=== PATIENT | male | born 1960 | race Caucasian/White ===

== ENCOUNTER 2019-07-19 23:42 | Inpatient (IN) | payer SELFPAY ==
[~2019-07-19] VITALS: Ht 177.8 cm; Wt 89.4 kg
[~2019-07-19 23:42] MED LIST: LISINOPRIL10 MG PO; MOBIC15 MG; SEROQUEL25 MG PO; ZOLOFT50 MG PO
[2019-07-20] MEDS ORDERED: METHYLPREDNISOLONE SOD SUCC 125 MG/2ML VIAL IV ONE
[2019-07-20] MEDS ORDERED: ASPIRIN 81 MG CHEW TAB PO ONE
[2019-07-20] MEDS ORDERED: ALBUTEROL/IPRATROPIUM 3 ML NEB NEB ONE
[2019-07-20] MEDS ORDERED: SODIUM CHLORIDE 0.9% 1000ML 1,000 ML IV SCH
[2019-07-20 00:03] LABS: BASOPHILS # (AUTO) 0.1 (0.0-0.1); BASOPHILS % 0.7 % (0.0-1.0); EOSINOPHILS # (AUTO) 0.2 (0.0-0.4); HEMATOCRIT 41.3 % (38.2-49.6); LYMPHOCYTES # (AUTO) 2.9 (1.0-3.2); LYMPHOCYTES % 38.9 % (18.0-39.1); MEAN CORPUSCULAR HEMOGLOBIN 31.7 pg (28-32); MEAN CORPUSCULAR HGB CONC 33.9 g/dL (31-35); MEAN CORPUSCULAR VOLUME 93.4 fL (81-99); MONOCYTES # (AUTO) 0.5 (0.2-0.8); MONOCYTES % 6.7 % (4.4-11.3); NEUTROPHILS # (AUTO) 3.8 (2.1-6.9); NEUTROPHILS % 51.2 % (38.7-80.0); PLATELET COUNT 214 x10e3/uL (140-360); RED BLOOD COUNT 4.42 x10e6/uL (4.3-5.7); RED CELL DISTRIBUTION WIDTH 12.4 % (11.7-14.4)
[2019-07-20 00:29] LABS: AMYLASE 23 U/L (25-125); LIPASE 10 U/L (8-78)
[2019-07-20 00:32] LABS: ALANINE AMINOTRANSFERASE 61 IU/L (0-55); ALBUMIN 3.8 g/dL (3.5-5.0); ALBUMIN/GLOBULIN RATIO 1.1 (0.8-2.0); ALKALINE PHOSPHATASE 57 IU/L (40-150); ANION GAP 14.9 mmol/L (8-16); BLOOD UREA NITROGEN 19 mg/dL (7-26); BUN/CREATININE RATIO 19 (6-25); CALCIUM 9.2 mg/dL (8.4-10.2); CARBON DIOXIDE 24 mmol/L (22-29); CHLORIDE 104 mmol/L (98-107); CREATINE KINASE 142 IU/L (30-200); CREATININE, SERUM 0.98 mg/dL (0.72-1.25); EST GLOMERULAR FILTRATION RATE > 60 ML/MIN (60-); GLUCOSE 120 mg/dL (74-118); POTASSIUM 3.9 mmol/L (3.5-5.1); SODIUM 139 mmol/L (136-145)
--- NOTE | 2019-07-20 01:01 | NUR ---
PT RESTING WITH EYES CLOSED, EASILY AROUSED, RESP NONLAB, NAD NOTED. STATES PAIN AND SOB GONE AND FEELS MUCH BETTER
--- NOTE | 2019-07-20 01:04 | Diagnostic Imaging Report ---
EXAMINATION: CHEST SINGLE (PORTABLE) INDICATION: Short of breath COMPARISON: Chest radiograph 05/15/2015 FINDINGS: AP view TUBES and LINES: None. LUNGS: Lungs are well inflated. Increased pulmonary interstitial markings. Prominent central pulmonary vasculature. PLEURA: No pleural effusion or pneumothorax. HEART AND MEDIASTINUM: Cardiac size is mildly enlarged. BONES AND SOFT TISSUES: No acute osseous lesion. Soft tissues are unremarkable. UPPER ABDOMEN: No free air under the diaphragm. IMPRESSION: Mild cardiomegaly and mild pulmonary interstitial edema. Signed by: Leo Gomez DO on 07/20/2019 1:01 AM
[2019-07-20] MEDS ORDERED: ALBUTEROL SULF 0.083% NEB SOLN 3 ML NEB NEB STA (01:54)
--- NOTE | 2019-07-20 01:54 | NUR ---
PT SITTING UP IN BED STATING HE IS FEELING SOB AGAIN, HOLDING HIS CHEST. DR ESCOBAR AWARE, WENT TO ROOM TO RE-EVAL. SCATTERED WHEEZES NOTED, NEBS ORDERED. AWAKE ALERT SKIN W/D RESP MILDLY LABORED. RT NOTIFIED
[2019-07-20] MEDS ORDERED: FUROSEMIDE INJ 10 MG/ML 4 ML VIAL IV ONE (02:15)
[2019-07-20] MEDS ORDERED: FUROSEMIDE INJ 10 MG/ML 4 ML VIAL ONE (02:17)
--- NOTE | 2019-07-20 02:26 | NUR ---
PT INCREASINGLY SOB, DIAPHORETIC, CRACKLES NOTED NOW AFTER NEB. PLACED ON BIPAP 15/5 40% RATE 12. TOLERATING WELL.
--- NOTE | 2019-07-20 02:47 | NUR ---
PT STATES MUCH BETTER NOW. AWAKE ALERT SKIN W/D RESP NONLAB. WARM BLANKET FOR COMFORT. VOIDED 600CC IN URINAL
--- OUTSIDE RECORDS SUMMARY | 2019-07-20 02:49 | XMS REPORT ---
Author Author [facility] Address Unknown Phone Unavailable Care Team Providers Care Locomotive Firer/Fireman Name Role Phone Amanda ESCOBAR Unavailable Unavailable Problems This patient has no known problems. Allergies, Adverse Reactions, Alerts This patient has no known allergies or adverse reactions. Medications This patient has no known medications. Results Test Description Test Time Test Comments Text Results Atomic Results Result Comments CHEST SINGLE (PORTABLE) 2019-07-20 01:00:00 [place] [id number] Patient Name: BRIAN RODRIGUEZ MR #: [id number] : 1960 Age/Sex: 59/M Req #: [id number] Adm Physician: Ordered by: KINDRA ESCOBAR MD Report #: [id number] Location: ER Room/Bed: Procedure: [id number] DX/CHEST SINGLE (PORTABLE) Exam Date: 07/20/19 Exam Time: 0030 REPORT STATUS: Signed EXAMINATION: CHEST SINGLE (PORTABLE) IN DICATION: Short of breath COMPARISON: Chest radiograph 05/15/2015 FINDINGS: AP view TUBES and LINES: None. LUNGS: Lungs are well inflated. Increased pulmonary interstitial markings. Prominent central pulmonary vasculature. PLEURA: No pleural effusion or pneumothorax. HEART AND MEDIASTINUM: Cardiac size is mildly enlarged. BONES AND SOFT TISSUES: No acute osseous lesion. Soft tissues are unremarkable. UPPER ABDOMEN: No free air under the diaphragm. IMPRESSION: Mild cardiomegaly and mild pulmonary interstitial edema. Signed by: Leo Gomez DO on 07/20/2019 1:01 AM Dictated By: LEO GOMEZ DO 0 Transcribed By: ALISSON on 07/20/19100 COPY TO: KINDRA ESCOBAR MD
--- NOTE | 2019-07-20 03:12 | NUR ---
PT STATES FEELS MUCH BETTER NOW. AWAKE ALERT SKIN W/D RESP NONLAB, NAD NOTED.
--- NOTE | 2019-07-20 06:47 | NUR ---
PT STATES WANTS BIPAP OFF, MAKING HIM FEEL ANXIOUS. MD AWARE, PLACED ON 2L NC, TOLERATING WELL. AWAKE ALERT SKIN W/D RESP NONLAB. NAD NOTED.
--- NOTE | 2019-07-20 06:48 | NUR ---
REPORT TO ANN KOEHLER
--- NOTE | 2019-07-20 06:49 | NUR ---
received report from off going nurse. patient in room in bed, awake and alert. no s/s of acute distress. resp even and nonlabored. pending room assignment for admission. bed down call light in reach, will continue to monitor.
--- NOTE | 2019-07-20 08:36 | NUR ---
DR. REEVES ROUNDING ON PT AT THIS TIME.
[2019-07-20 08:46] LABS: CREATINE KINASE MB 3.9 ng/mL (0-5.0)
--- NOTE | 2019-07-20 09:14 | NUR ---
DR. DAHL AT BEDSIDE ROUNDING ON PT AT THIS TIME.
[2019-07-20] MEDS: FUROSEMIDE INJ 10 MG/ML 4 ML VIAL IV SCH ×2 (09:35→17:39)
[2019-07-20] MEDS: CARVEDILOL 12.5 MG TAB PO SCH ×2 (09:35→17:39)
[2019-07-20] MEDS: LOSARTAN POTASSIUM 25 MG TAB PO SCH ×2 (09:36→17:39)
[2019-07-20] MEDS: ASPIRIN 81 MG ENTERIC COATED PO SCH (09:36)
--- NOTE | 2019-07-20 14:52 | History and Physical ---
HISTORY OF PRESENT ILLNESS: Mr. Bowers is a 59-year-old man who denies any prior medical history and denies taking any medications at home. He came to the emergency room with shortness of breath. The patient states that for the last 3 days, he has been short of breath and when he goes to bed, he gets very short of breath. He had to stand up, get under the ceiling fan because he cannot breathe. He also has some chest pain, but he denies any lower extremity edema. No nausea, no vomiting. Last night, shortness of breath got worse and he decided to come to the emergency room. PAST MEDICAL HISTORY: He denies. ALLERGIES: NO KNOWN DRUG ALLERGIES. SOCIAL HISTORY: He lives at home. He does not smoke, but he drinks. PAST SURGICAL HISTORY: He denies. PHYSICAL EXAMINATION: GENERAL: Today, he is awake and alert. He states he is feeling much better today. VITAL SIGNS: Temperature is 98, blood pressure is 148/74, heart rate is 94, respiratory rate is 17. HEART: Regular rate. LUNGS: Clear to auscultation. ABDOMEN: Soft. EXTREMITIES: Lower extremity, no edema and no erythema. LABORATORY DATA: On the blood work, white count 7.46, hemoglobin 14, and hematocrit 41.3. Potassium 3.9, creatinine is 0.98. Cardiac enzymes so far negative. BNP 136.8, amylase 23, lipase 10. Chest x-ray shows mild cardiomegaly with mild pulmonary interstitial edema. ASSESSMENT: 1. Shortness of breath and orthopnea, concerning for congestive heart failure. 2. Chest pain, rule out coronary artery disease. 3. Hypertension. PLAN: At present time, is to do cardiac rehab nurse. Cardiac enzymes x3. EKG, echocardiogram, and Cardiology consult. The patient probably will require a stress test, if he is stable. Continue aspirin 81 mg daily, losartan 25 mg twice a day, carvedilol 6.25 mg twice a day, and Lasix 40 mg IV twice a day. Continue to monitor electrolytes. All this was discussed with the patient. All questions were answered to satisfaction. MD FER Salvador/SEBASTIAN /[id number]
[2019-07-20 16:44] LABS: CREATINE KINASE MB 3.4 ng/mL (0-5.0)
--- NOTE | 2019-07-20 19:45 | NUR ---
PT ARRIVED FROM ER IN A STRETCHER WITH C/O CHF .AAOX3,AMBULATES.NO RESP.DISTRESS NO PAIN VOICED.TELE #[address]IV TO RIGHT AC IS PATENT.ORIENTED TO THE UNIT.BED LOCKED AND IN LOWEST POSITION.PHONE AND CALL LIGHT WITHIN REACH.INSTRUCTED TO CALL FOR ASSISTANCE NEEDED.
[2019-07-20 20:15] VITALS: BP 118/69
[2019-07-20 20:30] VITALS: BP 118/69
[2019-07-20 20:47] VITALS: BP 118/69
[2019-07-20 23:57] VITALS: BP 106/63
[2019-07-21 04:00] VITALS: BP 123/76
--- NOTE | 2019-07-21 04:22 | NUR ---
Stool occult blood sent to the lab.
[2019-07-21 06:36] LABS: BASOPHILS % 0.3 % (0.0-1.0); EOSINOPHILS % 0.3 % (0.0-6.0); HEMATOCRIT 42.1 % (38.2-49.6); LYMPHOCYTES # (AUTO) 3.1 (1.0-3.2); LYMPHOCYTES % 25.5 % (18.0-39.1); MEAN CORPUSCULAR HEMOGLOBIN 31.3 pg (28-32); MEAN CORPUSCULAR HGB CONC 33.3 g/dL (31-35); MONOCYTES # (AUTO) 0.7 (0.2-0.8); MONOCYTES % 5.8 % (4.4-11.3); NEUTROPHILS # (AUTO) 8.2 (2.1-6.9); NEUTROPHILS % 67.4 % (38.7-80.0); PLATELET COUNT 230 x10e3/uL (140-360); RED BLOOD COUNT 4.48 x10e6/uL (4.3-5.7); RED CELL DISTRIBUTION WIDTH 12.5 % (11.7-14.4)
[2019-07-21 07:08] LABS: ALANINE AMINOTRANSFERASE 49 IU/L (0-55); ALBUMIN 3.5 g/dL (3.5-5.0); ALKALINE PHOSPHATASE 50 IU/L (40-150); ANION GAP 12.6 mmol/L (8-16); BLOOD UREA NITROGEN 27 mg/dL (7-26); BUN/CREATININE RATIO 27 (6-25); CALCIUM 9.3 mg/dL (8.4-10.2); CARBON DIOXIDE 26 mmol/L (22-29); CHLORIDE 102 mmol/L (98-107); EST GLOMERULAR FILTRATION RATE > 60 ML/MIN (60-); GLUCOSE 148 mg/dL (74-118); POTASSIUM 3.6 mmol/L (3.5-5.1); SODIUM 137 mmol/L (136-145)
--- NOTE | 2019-07-21 07:14 | NUR ---
Bed side shift report given to the oncoming Rn.stable condition.
[2019-07-21 07:30] LABS: CHOL/HDL RATIO 3.6 (3.9-4.7)
[2019-07-21 07:50] LABS: THYROID STIMULATING HORMONE 1.314 uIU/mL (0.350-4.940)
[2019-07-21 08:32] VITALS: BP 108/61
--- NOTE | 2019-07-21 08:32 | NUR ---
MD DAHL INTO SEE PT, DISCUSSED POC
--- NOTE | 2019-07-21 09:34 | NUR ---
MD REEVES INTO SEE PT, DISCUSSED POC Addendum: 07/21/19 at 1001 by Viviana Nelson RN MD REEVES AWARE OF CURRENT BP 108/61, OKAYED TO GIVE AM MEDICATIONS
[2019-07-21] MEDS: CARVEDILOL 12.5 MG TAB PO SCH (09:40)
[2019-07-21] MEDS: ASPIRIN 81 MG ENTERIC COATED PO SCH (09:40)
[2019-07-21] MEDS: FUROSEMIDE INJ 10 MG/ML 4 ML VIAL IV SCH (09:40)
[2019-07-21] MEDS: LOSARTAN POTASSIUM 25 MG TAB PO SCH (09:40)
[2019-07-21 09:59] VITALS: BP 108/61
[2019-07-21] MEDS ORDERED: LASIX40 MG PO (11:33)
[2019-07-21] MEDS ORDERED: LOSARTAN POTASS25 MG PO (11:34)
[2019-07-21] MEDS ORDERED: COREG12.5 MG PO (11:35)
--- NOTE | 2019-07-21 11:41 | NUR ---
SPOKE WITH MD DAHL TO MAKE AWARE THAT MD REEVES HAS DISCHARGED PT FROM [facility], MD DAHL INSTRUCTED NURSE TO MAKE SURE MD REEVES AWARE OF ECHO RESULTS PRIOR TO DISCHARGING PT, TELEPHONED MD REEVES, AWAITING CALL BACK
--- NOTE | 2019-07-21 11:53 | NUR ---
SPOKE WITH MD REEVES, "AWARE OF ECHO RESULTS, OKAY TO SEND HOME"
[2019-07-21 12:55] VITALS: BP 116/81
--- NOTE | 2019-07-21 13:03 | NUR ---
DISCHARGE INSTRUCTIONS REVIEWED WITH PT, VERBALIZED UNDERSTANDING, AWAITING RIDE FOR DISCHARGE
--- NOTE | 2019-07-21 14:04 | NUR ---
PT AMBULATED OFF UNIT WITH NURSE AT SIDE FOR DISCHARGE, NO CHANGE IN CONDITION
--- NOTE | 2019-07-21 15:04 | Discharge Summary ---
HOSPITAL COURSE: Mr. Bowers is a 59-year-old man, who denies any prior medical history, came to the emergency room complaining of 3 days history of shortness of breath with orthopnea, also have some chest pain. No nausea. No vomiting. No lower extremity edema. He has been seen by finance accounting internship, started on diuretics, NOEMI inhibitor, ARBs, and beta-blockers as well as aspirin. He is doing much better. The plan is to discharge him home if it is okay with the finance accounting internship. PHYSICAL EXAMINATION: GENERAL: He is awake and alert. He wants to go home because he has a job interview. VITAL SIGNS: Temperature is 96.6, blood pressure 123/76. HEART: Regular rate. LUNGS: Clear to auscultation. ABDOMEN: Soft. LABORATORY DATA: On the blood work, potassium 3.6, creatinine is 1.0, glucose is 148. White count is 12.2, hemoglobin is 14, hematocrit is 42.1. Chest x-ray showed mild cardiomegaly with mild pulmonary interstitial edema. ASSESSMENT: 1. Shortness of breath with orthopnea, rule out congestive heart failure. 2. Chest pain. 3. Hypertension. PLAN: At present time is the patient is going to be on Lasix 40 mg once a day, aspirin 81 mg once a day, losartan 25 mg twice a day, Coreg 6.25 mg p.o. twice a day. We are going to discuss with finance accounting internship and if he agrees, the patient is going to be discharged home today or tomorrow. Please see home medication reconciliation list. He is to call me or come back to the emergency room if any recurrent problem. If not, he needs to follow up with his PCP in one week. MD FER Salvador/SEBASTIAN /[id number]
== END 2019-07-21 13:45 | disposition home or self-care (01) | DRG 293 ==
LOC: ER 23:42 → ERHOLD 07-20 02:41 → MED/SURG 07-20 19:33
PROVIDERS: ADMIT Internal Medicine; ATTEND Internal Medicine
DX: I11.0 Hypertensive heart disease with heart failure (principal); I25.5 Ischemic cardiomyopathy; F10.20 Alcohol dependence, uncomplicated; I44.7 Left bundle-branch block, unspecified; F10.10 Alcohol abuse, uncomplicated; I50.9 Heart failure, unspecified; I25.10 Atherosclerotic heart disease of native coronary artery without angina pectoris
CPT/HCPCS: 36415; 71045; 80053; 80061; 82150; 82270; 82550; 82553; 83690; 83880; 84443; 84484; 85025; 85379; 93005; 93306; 94640; 94660; 96374; 99284; J1940; J2930; J7030

== ENCOUNTER 2020-03-18 13:02 | Inpatient (IN) | payer OTHER, SELFPAY ==
[~2020-03-18] VITALS: Ht 177.8 cm; Wt 89.4 kg
[~2020-03-18 13:02] MED LIST changes: +COREG12.5 MG PO; +LASIX40 MG PO; +LOSARTAN POTASS25 MG PO
[2020-03-18 14:09] LABS: BASOPHILS % 0.4 % (0.0-1.0); EOSINOPHILS # (AUTO) 0.1 (0.0-0.4); EOSINOPHILS % 1.1 % (0.0-6.0); HEMATOCRIT 37.1 % (38.2-49.6); HEMOGLOBIN 12.2 g/dL (14.0-18.0); LYMPHOCYTES # (AUTO) 1.5 (1.0-3.2); LYMPHOCYTES % 21.1 % (18.0-39.1); MEAN CORPUSCULAR HEMOGLOBIN 31.4 pg (28-32); MEAN CORPUSCULAR HGB CONC 32.9 g/dL (31-35); MEAN CORPUSCULAR VOLUME 95.4 fL (81-99); MONOCYTES # (AUTO) 0.5 (0.2-0.8); NEUTROPHILS # (AUTO) 5.1 (2.1-6.9); NEUTROPHILS % 69.9 % (38.7-80.0); PLATELET COUNT 207 x10e3/uL (140-360); RED BLOOD COUNT 3.89 x10e6/uL (4.3-5.7); RED CELL DISTRIBUTION WIDTH 13.8 % (11.7-14.4)
[2020-03-18] MEDS ORDERED: METHYLPREDNISOLONE SOD SUCC 125 MG/2ML VIAL IV ONE (14:15)
[2020-03-18] MEDS ORDERED: LEVALBUTEROL HCL SOLN NEBU 1.25 MG/3 ML NEB INH ONE (14:15)
--- NOTE | 2020-03-18 14:32 | Diagnostic Imaging Report ---
EXAM: CHEST SINGLE (PORTABLE) DATE: 03/18/2020 1:35 PM INDICATION: Stress of breath COMPARISON: 07/20/2019 FINDINGS: The trachea is midline. There are increased interstitial markings present bilaterally. There is no evidence for large focal consolidation, pneumothorax, or significant pleural effusion. The cardiac silhouette remains enlarged. No acute osseous abnormalities identified. IMPRESSION: Cardiomegaly and increased pulmonary interstitial markings which are nonspecific but can be seen in the setting of edema. Signed by: Dr. Nilton Caldwell MD on 03/18/2020 2:28 PM
[2020-03-18 14:33] LABS: ALANINE AMINOTRANSFERASE 54 IU/L (0-55); ALBUMIN 3.6 g/dL (3.5-5.0); ALBUMIN/GLOBULIN RATIO 1.1 (0.8-2.0); ALKALINE PHOSPHATASE 56 IU/L (40-150); BLOOD UREA NITROGEN 10 mg/dL (7-26); BUN/CREATININE RATIO 14 (6-25); CALCIUM 8.9 mg/dL (8.4-10.2); CARBON DIOXIDE 22 mmol/L (22-29); CHLORIDE 106 mmol/L (98-107); CREATINE KINASE 94 IU/L (30-200); CREATININE, SERUM 0.73 mg/dL (0.72-1.25); EST GLOMERULAR FILTRATION RATE > 60 ML/MIN (60-); GLUCOSE 114 mg/dL (74-118); SODIUM 139 mmol/L (136-145)
[2020-03-18 16:10] LABS: ABG PH 7.38 (7.35-7.45)
[2020-03-18 16:11] LABS: ABG HCO3 24 mmol/L (22-26); ABG PCO2 41 mmHg (35-45)
--- NOTE | 2020-03-18 16:18 | Emergency Department Note ---
History of Present Illnes History of Present Illness Chief Complaint: Respiratory Stated Complaint: DIFFICULTY BREATHING 3 DAYS History of Present Illness This is a 59 year old male . 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 Any updates have been documented here. (SOL DUCKWORTH NP) Past Medical History Recent Fever: No Clinical Suspicion of Infectio: No New/Unexplained Change in Ment: No Past Medical History: Hypertension, CHF Other Medical History: CHRONIC L SHOULDER PAIN DEPRESSION/ANXIETY Past Surgical History: None (SOL DUCKWORTH NP) Social History Smoking Cessation: Never Smoker Alcohol Use: None Any Illegal Drug Use: No TB Exposure/Symptoms: No (SOL DUCKWORTH NP) Family History Family history of heart diseas: Yes (SOL DUCKWORTH NP) Other Last Tetanus: 2014 Any Pre-Existing Lines (PICC,: No Is patient up to date on immun: No (SOL DUCKWORTH NP) Review of Systems ROS Narrative Patient is a 59 year old male that presents with SOB x 3 days. (SOL DUCKWORTH NP) Review of Systems EENTM: no symptoms Cardiovascular: no symptoms Gastointestinal/Abdominal: no symptoms Genitourinary: no symptoms Musculoskeletal: no symptoms Integumentary: no symptoms Neurological: no symptoms Psychological: no symptoms Endocrine: no symptoms Hematological/Lymphatic: no symptoms Review of other systems All other systems reviewed and negative. (SOL DUCKWORTH NP) Physical Exam Related Data Allergies: Coded Allergies: No Known Allergies (Unverified , 05/13/15) Triage Vital Signs Vital Signs Date Time Temp Pulse Resp B/P (MAP) Pulse Ox O2 Delivery O2 Flow Rate FiO2 03/18/20 13:03 98.4 108 20 164/82 98 (SOL DUCKWORTH NP) Exam Narrative Exam Narrative 1400-*Patient is a 59 year old that presents with SOB x 3 days that is progressively worsening. Patient states that walking any distance SOB worsens. 1600-Discussed all results and admission. patient states he is feeling better after the breathing treatment. OK to admission and all questions answered 1618- Patient admitted to [facility] (SOL DUCKWORTH NP) Physical Exam CONSTITUTIONAL Constitutional: well-developed, well-nourished HENT HENT: normocephalic EYES Eyes: PERRL NECK Neck: ROM normal PULMONARY Pulmonary: rhonchi CARDIOVASCULAR Cardiovascular: tachycardia GASTROINTESTINAL Abdominal: soft GENITOURINARY SKIN Skin: warm, dry MUSCULOSKELETAL Musculoskeletal: ROM normal NEUROLOGICAL Neurological: alert, oriented x 3, DTRs normal PSYCHOLOGICAL Psychiatric/behavioral: mood/affect normal (SOL DUCKWORTH NP) Results Laboratory Lab results reviewed: Yes (SOL DUCKWORTH NP) Imaging Y: Yes (SOL DUCKWORTH NP) Diagnostics Tests Diagnostic test(s) reviewed: Yes Diagnostic comments EKG 1453 Sinus Rhythm LBBB NM- 148 QRS-168 Interpreted by myself and Dr Welsh (SOL DUCKWORTH NP) Critical Care Time Subsequent provider I assumed direction of critical care for this patient from another provider of my specialty. (SOL DUCKWORTH NP) Assessment & Plan Assessment & Plan Problems: (1) Respiratory distress (VASILIY WELSH DO) Last Vital Signs Date Time Temp Pulse Resp B/P (MAP) Pulse Ox O2 Delivery O2 Flow Rate FiO2 03/18/20 13:03 98.4 108 20 164/82 98 (SOL DUCKWORTH NP) Home Meds Reported Medications Carvedilol (COREG) 12.5 Mg Tab, 6.25 MG PO BID, #60 07/21/19 Losartan Potassium (LOSARTAN POTASSIUM) 25 Mg Tablet, 25 MG PO BID, #60 07/21/19 Furosemide (LASIX) 40 Mg Tablet, 40 MG PO DAILY, #30 TAB 07/21/19 Attestation Medications in the ED The patient's history, exam findings, diagnostics, and a summary of any interventions or procedures was reviewed in detail with our RACHEL. I personally interviewed and examined the patient, and I have reviewed and agree with the HPI andexam. My personal exam shows age approrpiate mildly tachypenic male, maintaining airway. I confirm the diagnosis as documented by the RACHEL. I have reviewed and agree with the care plan articulated in the disposition section. (SANDHIR, KATHE AMANDA JOHNNA NP March 18, 2020 14:06 VASILIY WELSH DO March 18, 2020 22:58
[2020-03-18] MEDS ORDERED: ONDANSETRON HCL INJ 2MG/ML 2ML 2 MG/ML VIAL IV PRN (16:30)
[2020-03-18] MEDS ORDERED: ASPIRIN 81 MG CHEW TAB PO ONE (16:30)
--- NOTE | 2020-03-18 17:30 | NUR ---
PT RECEIVED FROM ER. PT IS AOOX4. CALL LIGHT WITH IN EASY REACH. BED IS LOW AND LOCKED. SIDE RAILS X2. INSTRUCTED PT TO USE CALL LIGHT FOR ALL THE NEEDS. EDUCATED PT ABOUT FALL PRECAUTIONS. PT VERBALIZED UNDERSTANDING. PT DENIES NEEDS AT THIS TIME.
[2020-03-18 17:45] VITALS: BP_SYST 138; BP_SYST 144; BP_DIAS 87; BP_DIAS 98
[2020-03-18 18:00] VITALS: BP 138/87
[2020-03-18] MEDS: CARVEDILOL 12.5 MG TAB PO SCH (18:10)
[2020-03-18 18:28] VITALS: BP 138/98
--- NOTE | 2020-03-18 19:15 | NUR ---
BEDSIDE SHIFT REPORT GIVEN TO THE AVIONICS MANAGER RN. PT DENIED FURTHER NEEDS.
--- NOTE | 2020-03-18 19:21 | NUR ---
pt walking rounds complete, pt lying on his left side resp even and unflavored at this time. tele monitor in place, will cont to monitor call light in reach.
--- NOTE | 2020-03-18 19:40 | Consultation ---
DATE OF CONSULTATION: Pulmonary Critical Care Consultation CHIEF COMPLAINT: Dyspnea. HISTORY OF PRESENT ILLNESS: The patient is a 59-year-old man. He has a history of prior respiratory problems. He required hospitalization [facility] in the fall of 2018 with shortness of breath. He had a cardiac evaluation at that time that was negative. He now returns with dyspnea for several days. He denies any chest pain. He is not having fevers or cough. After arriving in the emergency department, he received some bronchodilators as well as some Solu-Medrol, and states that he feels better, although he is hungry. PAST MEDICAL HISTORY: 1. The patient denies any prior history of asthma or bronchitis. 2. Hypertension. PAST SURGICAL HISTORY: Noncontributory. ALLERGIES: THERE ARE NO KNOWN DRUG ALLERGIES. SOCIAL HISTORY: The patient is not a smoker. He is not an active drinker. PHYSICAL EXAMINATION: VITAL SIGNS: The patient is afebrile. HEENT: Shows no facial swelling or erythema. CARDIAC: Reveals regular rate and rhythm with normal S1 and S2. LUNGS: Auscultation of lungs reveals rhonchorous breath sounds bilaterally. There is no wheezing. ABDOMEN: Soft and nontender. There is no rebound or guarding. EXTREMITIES: Shows no leg edema or calf tenderness. There is no cyanosis or clubbing. SKIN: Shows no rashes. NEUROLOGICAL: Shows no focal abnormalities. LABORATORY DATA: White blood cell count is 7.3 and the hemoglobin is 12.2. The platelet count is 207. BUN and creatinine ratio is 10 to 0.73. Other electrolytes are within normal limits. BNP is 326. RADIOGRAPHIC DATA: Cardiomegaly, some mild increased interstitial markings. IMPRESSION: 1. Dyspnea of unclear etiology. 2. Hypertension. PLAN: 1. Echocardiogram and serial cardiac enzymes. 2. Continue bronchodilators. 3. Monitor blood pressure. MD KONRAD Aqiuno/SEBASTIAN /[id number]
[2020-03-18 20:27] VITALS: BP 161/90
[2020-03-18 21:00] VITALS: BP 161/90
[2020-03-18] MEDS ORDERED: ZOLPIDEM TARTRATE 5 MG TAB PO PRN (21:00)
[2020-03-19] VITALS (8 sets, daily range): BP systolic 120–155; BP diastolic 83–97
--- NOTE | 2020-03-19 01:27 | NUR ---
pt resting, resp even and unlabored at this time, bed alarm on no distress noted,alexander light in reach.
[2020-03-19] MEDS: LOSARTAN POTASSIUM 25 MG TAB PO SCH (06:00)
--- NOTE | 2020-03-19 07:00 | NUR ---
BEDSIDE SHIFT REPORT RECEIVED FROM THE VICE PRESIDENT AND PORTFOLIO MANAGER RN. EDUCATED PT ABOUT FALL PRECAUTIONS. PT VERBALIZED UNDERSTANDING. CALL LIGHT WITH IN EASY REACH. INSTRUCTED PT TO USE CALL LIGHT FOR ALL THE NEEDS. BED IS LOW AND LOCKED. SIDE RAILS X2. PT DENIES NEEDS AT THIS TIME.
--- NOTE | 2020-03-19 07:02 | NUR ---
walking rounds complete, report given to on coming nurse. pt stable at shift change.
[2020-03-19] MEDS: LEVALBUTEROL HCL SOLN NEBU 1.25 MG/3 ML NEB INH SCH ×2 (07:10→19:57)
[2020-03-19 07:58] LABS: BASOPHILS % 0.1 % (0.0-1.0); HEMATOCRIT 41.2 % (38.2-49.6); HEMOGLOBIN 13.2 g/dL (14.0-18.0); LYMPHOCYTES # (AUTO) 1.1 (1.0-3.2); MEAN CORPUSCULAR VOLUME 96.7 fL (81-99); MONOCYTES # (AUTO) 0.7 (0.2-0.8); MONOCYTES % 5.6 % (4.4-11.3); NEUTROPHILS # (AUTO) 10.2 (2.1-6.9); NEUTROPHILS % 84.9 % (38.7-80.0); PLATELET COUNT 188 x10e3/uL (140-360); RED BLOOD COUNT 4.26 x10e6/uL (4.3-5.7)
[2020-03-19 08:46] LABS: ALANINE AMINOTRANSFERASE 49 IU/L (0-55); ALBUMIN 3.6 g/dL (3.5-5.0); ALKALINE PHOSPHATASE 55 IU/L (40-150); ANION GAP 13.5 mmol/L (8-16); BLOOD UREA NITROGEN 11 mg/dL (7-26); BUN/CREATININE RATIO 15 (6-25); CALCIUM 9.2 mg/dL (8.4-10.2); CARBON DIOXIDE 19 mmol/L (22-29); CHLORIDE 110 mmol/L (98-107); CREATININE, SERUM 0.71 mg/dL (0.72-1.25); EST GLOMERULAR FILTRATION RATE > 60 ML/MIN (60-); GLUCOSE 129 mg/dL (74-118); POTASSIUM 4.5 mmol/L (3.5-5.1); SODIUM 138 mmol/L (136-145)
[2020-03-19] MEDS: CARVEDILOL 12.5 MG TAB PO SCH ×2 (08:50→16:49)
[2020-03-19 09:56] LABS: CREATINE KINASE MB 2.8 ng/mL (0-5.0)
[2020-03-19] MEDS ORDERED: ONDANSETRON HCL 4 MG ORAL DISINTEGRATING TAB PO PRN (13:00)
--- NOTE | 2020-03-19 14:26 | NUR ---
ASSESSMENT: Spiritual distress Referred by Nursing. Pt overwhelmed by illness and responsibilities. Pt recounted deaths in his immediate family over the past 6 years. Pt expressed emotions thru words and tears. 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 Pt worried about his health. Intervention: Provided unhurried empathic listening. Facilitated illness review and storytelling. Provided information on how to reach patient relations representative, if needed. Outcome: Pt expressed appreciation for support, Will follow as able. [employer] Consultant Spiritual Care Department O: [phone]
[2020-03-19 17:20] LABS: CREATINE KINASE MB 2.5 ng/mL (0-5.0)
--- NOTE | 2020-03-19 19:00 | NUR ---
BEDSIDE SHIFT REPORT GIVEN TO THE MODERN GREEK STUDIES PROFESSOR RN. PT DENIED FURTHER NEEDS.
--- NOTE | 2020-03-20 00:37 | History and Physical ---
PCP: Not listed. CONSULTING PHYSICIAN: Dr. Reinier Mederos. CHIEF COMPLAINT: Dyspnea and shortness of breath. HISTORY OF PRESENT ILLNESS: Mr. Bowers is a 59-year-old male with complaints of 3-day duration of shortness of breath. He has also complained to the staff that he awakens with shortness of breath. Denies any sick contacts or recent traveling. PAST MEDICAL HISTORY: Hypertension, systolic congestive heart failure, chronic left shoulder pain, depression/anxiety, insomnia. PAST SURGICAL HISTORY: Noncontributory. FAMILY HISTORY: Noncontributory. SOCIAL HISTORY: Per previous H and P, lives at home. Does not smoke, but he does drink alcohol. ALLERGIES: NO KNOWN ALLERGIES. MEDICATIONS: He is on 40 mg of Lasix daily at home along with Coreg 6.25 mg p.o. b.i.d. and losartan potassium 25 mg p.o. b.i.d. REVIEW OF SYSTEMS: The patient is asleep, very difficult to arouse. Per staff, the patient has complained of insomnia. He has had difficulty sleeping for the last 3 nights and states he does not want to be bothered until 0430 in the morning for morning vital signs per the staff. He has complained of difficulty swallowing, dyspnea on exertion, shortness of breath, awakening from sleep with shortness of breath, as well as anxiety. PHYSICAL EXAMINATION: VITAL SIGNS: Temperature 96.3, T-max 98.4, heart rate 97, blood pressure 123/84, respirations 20, oxygen saturation 97%. He is currently on oxygen at 2 L via nasal cannula. GENERAL: Supine, lying on his right side, asleep. LUNGS: Generally clear to auscultation on oxygen at 2 L/minute via cannula. HEENT: EOMI. NECK: Supple. CARDIOVASCULAR: Regular rate and rhythm. No murmur. ABDOMEN: Bowel sounds positive. Soft and nontender. EXTREMITIES: Without pitting edema. No clubbing or cyanosis. NEUROLOGIC: GCS 14; eye 3, verbal 5, motor 6. LABORATORY DATA: WBCs yesterday 7.30, hemoglobin 12.2, hematocrit 37.1, and platelets 207. PH of 7.38, pCO2 of 41, HCO3 of 24, base excess -4, and FiO2 of 32% on blood gas. Sodium 139, potassium 4.0, chloride 106, CO2 of 22, BUN 10, creatinine 0.73, estimated GFR greater than 60, glucose 114, calcium 8.9, total bilirubin 0.6, AST 33, ALT 54, alkaline phosphatase 56, creatine kinase 94. CK-MB 3.7, troponin I 0.023. B-type natriuretic peptide 326.5. Total protein 6.9, albumin 3.6. Today, sodium 138, potassium 4.5, chloride 110, CO2 of 19, BUN 11, creatinine 0.71, estimated GFR greater than 60, glucose 129, calcium 9.2, total bilirubin 0.5, AST 28, ALT 49, alkaline phosphatase 55, total protein 7.2, albumin 3.6. Creatine kinase 72, CK-MB 2.8, troponin I 0.019 at around 08:00 a.m. Later at 1634, creatine kinase 63, CK-MB is 2.5, troponin I 0.032. WBC 12.05, hemoglobin 13.2, hematocrit 41.2, platelets 188, neutrophils 84.9%. IMAGING: Chest x-ray yesterday showed cardiomegaly and increased pulmonary interstitial markings, which are nonspecific, but can be seen in the setting of edema. Echocardiogram yesterday showed an ejection fraction of 30% with mild mitral regurgitation and tricuspid regurgitation. Today, 12-lead EKG showed normal sinus rhythm with a heart rate of 91. ASSESSMENT AND PLAN: 1. Dyspnea of unclear etiology. Pulmonology has been consulted. Continue to monitor chest x-ray results. He is on Xopenex neb treatments. 2. Chronic systolic congestive heart failure. Ejection fraction 30%. Elevated BNP at 326. Lasix resumed per home medications. Consider fluid restriction. 3. Controlled hypertension. Blood pressure 123/84. Continue losartan and Coreg. 4. Depression/anxiety. Monitor. 5. Dysphagia. We will ask Speech Language Pathology to obtain a bedside swallow evaluation. 6. Insomnia. The patient had an Ambien earlier and is sound to sleep. We will not disturb him until in the morning. 7. Prophylaxis. Protonix. Time spent 60 minutes. Billing code [id number]. Dictated by Gregg Noyola NP MD CORBY NavarroP/MODL /[id number]
[2020-03-20 01:09] VITALS: BP 168/91
[2020-03-20] MEDS: LOSARTAN POTASSIUM 25 MG TAB PO SCH (06:00)
--- NOTE | 2020-03-20 07:00 | NUR ---
BEDSIDE SHIFT REPORT RECEIVED FROM THE DONOR PROCESSOR RN. EDUCATED PT ABOUT FALL PRECAUTIONS. PT VERBALIZED UNDERSTANDING. CALL LIGHT WITH IN EASY REACH. INSTRUCTED PT TO USE CALL LIGHT FOR ALL THE NEEDS. BED IS LOW AND LOCKED. SIDE RAILS X2. PT DENIES NEEDS AT THIS TIME.
[2020-03-20] MEDS: LEVALBUTEROL HCL SOLN NEBU 1.25 MG/3 ML NEB INH SCH ×2 (07:25→14:55)
[2020-03-20] MEDS ORDERED: PANTOPRAZOLE SOD 40 MG TABEC PO SCH (07:30)
[2020-03-20 07:37] LABS: BASOPHILS # (AUTO) 0.1 (0.0-0.1); BASOPHILS % 0.5 % (0.0-1.0); EOSINOPHILS # (AUTO) 0.1 (0.0-0.4); EOSINOPHILS % 0.6 % (0.0-6.0); HEMATOCRIT 39.7 % (38.2-49.6); HEMOGLOBIN 12.9 g/dL (14.0-18.0); LYMPHOCYTES # (AUTO) 2.6 (1.0-3.2); LYMPHOCYTES % 25.2 % (18.0-39.1); MEAN CORPUSCULAR HEMOGLOBIN 31.5 pg (28-32); MEAN CORPUSCULAR HGB CONC 32.5 g/dL (31-35); MEAN CORPUSCULAR VOLUME 97.1 fL (81-99); MONOCYTES # (AUTO) 0.6 (0.2-0.8); MONOCYTES % 5.9 % (4.4-11.3); NEUTROPHILS % 67.2 % (38.7-80.0); PLATELET COUNT 219 x10e3/uL (140-360); RED BLOOD COUNT 4.09 x10e6/uL (4.3-5.7); RED CELL DISTRIBUTION WIDTH 14.1 % (11.7-14.4)
[2020-03-20 07:57] LABS: BLOOD UREA NITROGEN 22 mg/dL (7-26); BUN/CREATININE RATIO 29 (6-25); CALCIUM 8.4 mg/dL (8.4-10.2); CARBON DIOXIDE 23 mmol/L (22-29); CHLORIDE 108 mmol/L (98-107); CREATININE, SERUM 0.75 mg/dL (0.72-1.25); EST GLOMERULAR FILTRATION RATE > 60 ML/MIN (60-); GLUCOSE 96 mg/dL (74-118); PHOSPHORUS 3.3 MG/DL (2.3-4.7); SODIUM 139 mmol/L (136-145)
[2020-03-20 08:00] VITALS: BP 121/91
--- NOTE | 2020-03-20 08:00 | NUR ---
PAGED RESPIRATORY REGARDING NEB TREATMENT
[2020-03-20 08:40] VITALS: BP 121/91
[2020-03-20] MEDS ORDERED: FUROSEMIDE 40 MG TAB PO SCH (09:00)
[2020-03-20] MEDS: CARVEDILOL 12.5 MG TAB PO SCH ×2 (09:34→17:10)
--- NOTE | 2020-03-20 10:15 | NUR ---
CALL RECEIVED FROM LAB. COVID SWAB FROM ER PENDING FOR ORDER. PRAKASH PER DUONG KINNEY.
--- NOTE | 2020-03-20 10:45 | NUR ---
SWALLOW EVEAL AT BEDSIDE. NEW ORDER FOR MBS. OKAY PER DUONG KINNEY.
[2020-03-20 12:00] VITALS: BP 112/101
--- NOTE | 2020-03-20 12:32 | NUR ---
Discontinuing PT services since patient is Mod I in functional mobility. Thank you. Addendum: 03/20/20 at 1233 by David garcia PT Amended: Links added.
--- NOTE | 2020-03-20 12:40 | NUR ---
GAVE PACKET OF INFORMATION WITH COMMUNITY [employer] FOR ASSISTANCE WITH LOW TO NO INCOME TO PATIENT. RESOURCES THAT PATIENT MAY BE ABLE TO FOLLOW UP UPON DISCHARGE. PT EDUCATED ON EACH RESOURCE AND UNDERSTANDING HOW TO FOLLOW UP TO SEE IF QUALIFIED FOR EACH RESOURCE.
[2020-03-20 16:00] VITALS: BP 110/78
--- NOTE | 2020-03-20 16:29 | NUR ---
PAGED DR. Amanda GAN AND DUONG KINNEY PER THE PT REQUEST. OKAY TO D/C PT PER Amanda GAN. DUONG KINNEY WILL SE ETHE PT THIS EVENING. PT VERBALIZED UNDERSTANDING AND DENIED FURTHER NEEDS.
[2020-03-20] MEDS ORDERED: COREG12.5 MG PO (17:32)
[2020-03-20] MEDS ORDERED: SIMVASTATIN40 MG PO (17:32)
[2020-03-20] MEDS ORDERED: LASIX40 MG PO (17:32)
[2020-03-20] MEDS ORDERED: ASPIRIN EC81 MG PO (17:32)
[2020-03-20] MEDS ORDERED: LOSARTAN POTASS25 MG PO (17:32)
--- NOTE | 2020-03-20 17:39 | NUR ---
PRAKASH TO D/C PT PER DR. Ancelmo GAN.
--- NOTE | 2020-03-20 18:20 | NUR ---
PT DISCHARGED HOME SAFELY WITH FAMILY MEMBER. TELEMETRY AND IV REMOVED, TIP INTACT. DRESSING APPLIED. RX GIVEN. DISCHARGE INSTRUCTIONS GIVEN AND PATIENT VERBALIZED UNDERSTANDING. PT DENIED FURTHER NEEDS.
--- NOTE | 2020-03-21 04:47 | Discharge Summary ---
PRIMARY CARE PHYSICIAN: He has no primary care physician. CONSULTING PHYSICIANS: Reinier Mederos MD, with Pulmonology. Mr. Bowers is a 59-year-old male with complaints of 3-day duration of shortness of breath. He also complained to staff that he awakens with shortness of breath. Denied any sick contacts or recent traveling. He had been admitted here last July for similar signs and symptoms. ADMITTING DIAGNOSES: 1. Dyspnea of unclear etiology. 2. Chronic systolic congestive heart failure. 3. Uncontrolled hypertension. 4. Depression/anxiety. 5. Dysphagia. 6. Insomnia. DISCHARGE DIAGNOSES: 1. Dyspnea of unclear etiology. 2. Chronic systolic congestive heart failure. 3. Uncontrolled hypertension. 4. Depression/anxiety. 5. Dysphagia. 6. Insomnia. Chest x-ray had shown cardiomegaly with increased pulmonary-interstitial markings, which were nonspecific, but can be seen in the setting of edema. Echocardiogram done on 03/18 showed an ejection fraction of 30% with mild mitral regurgitation and tricuspid regurgitation. A 12-lead EKG showed normal sinus rhythm with a heart rate of 91. He was on Xopenex nebulizer treatments. His home medications for CHF were resumed including Lasix. B-type natriuretic peptide was elevated at 326. The patient does not recall when he last saw a physician. He does not have a PCP and he states he has had assistance from [employer] to apply for Medicaid. Today, he feels much better, much less short of breath. He slept very well last night, has had difficulty sleeping for 3 nights prior to that. He states obstructive sleep apnea runs in the family, however, as he does not see a physician regularly, he has not been tested with a sleep study. He had Ambien last night, which also helped him sleep. Speech language pathology saw the patient and completed a bedside swallow evaluation. He can follow up with Dr. Guallpa in his office in 1-2 weeks, hopefully obtain the Medicaid assistance that he needs, apparently constipated upon admission. Unable to have a bowel movement for the past 3 days, but had multiple BMs today and feels much better today. PHYSICAL EXAMINATION: VITAL SIGNS: Today, temperature 97.0, T-max 97.9, heart rate 74, blood pressure 121/91, respirations 19, oxygen saturation 99%. Height 5 feet 10 inches, weight 197 pounds. BMI 28.26. GENERAL: Sitting on the edge of the bed, wearing street clothes. LUNGS: With scattered minimal wheezing. HEENT: Extraocular eye movements intact. NECK: Supple. CARDIOVASCULAR: Regular rate and rhythm. No murmur. ABDOMEN: Bowel sounds positive. Soft, nontender. EXTREMITIES: No clubbing, edema, cyanosis, or signs of DVT. NEUROLOGIC: GCS 15. Nonfocal. LABORATORY DATA: Today, WBC is 10.33, hemoglobin 12.9, hematocrit 39.7, platelets 219. Yesterday, the WBCs of 12.05. Sodium 139, potassium 4.0, chloride 108, CO2 23, BUN 22, creatinine 0.75, GFR greater than 60. Glucose 96, calcium 8.4, phosphorus 3.3, magnesium 2.0. Coronavirus collected 03/18 is still pending. Echocardiogram completed on 03/18 showed an ejection fraction of 30%. Continue cardiac diet. Activity level as tolerated. Discharge prescriptions include: 1. Lasix 40 mg p.o. daily. 2. Losartan potassium 25 mg p.o. b.i.d. 3. Coreg 6.25 mg p.o. b.i.d. 4. Simvastatin 20 mg at bedtime. 5. Aspirin 81 mg daily. The case discussed with Dr. Mederos, who agrees the patient should be discharged home today. The patient either needs to establish a PCP and/or follow up with Dr. Guallpa in 1-2 weeks. A 60-day supply on all prescriptions have been provided. Dictated by Gregg Noyola NP MD DUY Navarro/SEBASTIAN /[id number]
== END 2020-03-20 18:50 | disposition home or self-care (01) | DRG 204 ==
LOC: ER 13:06 → ERHOLD 16:21 → MED/SURG2 17:47 → OBSVTOIN 03-20 15:47
PROVIDERS: ADMIT Internal Medicine; ATTEND Internal Medicine
DX: R06.00 Dyspnea, unspecified (principal); I50.22 Chronic systolic (congestive) heart failure; I11.0 Hypertensive heart disease with heart failure; F32.9 Major depressive disorder, single episode, unspecified; F41.9 Anxiety disorder, unspecified; G47.00 Insomnia, unspecified; R13.10 Dysphagia, unspecified
CPT/HCPCS: 36415; 36600; 71045; 80048; 80053; 82550; 82553; 82805; 82948; 83735; 83880; 84100; 84484; 85025; 87635; 93005; 93041; 93306; 94640; 99284; G0378; J2930

== ENCOUNTER 2020-04-11 02:08 | Emergency (ER) | payer SELFPAY ==
[~2020-04-11] VITALS: Ht 177.8 cm; Wt 89.4 kg
[~2020-04-11 02:08] MED LIST changes: +ASPIRIN EC81 MG PO; +SIMVASTATIN40 MG PO
--- OUTSIDE RECORDS SUMMARY | 2020-04-11 02:12 | XMS REPORT | Continuity of Care Document ---
Author Author [facility] t Organization [facility] Address [address] [place] [address] Phone Unavailable Care Team Providers Care Director Dance Name Role Phone NO, PCP PCP Unavailable Erika WELSH Attphys Unavailable Amanda ESCOBAR Attphys Unavailable Payers Payer Name Policy Type Policy Number Effective Date Expiration Date S eunice Joann NA [facility] [id number] [facility] Problems Condition Name Condition Details Condition Category Status Onset Date Resolution Date Last Treatment Date Treating Clinician Comments Source Cellulitis Cellulitis Problem Active 2015-05-13 00:00:00 [facility] Osteomyelitis Osteomyelitis Problem Active 2015-05-13 00:00:00 [facility] New onset of congestive heart failure New onset of congestiv e heart failure Problem Active [facility] Respiratory distress Respiratory distress Problem Active [facility] Allergies, Adverse Reactions, Alerts This patient has no known allergies or adverse reactions. Social History Social Habit Start Date Stop Date Quantity Comments Source Sex Assigned At 1960 00:00:00 1960 00:00:00 Male [facility] Medications Ordered Medication Name Filled Medication Name Start Date Stop Da te Current Medication? Ordering Clinician Indication Dosage Frequency Signature (SIG) Comments Components Source Aspirin (Aspirin Ec) 81 Mg TABLET. Aspirin (Aspirin Ec) 81 Mg TABLET. 2020-03-20 17:32:00 Yes 81 Daily [facility] Carvedilol (Coreg) 12.5 Mg TAB Carvedilol (Coreg) 12.5 Mg TA B 2020-03-20 17:32:00 Yes 6.25 Twice A Day [facility] Furosemide (Lasix) 40 Mg TABLET Furosemide (Lasix) 40 Mg TAB LET 2020-03-20 17:32:00 Yes 40 Daily [facility] Losartan Potassium Losartan Potassium 2020-03-20 17:32:00 Yes 25 Twice A Day [facility] Simvastatin Simvastatin 2020-03-20 17:32:00 Yes 20 T mariaelena At 9:00PM [facility] Carvedilol (Coreg) 12.5 Mg TAB Carvedilol (Coreg) 12.5 Mg TAB 2020-03-20 00:00:00 No 6.25 Twice A Day [facility] Furosemide (Lasix) 40 Mg TABLET Furosemide (Lasix) 40 Mg TABLET 2020-03-20 00:00:00 No 40 Daily [facility] Losartan Potassium Losartan Potassium 2020-03-20 00:00:00 No 25 Twice A Day [facility] Vital Signs Vital Name Observation Time Observation Value Comments Source Body Temperature 2020-03-20 16:00:00 97.4 [degF] [facility] BMI (Body Mass Index) 2020-03-18 18:00:00 28.3 kg/m2 [facility] Weight 2020-03-18 13:03:00 197 [lb_av] [facility] Procedures This patient has no known procedures. Plan of Care Planned Activity Planned Date Details Comments Source Instructions Dyspnea [facility] Instructions Congestive Heart Failure [facility] Instructions Hypertension [facility] Encounters Start Date/Time End Date/Time Encounter Type Admission Type Attendi [facility] Emergency Department Facility Care Department Encounter ID Source 2020-03-20 15:47:00 2020-03-20 18:50:00 Discharged Inpatient 1 VIVIENNE WELSHJOSEF [facility] [id number] [facility] 2019-07-20 02:41:00 2019-07-21 13:45:00 Discharged Inpatient 1 KINDRA ESCOBAR [facility] [id number] [facility] Results Test Description Test Time Test Comments Results Result Comments Source Blood leukocytes automated count (number/volume) 2020-03-20 07:29:00 Test Item White Blood Count (test code = 6690-2) 10.33 4.8-10.8 [facility] erythrocytes automated count (number/volume)2020-03-20 07:29:00* Test Item Value Reference Range Interpretation Comments Red Blood Count (test code = 789-8) 4.09 4.3-5.7 [facility] CenterBlood hemoglobin measurement (moles/volume)2020-03-20 07:29:00* Test Item Value Reference Range Interpretation Comments Hemoglobin (test code = 93450-0) 12.9 14.0-18.0 [facility] CenterAutomated blood hematocrit (volume fraction)2020-03-20 07:29:00* Test Item Value Reference Range Interpretation Comments Hematocrit (test code = 4544-3) 39.7 38.2-49.6 [facility] CenterAutomated erythrocyte mean corpuscular qjzvvf3828-86-05 07:29:00* Test Item Value Reference Range Interpretation Comments Mean Corpuscular Volume (test code = 787-2) 97.1 81-99 [facility] CenterAutomated erythrocyte mean corpuscular hemoglobin (mass per erythrocyte)2020-03-20 07:29:00* Test Item Value Reference Range Interpretation Comments Mean Corpuscular Hemoglobin (test code = 785-6) 31.5 28-32 [facility] CenterAutomated erythrocyte mean corpuscular hemoglobin concentration measurement (mass/volume)2020-03-20 07:29:00* Test Item Value Reference Range Interpretation Comments Mean Corpuscular Hemoglobin Concent (test code = 786-4) 32.5 31-35 [facility] CenterRDW ImpLj-Mvg5919-71-13 07:29:00* Test Item Value Reference Range Interpretation Comments Red Cell Distribution Width (test code = 49454-1) 14.1 11.7 -14.4 [facility] CenterAutomated blood platelet count (count/volume)2020-03-20 07:29:00* Test Item Value Reference Range Interpretation Comments Platelet Count (test code = 777-3) 219 140-360 [facility] CenterAutomated blood segmented neutrophil count as percentage of total cyyerybcew7574-20-24 07:29:00* Test Item Value Reference Range Interpretation Comments Neutrophils (%) (Auto) (test code = 60182-9) 67.2 38.7-80.0 [facility] CenterAutomated blood lymphocyte count as percentage ot total udnsazbzlh0286-60-89 07:29:00* Test Item Value Reference Range Interpretation Comments Lymphocytes (%) (Auto) (test code = 736-9) 25.2 18.0-39.1 [facility] CenterAutomated blood monocyte count as percentage of total zqknpcgodx0964-72-10 07:29:00* Test Item Value Reference Range Interpretation Comments Monocytes (%) (Auto) (test code = 5905-5) 5.9 4.4-11.3 [facility] CenterAutomated blood eosinophil count as percentage of total emolypjkvk7480-43-93 07:29:00* Test Item Value Reference Range Interpretation Comments Eosinophils (%) (Auto) (test code = 713-8) 0.6 0.0-6.0 [facility] CenterAutomated blood basophil count as percentage of total snqybvfzci4534-48-40 07:29:00* Test Item Value Reference Range Interpretation Comments Basophils (%) (Auto) (test code = 706-2) 0.5 0.0-1.0 [facility] CenterFluoroscopic procedure less than one hour xnkdgcur1854-70-77 07:29:00* Test Item Value Reference Range Interpretation Comments IM GRANULOCYTES % (test code = IM GRANULOCYTES %) 0.6 0.0- 1.0 [facility] CenterAutomated blood neutrophil count 2020-03-20 07:29:00* Test Item Value Reference Range Interpretation Comments Neutrophils # (Auto) (test code = 751-8) 7.0 2.1-6.9 [facility] CenterBlood lymphocytes count (number/volume) 2020-03-20 07:29:00* Test Item Value Reference Range Interpretation Comments Lymphocytes # (Auto) (test code = 22926-6) 2.6 1.0-3.2 [facility] CenterBlood monocytes automated count (number/volume)2020-03-20 07:29:00* Test Item Value Reference Range Interpretation Comments Monocytes # (Auto) (test code = 742-7) 0.6 0.2-0.8 [facility] CenterAutomated blood eosinophil count 2020-03-20 07:29:00* Test Item Value Reference Range Interpretation Comments Eosinophils # (Auto) (test code = 711-2) 0.1 0.0-0.4 [facility] CenterAutomated blood basophil count (count/volume)2020-03-20 07:29:00* Test Item Value Reference Range Interpretation Comments Basophils # (Auto) (test code = 704-7) 0.1 0.0-0.1 [facility] CenterFluoroscopic procedure less than one hour geqfxlai9725-63-90 07:29:00* Test Item Value Reference Range Interpretation Comments Absolute Immature Granulocyte (auto (kym t code = Absolute Immature Granulocyte (auto) 0.06 0-0.1 [facility] plasma sodium measurement (moles/volume)2020-03-20 07:29:00* Test Item Value Reference Range Interpretation Comments Sodium Level (test code = 2951-2) 139 136-145 [facility] Rockerum or plasma potassium measurement (moles/volume)2020-03-20 07:29:00* Test Item Value Reference Range Interpretation Comments Potassium Level (test code = 2823-3) 4.0 3.5-5.1 [facility] Rockerum or plasma chloride measurement (moles/volume)2020-03-20 07:29:00* Test Item Value Reference Range Interpretation Comments Chloride Level (test code = 2075-0) 108 98-107 [facility] Rockerum or plasma carbon dioxide, total measurement (moles/volume)2020-03-20 07:29:00* Test Item Value Reference Range Interpretation Comments Carbon Dioxide Level (test code = 2028-9) 23 22-29 [facility] Rockerum or plasma anion nwn9783-94-52 07:29:00* Test Item Value Reference Range Interpretation Comments Anion Gap (test code = 87692-3) 12.0 8-16 [facility] Rockerum or plasma urea nitrogen measurement (mass/volume)2020-03-20 07:29:00* Test Item Value Reference Range Interpretation Comments Blood Urea Nitrogen (test code = 3094-0) 22 7-26 [facility] Rockerum or plasma creatinine measurement (mass/volume)2020-03-20 07:29:00* Test Item Value Reference Range Interpretation Comments Creatinine (test code = 2160-0) 0.75 0.72-1.25 [facility] Rockerum or plasma urea nitrogen/creatinine mass hemwi3541-10-91 07:29:00* Test Item Value Reference Range Interpretation Comments BUN/Creatinine Ratio (test code = 3097-3) 29 6-25 [facility] CenterEstimated glomerular filtration rate (GFR) lyqgxireojxul8572-12-42 07:29:00* Test Item Value Reference Range Interpretation Comments Estimat Glomerular Filtration Rate (test code = 055477402) > 60 >60 Ranges were taken from the National Kidney Disease Education Program and the [facility] literature.Reference ranges:60 or greater: Dipobq10-34 ( for 3 consecutive months): Chronic kidney disease 15 or less: Kidney failureTexas Vista Medical CenterGlucose jlyfbmdamgp1438-22-69 07:29:00* Test Item Value Reference Range Interpretation Comments Glucose Level (test code = AQC0141) 96 74-118 [facility] Rockerum or plasma calcium measurement (mass/volume)2020-03-20 07:29:00* Test Item Value Reference Range Interpretation Comments Calcium Level (test code = 98977-5) 8.4 8.4-10.2 [facility] CenterPhosphorus tdbavgqaqbc3814-31-54 07:29:00 * Test Item Value Reference Range Interpretation Comments Phosphorus Level (test code = ZXE9099) 3.3 2.3-4.7 [facility] Rockerum or plasma magnesium measurement (mass/volume)2020-03-20 07:29:00* Test Item Value Reference Range Interpretation Comments Magnesium Level (test code = 37663-0) 2.0 1.3-2.1 [facility] Rockerum or plasma creatine kinase measurement (enzymatic activity/volume)2020-03-19 16:34:00* Test Item Value Reference Range Interpretation Comments Creatine Kinase (test code = 2157-6) 63 30-200 [facility] Rockerum or plasma creatine kinase MB measurement (mass/volume)2020-03-19 16:34:00* Test Item Value Reference Range Interpretation Comments Creatine Kinase MB (test code = 57301-7) 2.50 0-5.0 [facility] CenterTroponin I measurement by highly sensitive enzyme mvposewpnwy6895-16-13 16:34:00* Test Item Value Reference Range Interpretation Comments Troponin I (test code = 77121-8) 0.032 0-0.300 [facility] Rockerum or plasma total bilirubin measurement (mass/volume)2020-03-19 07:53:00* Test Item Value Reference Range Interpretation Comments Total Bilirubin (test code = 1975-2) 0.5 0.2-1.2 [facility] CenterFluoroscopic procedure less than one hour bdirwjtb4293-11-08 07:53:00* Test Item Value Reference Range Interpretation Comments Aspartate Amino Transf (AST/SGOT) (test code = Aspartate Amino Transf (AST/SGOT)) 28 5-34 [facility] Rockerum or plasma alanine aminotransferase measurement (enzymatic activity/volume)2020-03-19 07:53:00* Test Item Value Reference Range Interpretation Comments Alanine Aminotransferase (ALT/SGPT) (test code = 1742-6) 49 0-55 [facility] Rockerum or plasma protein measurement (mass/volume)2020-03-19 07:53:00* Test Item Value Reference Range Interpretation Comments Total Protein (test code = 2885-2) 7.2 6.5-8.1 [facility] Rockerum or plasma albumin measurement (mass/volume)2020-03-19 07:53:00* Test Item Value Reference Range Interpretation Comments Albumin (test code = 1751-7) 3.6 3.5-5.0 [facility] CenterPlasma globulin measurement (mass/volume) 2020-03-19 07:53:00* Test Item Value Reference Range Interpretation Comments Globulin (test code = 81869-2) 3.6 2.3-3.5 [facility] Rockerum or plasma albumin/globulin mass wlftb1547-80-12 07:53:00* Test Item Value Reference Range Interpretation Comments Albumin/Globulin Ratio (test code = 1759-0) 1.0 0.8-2.0 [facility] Rockerum or plasma alkaline phosphatase measurement (enzymatic activity/volume)2020-03-19 07:53:00* Test Item Value Reference Range Interpretation Comments Alkaline Phosphatase (test code = 6768-6) 55 40-150 [facility] CenterArterial blood pH vaunpykhgvq7839-45-40 15:48:00* Test Item Value Reference Range Interpretation Comments Arterial Blood pH (test code = 2744-1) 7.38 7.35-7.45 [facility] CenterpCO2 ZxfF5994-00-26 15:48:00* Test Item Value Reference Range Interpretation Comments Arterial Blood Partial Pressure CO2 (test code = 2019-8) 41 35-45 [facility] CenterArterial blood bicarbonate measurement (moles/volume)2020-03-18 15:48:00* Test Item Value Reference Range Interpretation Comments Arterial Blood HCO3 (test code = 1960-4) 24 22-26 [facility] CenterArterial blood base excess by calculation 2020-03-18 15:48:00* Test Item Value Reference Range Interpretation Comments Arterial Blood Base Excess (test code = 1925-7) -1.0 -2-3 [facility] CenterFluoroscopic procedure less than one hour apxfxtcg5335-47-86 15:48:00* Test Item Value Reference Range Interpretation Comments FiO2 (test code = FiO2) 32 ABG DRAWN ON RIGHT RADIAL. ON 3L NC @ 32%. DR. WELSH SEEN RESULTS.[facility] CenterCHEST SINGLE (PORTABLE)2020-03-18 14:27:00 [place] [address] Patient Name: BRIAN RODRIGUEZ MR #: [id number] : 1960 Age/Sex: 59/M Req #: [id number] Adm Physician: Ordered by: VASILIY WELSH DO Report #: [id number] Location: ER Room/Bed: Procedure: [id number] DX/CHEST SINGLE (PORTABLE) Exam Date: 03/18/20 Exam Time: 1335 REPORT STATUS: Signed EXAM: CHEST S STACEY (PORTABLE) DATE: 03/18/2020 1:35 PM INDICATION: Stress of breat h COMPARISON: 07/20/2019 FINDINGS: The trachea is midline. There ar e increased interstitial markings present bilaterally. There is no evidence fo r large focal consolidation, pneumothorax, or significant pleural effusion. The cardiac silhouette remains enlarged. No acute osseous abnormalities daniel ntified. IMPRESSION: Cardiomegaly and increased pulmonary interstit ial markings which are nonspecific but can be seen in the setting of edema. Signed by: Dr. Nilton Caldwell MD on 03/18/2020 2:28 PM Dictated By: NILTON CALDWELL MD 27 Transcr ibed By: ALISSON on 03/18/201427 COPY TO: VASILIY WELSH DO BNP Ouv-gXho7957-07-11 13:35:00* Test Item Value Reference Range Interpretation Comments B-Type Natriuretic Peptide (test code = 07883-7) 326.5 0-100 [facility] CenterThyroid Stimulating Hormone (TSH) 2019-07-21 07:53:00* Test Item Value Reference Range Interpretation Comments Thyroid Stimulating Hormone (TSH) (test code = 63859-3) 1.314 0.350-4.940 [facility] CenterTriglycerides Umzkb6485-95-80 07:31:00* Test Item Value Reference Range Interpretation Comments Triglycerides Level (test code = 2571-8) 79 0-149 [facility] CenterCholesterol Gmnxr8163-95-82 07:31:00* Test Item Value Reference Range Interpretation Comments Cholesterol Level (test code = 2093-3) 233 0-199 H Less than 200 mg/dL Low Lzym495 - 239 mg/dL Borderline Whaj085 m g/dl and greater High Risk [facility] CenterLDL Nbhdqpkfyzj2004-83-07 07:31:00* Test Item Value Reference Range Interpretation Comments LDL Cholesterol (test code = 2089-1) 152 60-130 H [facility] CenterHDL Ntrjlcrjfdw9891-53-81 07:31:00* Test Item Value Reference Range Interpretation Comments HDL Cholesterol (test code = 2085-9) 65 40-60 H [facility] CenterCholesterol/HDL Bjefr3731-91-39 07:31:00 * Test Item Value Reference Range Interpretation Comments Cholesterol/HDL Ratio (test code = 9830-1) 3.6 3.9-4.7 L [facility] Rockodium Ofwgj0026-12-57 07:09:00* Test Item Value Reference Range Interpretation Comments Sodium Level (test code = 2951-2) 137 136-145 [facility] CenterPotassium Yajbt6554-26-43 07:09:00* Test Item Value Reference Range Interpretation Comments Potassium Level (test code = 2823-3) 3.6 3.5-5.1 [facility] CenterChloride Bbhcj7111-06-76 07:09:00* Test Item Value Reference Range Interpretation Comments Chloride Level (test code = 2075-0) 102 98-107 [facility] CenterCarbon Dioxide Kmbui1166-61-98 07:09:00* Test Item Value Reference Range Interpretation Comments Carbon Dioxide Level (test code = 2028-9) 26 22-29 [facility] CenterAnion Muf3329-56-15 07:09:00* Test Item Value Reference Range Interpretation Comments Anion Gap (test code = 94386-2) 12.6 8-16 [facility] CenterBlood Urea Zqvlyzvf3672-90-05 07:09:00* Test Item Value Reference Range Interpretation Comments Blood Urea Nitrogen (test code = 3094-0) 27 7-26 H [facility] CenterCreatinine2019-09-13 07:09:00* Test Item Value Reference Range Interpretation Comments Creatinine (test code = 2160-0) 1.00 0.72-1.25 [facility] CenterBUN/Creatinine Udpwq7518-61-95 07:09:00* Test Item Value Reference Range Interpretation Comments BUN/Creatinine Ratio (test code = 3097-3) 27 6-25 H [facility] CenterEstimat Glomerular Filtration Rate 2019-07-21 07:09:00* Test Item Value Reference Range Interpretation Comments Estimat Glomerular Filtration Rate (test code = 792928633) > 60 >60 Ranges were taken from the National Kidney Disease Education Program and the [facility] literature.Reference ranges:60 or greater: Akfjwl18-11 ( for 3 consecutive months): Chronic kidney disease 15 or less: Kidney failureTexas Vista Medical CenterGlucose Prsru0590-04-21 07:09:00* Test Item Value Reference Range Interpretation Comments Glucose Level (test code = QEP5635) 148 74-118 H [facility] CenterCalcium Jselt2785-03-72 07:09:00* Test Item Value Reference Range Interpretation Comments Calcium Level (test code = 43979-4) 9.3 8.4-10.2 [facility] CenterTotal Aburtkkog1991-03-62 07:09:00* Test Item Value Reference Range Interpretation Comments Total Bilirubin (test code = 1975-2) 0.8 0.2-1.2 [facility] CenterAspartate Amino Transf (AST/SGOT) 2019-07-21 07:09:00* Test Item Value Reference Range Interpretation Comments Aspartate Amino Transf (AST/SGOT) (test code = Aspartate Amino Transf (AST/SGOT)) 25 5-34 [facility] CenterAlanine Aminotransferase (ALT/SGPT) 2019-07-21 07:09:00* Test Item Value Reference Range Interpretation Comments Alanine Aminotransferase (ALT/SGPT) (test code = 1742-6) 49 0-55 [facility] CenterTotal Wedoqbc4278-31-47 07:09:00* Test Item Value Reference Range Interpretation Comments Total Protein (test code = 2885-2) 6.9 6.5-8.1 [facility] CenterAlbumin2019-09-13 07:09:00* Test Item Value Reference Range Interpretation Comments Albumin (test code = 1751-7) 3.5 3.5-5.0 [facility] CenterGlobulin2019-09-13 07:09:00* Test Item Value Reference Range Interpretation Comments Globulin (test code = 38377-5) 3.4 2.3-3.5 [facility] CenterAlbumin/Globulin Jmema5445-58-54 07:09:00 * Test Item Value Reference Range Interpretation Comments Albumin/Globulin Ratio (test code = 1759-0) 1.0 0.8-2.0 [facility] CenterAlkaline Vlyqonviomd7983-19-22 07:09:00* Test Item Value Reference Range Interpretation Comments Alkaline Phosphatase (test code = 6768-6) 50 40-150 [facility] CenterWhite Blood Fiydc1274-70-34 06:40:00* Test Item Value Reference Range Interpretation Comments White Blood Count (test code = 6690-2) 12.23 4.8-10.8 H [facility] CenterRed Blood Ihcaf7617-96-60 06:40:00* Test Item Value Reference Range Interpretation Comments Red Blood Count (test code = 789-8) 4.48 4.3-5.7 [facility] CenterHemoglobin2019-09-13 06:40:00* Test Item Value Reference Range Interpretation Comments Hemoglobin (test code = 98174-2) 14.0 14.0-18.0 [facility] CenterHematocrit2019-09-13 06:40:00* Test Item Value Reference Range Interpretation Comments Hematocrit (test code = 4544-3) 42.1 38.2-49.6 [facility] CenterMean Corpuscular Npwyno8444-48-66 06:40:00* Test Item Value Reference Range Interpretation Comments Mean Corpuscular Volume (test code = 787-2) 94.0 81-99 [facility] CenterMean Corpuscular Mrlddpeaim6879-37-35 06:40:00* Test Item Value Reference Range Interpretation Comments Mean Corpuscular Hemoglobin (test code = 785-6) 31.3 28-32 [facility] CenterMean Corpuscular Hemoglobin Concent 2019-07-21 06:40:00* Test Item Value Reference Range Interpretation Comments Mean Corpuscular Hemoglobin Concent (test code = 786-4) 33.3 31-35 [facility] CenterRed Cell Distribution Cyijk5902-70-89 06:40:00* Test Item Value Reference Range Interpretation Comments Red Cell Distribution Width (test code = 75213-3) 12.5 11.7 -14.4 [facility] CenterPlatelet Nuzmb6126-93-71 06:40:00* Test Item Value Reference Range Interpretation Comments Platelet Count (test code = 777-3) 230 140-360 [facility] CenterNeutrophils (%) (Auto)2019-07-21 06:40:00 * Test Item Value Reference Range Interpretation Comments Neutrophils (%) (Auto) (test code = 82884-6) 67.4 38.7-80.0 [facility] CenterLymphocytes (%) (Auto)2019-07-21 06:40:00 * Test Item Value Reference Range Interpretation Comments Lymphocytes (%) (Auto) (test code = 736-9) 25.5 18.0-39.1 [facility] CenterMonocytes (%) (Auto)2019-07-21 06:40:00* Test Item Value Reference Range Interpretation Comments Monocytes (%) (Auto) (test code = 5905-5) 5.8 4.4-11.3 [facility] CenterEosinophils (%) (Auto)2019-07-21 06:40:00 * Test Item Value Reference Range Interpretation Comments Eosinophils (%) (Auto) (test code = 713-8) 0.3 0.0-6.0 [facility] CenterBasophils (%) (Auto)2019-07-21 06:40:00* Test Item Value Reference Range Interpretation Comments Basophils (%) (Auto) (test code = 706-2) 0.3 0.0-1.0 [facility] CenterIM GRANULOCYTES %2019-07-21 06:40:00* Test Item Value Reference Range Interpretation Comments IM GRANULOCYTES % (test code = IM GRANULOCYTES %) 0.7 0.0- 1.0 [facility] CenterNeutrophils # (Auto)2019-07-21 06:40:00* Test Item Value Reference Range Interpretation Comments Neutrophils # (Auto) (test code = 751-8) 8.2 2.1-6.9 H [facility] CenterLymphocytes # (Auto)2019-07-21 06:40:00* Test Item Value Reference Range Interpretation Comments Lymphocytes # (Auto) (test code = 30394-7) 3.1 1.0-3.2 [facility] CenterMonocytes # (Auto)2019-07-21 06:40:00* Test Item Value Reference Range Interpretation Comments Monocytes # (Auto) (test code = 742-7) 0.7 0.2-0.8 [facility] CenterEosinophils # (Auto)2019-07-21 06:40:00* Test Item Value Reference Range Interpretation Comments Eosinophils # (Auto) (test code = 711-2) 0.0 0.0-0.4 [facility] CenterBasophils # (Auto)2019-07-21 06:40:00* Test Item Value Reference Range Interpretation Comments Basophils # (Auto) (test code = 704-7) 0.0 0.0-0.1 [facility] (auto 2019-07-21 06:40:00* Test Item Value Reference Range Interpretation Comments Absolute Immature Granulocyte (auto (kym t code = Absolute Immature Granulocyte (auto) 0.08 0-0.1 [facility] plasma triglyceride measurement (mass/volume)2019-07-21 06:10:00* Test Item Value Reference Range Interpretation Comments Triglycerides Level (test code = 2571-8) 79 0-149 [facility] or plasma cholesterol measurement (mass/volume)2019-07-21 06:10:00* Test Item Value Reference Range Interpretation Comments Cholesterol Level (test code = 2093-3) 233 0-199 Less than 200 mg/dL Low Vbay611 - 239 mg/dL Borderline Wtca585 m g/dl and greater High Risk [facility] Rock[facility]um or plasma cholesterol in LDL measurement (mass/volume) 2019-07-21 06:10:00* Test Item Value Reference Range Interpretation Comments LDL Cholesterol (test code = 2089-1) 152 60-130 [facility] or plasma cholesterol in HDL measurement (mass/volume)2019-07-21 06:10:00* Test Item Value Reference Range Interpretation Comments HDL Cholesterol (test code = 2085-9) 65 40-60 [facility] or plasma total cholesterol/cholesterol in HDL mass [id number] 06:10:00* Test Item Value Reference Range Interpretation Comments Cholesterol/HDL Ratio (test code = 9830-1) 3.6 3.9-4.7 [facility] or plasma thyrotropin measurement by detection limit <= 0.005 miu/l (units/volume)2019-07-21 06:10:00* Test Item Value Reference Range Interpretation Comments Thyroid Stimulating Hormone (TSH) (test code = 95856-6) 1.314 0.350-4.940 [facility] Rock[facility] Occult [id number] 04:05:00* Test Item Value Reference Range Interpretation Comments Stool Occult Blood (test code = 2335-8) NEGATIVE NEGATIVE [facility] gastrointestinal hemoglobin [id number] 03:58:00* Test Item Value Reference Range Interpretation Comments Stool Occult Blood (test code = 2335-8) NEGATIVE NEGATIVE [facility]Creat[facility] Kinase [id number] 16:46:00* Test Item Value Reference Range Interpretation Comments Creatine Kinase MB (test code = 22928-0) 3.40 0-5.0 [facility] CenterTroponin [id number] 16:46:00* Test Item Value Reference Range Interpretation Comments Troponin I (test code = WHF2458) 0.071 0-0.300 [facility] CenterCreatine [id number] 16:38:00* Test Item Value Reference Range Interpretation Comments Creatine Kinase (test code = 2157-6) 119 30-200 [facility] Center[facility] Natriuretic [id number] 08:59:00* Test Item Value Reference Range Interpretation Comments B-Type Natriuretic Peptide (test code = 78903-0) 136.8 0-100 H [facility] CenterCHE[facility]INGLE ([facility])2019-07-20 01:00:00 [facility] [address] [place] [address] Patient Name: BRIAN RODRIGUEZ MR #: [id number] : 1960 Age/Sex: 59/M Req #: [id number] Adm Physician: Ordered by: KINDRA ESCOBAR MD Report #: [id number] Location: ER Room/Bed: Procedure: [id number] DX/CHEST SINGLE (PORTABLE) Exam Date: 07/20/19 Exam Time: 29 REPORT STATUS: Signed EXAMINATION: CHEST SINGLE (PORTABLE) INDICATION: Short of breath COMPARISON: Chest radiograph 05/15/2015 FINDINGS: AP view TUBES and LINES: None. LUNGS: Lungs are well inflated. Increased pulmon penny interstitial markings. Prominent central pulmonary vasculature. PLEUR A: No pleural effusion or pneumothorax. HEART AND MEDIASTINUM: Cardiac si ze is mildly enlarged. BONES AND SOFT TISSUES: No acute osseous lesion. Soft tissues are unremarkable. UPPER ABDOMEN: No free air under the diaph ragm. IMPRESSION: Mild cardiomegaly and mild pulmonary interstitial edema. Signed by: Leo Gomez DO on 07/20/2019 1:01 AM Dictate d By: LEO GOMEZ DO 0 COPY TO: KINDRA ESCOBAR MD Amylase [id number] 00:46:00* Test Item Value Reference Range Interpretation Comments Amylase Level (test code = 1798-8) 23 25-125 L [facility]ase2019-09-12 00:46:00* Test Item Value Reference Range Interpretation Comments Lipase (test code = 3040-3) [facility] CenterD-Dimer Quantitative (PE/DVT)2019-07-20 00:21:00* Test Item Value Reference Range Interpretation Comments D-Dimer Quantitative (PE/DVT) (test code = 80252-0) 0.45 0. 00-0.45 [facility] CenterFibrin D-dimer DDU measurement in platelet poor plasma (mass/volume)2019-07-19 23:50:00* Test Item Value Reference Range Interpretation Comments D-Dimer Quantitative (PE/DVT) (test code = 80730-5) 0.45 0. 00-0.45 [facility] or plasma amylase measurement (enzymatic activity/volume)2019-07-19 23:50:00* Test Item Value Reference Range Interpretation Comments Amylase Level (test code = 1798-8) 23 25-125 [facility] or plasma lipase measurement (enzymatic activity/volume)2019-07-19 23:50:00* Test Item Value Reference Range Interpretation Comments Lipase (test code = 3040-3) [facility]
[2020-04-11 02:41] LABS: BASOPHILS # (AUTO) 0.1 (0.0-0.1); BASOPHILS % 0.8 % (0.0-1.0); EOSINOPHILS # (AUTO) 0.3 (0.0-0.4); EOSINOPHILS % 3.2 % (0.0-6.0); HEMATOCRIT 42.8 % (38.2-49.6); HEMOGLOBIN 14.2 g/dL (14.0-18.0); LYMPHOCYTES # (AUTO) 3.5 (1.0-3.2); LYMPHOCYTES % 42.4 % (18.0-39.1); MEAN CORPUSCULAR HEMOGLOBIN 31.1 pg (28-32); MEAN CORPUSCULAR HGB CONC 33.2 g/dL (31-35); MEAN CORPUSCULAR VOLUME 93.9 fL (81-99); MONOCYTES # (AUTO) 0.7 (0.2-0.8); MONOCYTES % 8.7 % (4.4-11.3); NEUTROPHILS # (AUTO) 3.7 (2.1-6.9); NEUTROPHILS % 44.4 % (38.7-80.0); PLATELET COUNT 240 x10e3/uL (140-360); RED BLOOD COUNT 4.56 x10e6/uL (4.3-5.7); RED CELL DISTRIBUTION WIDTH 12.6 % (11.7-14.4)
--- NOTE | 2020-04-11 02:43 | Emergency Department Note ---
History of Present Illnes History of Present Illness Chief Complaint: Respiratory History of Present Illness This is a 59 year old male presents by way of EMS complaining of shor tness of breath. Patient states that shortness of breath has been intermittent since his last admission on 03/20/2020. On 03/18/2020 patient was admitted for same symptoms and workup including cardiac and airframe technical officer Dr. Mederos saw patient as well. At conclusion of the workup the final diagnosis was dyspnea of uncertain etiology. Patient describes shortness of breath occurs sometimes when he lays flat but mostly when he is falling asleep he suddenly wakes up feeling short of breath and he should take a deep breath. Patient denies fever cough chills. . 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 Any updates have been documented here. Past Medical History Recent Fever: No Clinical Suspicion of Infectio: No New/Unexplained Change in Ment: No Past Medical History: Hypertension, CHF, Asthma, CAD Other Medical History: CHRONIC L SHOULDER PAIN DEPRESSION/ANXIETY Past Surgical History: PCI Social History Smoking Cessation: Never Smoker Counseling Performed: Yes Alcohol Use: Occasional Family History Family history of heart diseas: No Other Last Tetanus: 2014 Review of Systems Review of Systems Constitutional: no symptoms EENTM: no symptoms Cardiovascular: no symptoms Respiratory: as per HPI Gastrointestinal: no symptoms Genitourinary: no symptoms Musculoskeletal: no symptoms Neurological: no symptoms Psychological: no symptoms Endocrine: no symptoms Hematological/Lymphatic: no symptoms Review of other systems All other systems reviewed and negative. Physical Exam Related Data Allergies: Coded Allergies: No Known Allergies (Unverified , 05/13/15) Triage Vital Signs Vital Signs Date Time Temp Pulse Resp B/P (MAP) Pulse Ox O2 Delivery O2 Flow Rate FiO2 04/11/20 02:29 98.7 88 22 122/99 98 Vital signs reviewed: Yes Physical Exam CONSTITUTIONAL Constitutional: well-developed, well-nourished HENT HENT: normocephalic, atraumatic, oropharynx clear/moist, nose normal HENT L/R: left ext ear normal, right ext ear normal EYES Eyes: PERRL, conjunctivae normal NECK Neck: ROM normal PULMONARY Pulmonary: effort normal, breath sounds normal CARDIOVASCULAR Cardiovascular: regular rhythm, heart sounds normal, capillary refill normal, normal rate GASTROINTESTINAL Abdominal: soft, nontender, bowel sounds normal GENITOURINARY Genitourinary: exam deferred SKIN Skin: warm, dry MUSCULOSKELETAL Musculoskeletal: ROM normal NEUROLOGICAL Neurological: alert, oriented x 3, no gross motor or sensory deficits PSYCHOLOGICAL Psychological: mood/affect normal, judgement normal Results Laboratory Laboratory Laboratory Tests Test 04/11/20 02:24 White Blood Count 8.32 x10e3/uL (4.8-10.8) Red Blood Count 4.56 x10e6/uL (4.3-5.7) Hemoglobin 14.2 g/dL (14.0-18.0) Hematocrit 42.8 % (38.2-49.6) Mean Corpuscular Volume 93.9 fL (81-99) Mean Corpuscular Hemoglobin 31.1 pg (28-32) Mean Corpuscular Hemoglobin Concent 33.2 g/dL (31-35) Red Cell Distribution Width 12.6 % (11.7-14.4) Platelet Count 240 x10e3/uL (140-360) Neutrophils (%) (Auto) 44.4 % (38.7-80.0) Lymphocytes (%) (Auto) 42.4 % (18.0-39.1) Monocytes (%) (Auto) 8.7 % (4.4-11.3) Eosinophils (%) (Auto) 3.2 % (0.0-6.0) Basophils (%) (Auto) 0.8 % (0.0-1.0) Neutrophils # (Auto) 3.7 (2.1-6.9) Lymphocytes # (Auto) 3.5 (1.0-3.2) Monocytes # (Auto) 0.7 (0.2-0.8) Eosinophils # (Auto) 0.3 (0.0-0.4) Basophils # (Auto) 0.1 (0.0-0.1) Absolute Immature Granulocyte (auto 0.04 x10e3/uL (0-0.1) Sodium Level 141 mmol/L (136-145) Potassium Level 4.5 mmol/L (3.5-5.1) Chloride Level 102 mmol/L (98-107) Carbon Dioxide Level 27 mmol/L (22-29) Anion Gap 16.5 mmol/L (8-16) Blood Urea Nitrogen 20 mg/dL (7-26) Creatinine 0.94 mg/dL (0.72-1.25) Estimat Glomerular Filtration Rate > 60 ML/MIN (60-) BUN/Creatinine Ratio 21 (6-25) Glucose Level 109 mg/dL (74-118) Calcium Level 9.5 mg/dL (8.4-10.2) Total Bilirubin 0.3 mg/dL (0.2-1.2) Aspartate Amino Transf (AST/SGOT) 42 IU/L (5-34) Alanine Aminotransferase (ALT/SGPT) 39 IU/L (0-55) Alkaline Phosphatase 57 IU/L (40-150) Creatine Kinase 191 IU/L (30-200) Creatine Kinase MB 3.60 ng/mL (0-5.0) Troponin I 0.025 ng/mL (0-0.300) B-Type Natriuretic Peptide 160.9 pg/mL (0-100) Total Protein 7.7 g/dL (6.5-8.1) Albumin 4.2 g/dL (3.5-5.0) Globulin 3.5 g/dL (2.3-3.5) Albumin/Globulin Ratio 1.2 (0.8-2.0) Lab results reviewed: Yes Imaging Imaging results reviewed: Yes Impressions Patient Name: BRIAN RODRIGUEZ MR #: [id number] : 1960 Age/Sex: 59/M Req #: [id number] Adm Physician: Ordered by: KINDRA ESCOBAR MD Report #: [id number] Location: ER Room/Bed: Procedure: [id number] DX/CHEST SINGLE (PORTABLE) Exam Date: Exam Time: REPORT STATUS: Signed EXAMINATION: CHEST SINGLE (PORTABLE) COMPARISON: Chest x-ray 03/18/2020 INDICATION: Shortness of breath ^SOB ^Y DISCUSSION: Frontal view of the chest obtained at 0218 hours. HEART AND MEDIASTINUM: Stable cardiomegaly. Stable aortic tortuosity. LINES: None. LUNGS/PLEURA: The lungs are well inflated and clear. Pulmonary veins are prominent and stable suggestive of pulmonary venous hypertension. No pneumonia or pulmonary edema. No pleural effusion or pneumothorax. BONES AND SOFT TISSUES: No focal osseous lesion. Multiple rounded calcifications in the right axilla are stable. IMPRESSION: Stable cardiomegaly without CHF. No acute pulmonary process. Signed by: Dr. Srinivasan Hendricks MD on 04/11/2020 3:13 AM Dictated By: SRINIVASAN HENDRICKS MD 2 Transcribed By: ALISSON on 04/11/20312 COPY TO: KINDRA ESCOBAR MD~ Procedures 12 Lead ECG Interpretation Bank President: Interpreted by ED physician Date: Apr 11, 2020 Time: 02:21 Prior STEEL FLOOR PAN PLACING SUPERVISOR tracings: reviewed (LBBB PRESENT ON PREVIOUS EKG) Rhythm: sinus rhythm Rate: normal BPM: 85 QRS axis: normal Conduction: left bundle branch block ST segments normal: No (SECONDARY TO LBBB) T waves normal: Yes (NO SECONDARY TO LBBB) Other findings: no other findings Clinical Impression: abnormal ECG Critical Care Time Subsequent provider I assumed direction of critical care for this patient from another provider of my specialty. Assessment & Plan Assessment & Plan Final Impression: (1) DYSPNEA, UNSPECIFIED Assessment & Plan Patient with history of CHF presents for intermittent shortness of breath but mostly occurs when he lies flat or when he is falling asleep. CBC, CMP, EKG, chest x-ray, cardiac enzymes, BNP ordered to eval for myocardial infarction, pulmonary edema, pneumonia, electrolyte abnormality. Patient's workup is negative for pulmonary edema and pneumonia no myocardial infarction. Based on history patient appears to be describing sleep apnea. Patient will be discharged home to follow up with PCP and to arrange a sleep study. Depart Disposition: HOME, SELF-CARE Last Vital Signs Date Time Temp Pulse Resp B/P (MAP) Pulse Ox O2 Delivery O2 Flow Rate FiO2 04/11/20 02:29 98.7 88 22 122/99 98 Home Meds Active Scripts Aspirin (ASPIRIN EC) 81 Mg Tablet.dr, 81 MG PO DAILY for 60 Days, #60 TAB 0 Re fills Prov:DUONG OVERTON NP 03/20/20 Simvastatin (SIMVASTATIN) 40 Mg Tablet, 20 MG PO 2100 for 60 Days, #60 TAB 0 Refills Prov:DUONG OVERTON NP 03/20/20 Carvedilol (COREG) 12.5 Mg Tab, 6.25 MG PO BID for 60 Days, #120 TAB 0 Refills Prov:DUONG OVERTON NP 03/20/20 Losartan Potassium (LOSARTAN POTASSIUM) 25 Mg Tablet, 25 MG PO BID for 60 Days, #120 TAB 0 Refills Prov:DUONG OVERTON NP 03/20/20 Furosemide (LASIX) 40 Mg Tablet, 40 MG PO DAILY for 60 Days, #60 TAB 0 Refills Prov:DUONG OVERTON NP 03/20/20 KINDRA ESCOBAR MD Apr 11, 2020 02:43
[2020-04-11 02:58] LABS: ALANINE AMINOTRANSFERASE 39 IU/L (0-55); ALBUMIN 4.2 g/dL (3.5-5.0); ALBUMIN/GLOBULIN RATIO 1.2 (0.8-2.0); ALKALINE PHOSPHATASE 57 IU/L (40-150); ANION GAP 16.5 mmol/L (8-16); BLOOD UREA NITROGEN 20 mg/dL (7-26); BUN/CREATININE RATIO 21 (6-25); CALCIUM 9.5 mg/dL (8.4-10.2); CARBON DIOXIDE 27 mmol/L (22-29); CHLORIDE 102 mmol/L (98-107); CREATINE KINASE 191 IU/L (30-200); CREATININE, SERUM 0.94 mg/dL (0.72-1.25); EST GLOMERULAR FILTRATION RATE > 60 ML/MIN (60-); GLUCOSE 109 mg/dL (74-118); POTASSIUM 4.5 mmol/L (3.5-5.1); SODIUM 141 mmol/L (136-145)
--- NOTE | 2020-04-11 03:17 | Diagnostic Imaging Report ---
EXAMINATION: CHEST SINGLE (PORTABLE) COMPARISON: Chest x-ray 03/18/2020 INDICATION: Shortness of breath ^SOB ^Y DISCUSSION: Frontal view of the chest obtained at 0218 hours. HEART AND MEDIASTINUM: Stable cardiomegaly. Stable aortic tortuosity. LINES: None. LUNGS/PLEURA: The lungs are well inflated and clear. Pulmonary veins are prominent and stable suggestive of pulmonary venous hypertension. No pneumonia or pulmonary edema. No pleural effusion or pneumothorax. BONES AND SOFT TISSUES: No focal osseous lesion. Multiple rounded calcifications in the right axilla are stable. IMPRESSION: Stable cardiomegaly without CHF. No acute pulmonary process. Signed by: Dr. Marcos Hendricks MD on 04/11/2020 3:13 AM
[2020-04-11 04:53] VITALS: BP 125/82
== END 2020-04-11 05:34 | disposition home or self-care (01) ==
LOC: ER 02:08
DX: R06.00 Dyspnea, unspecified (principal); I10 Essential (primary) hypertension; I51.7 Cardiomegaly; I25.10 Atherosclerotic heart disease of native coronary artery without angina pectoris; I50.9 Heart failure, unspecified; J45.909 Unspecified asthma, uncomplicated
CPT/HCPCS: 36415; 71045; 80053; 82550; 82553; 83880; 84484; 85025; 93005; 99284

== ENCOUNTER 2020-05-26 23:33 | Observation (INO) | payer OTHER, SELFPAY ==
[~2020-05-26] VITALS: Ht 177.8 cm; Wt 89.4 kg
[2020-05-26 23:59] LABS: BASOPHILS # (AUTO) 0.1 (0.0-0.1); BASOPHILS % 0.8 % (0.0-1.0); EOSINOPHILS # (AUTO) 0.3 (0.0-0.4); EOSINOPHILS % 3.4 % (0.0-6.0); HEMATOCRIT 36.8 % (38.2-49.6); HEMOGLOBIN 12.4 g/dL (14.0-18.0); LYMPHOCYTES # (AUTO) 3.4 (1.0-3.2); LYMPHOCYTES % 45.1 % (18.0-39.1); MEAN CORPUSCULAR HEMOGLOBIN 30.3 pg (28-32); MEAN CORPUSCULAR HGB CONC 33.7 g/dL (31-35); MONOCYTES # (AUTO) 0.5 (0.2-0.8); NEUTROPHILS # (AUTO) 3.3 (2.1-6.9); NEUTROPHILS % 43.3 % (38.7-80.0); PLATELET COUNT 206 x10e3/uL (140-360); RED BLOOD COUNT 4.09 x10e6/uL (4.3-5.7)
[2020-05-27] VITALS (7 sets, daily range): BP systolic 107–140; BP diastolic 58–94
--- NOTE | 2020-05-27 00:02 | Emergency Department Note ---
History of Present Illnes History of Present Illness Chief Complaint: Chest Pain History of Present Illness This is a 59 year old male PRESENTS TO THE ER VIA EMS FROM HOME C/P MIDSTERNAL CP AND SOB ONSET THIS AM WITH WORSENING SYMPTOMS THIS EVENING; PT STATES IT IS DIFFICULT TO TAKE A DEEP BREATH; PT RECEIVED X3 NITRO SPRAY AND 325MG ASA BY EMS CHUTE FEEDER; PT REPORTS SLIGHT CHEST PRESSURE AT THIS TIME; PT REPORTS SMOKING CAN NABIS DAILY; RESP EVEN/UNLABORED; NAD NOTED; . 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, Finishing Area Operator/EMS Arrival Mode: [place] [facility] Onset (how long ago): hour(s) (12) Location: CHEST Quality: PRESSURE, TIGHTNESS, SOB Radiation: Reports non-radiation Severity: severe Onset quality: gradual Duration (how long): hour(s) (12) Timing of current episode: constant Progression: worsening Context: Denies recent illness, Denies recent surgery, Denies recent travel Relieving factors: none Exacerbating factors: none Associated symptoms: Reports denies other symptoms Treatments prior to arrival: other (NTG x3 AND ASPIRIN 325 MG PO BY EMS) Past Medical/Family History Physician Review I have reviewed the patient's past medical and family history. Any updates have been documented here. Past Medical History Recent Fever: No Clinical Suspicion of Infectio: No New/Unexplained Change in Ment: No Past Medical History: Hypertension, CHF, Asthma, CAD, Anxiety, Depression Other Medical History: CHRONIC L SHOULDER PAIN Past Surgical History: PCI Social History Smoking Cessation: Former smoker Alcohol Use: Social Any Illegal Drug Use: Yes (MARIJUANA DAILY) Physically hurt or threatened: No Family History Family history of heart diseas: No Other family history HTN, CAD Other Last Tetanus: 2014 Review of Systems Review of Systems Constitutional: Reports no symptoms EENTM: Reports no symptoms Cardiovascular: Reports as per HPI Respiratory: Reports as per HPI Gastrointestinal: Reports no symptoms Genitourinary: Reports no symptoms Musculoskeletal: Reports no symptoms Integumentary: Reports no symptoms Neurological: Reports no symptoms Psychological: Reports no symptoms Endocrine: Reports no symptoms Hematological/Lymphatic: Reports no symptoms Physical Exam Related Data Allergies: Coded Allergies: No Known Allergies (Unverified , 05/13/15) Triage Vital Signs Vital Signs Date Time Temp Pulse Resp B/P (MAP) Pulse Ox O2 Delivery O2 Flow Rate FiO2 05/26/20 23:33 98.4 78 20 117/74 95 Room Air Vital signs reviewed: Yes Physical Exam CONSTITUTIONAL Constitutional: Present well-developed, Present well-nourished HENT HENT: Present normocephalic, Present atraumatic, Present oropharynx clear/moist, Present nose normal HENT L/R: Present left ext ear normal, Present right ext ear normal EYES Eyes: Reports PERRL, Reports conjunctivae normal NECK Neck: Present ROM normal PULMONARY Pulmonary: Present effort normal, Present breath sounds normal CARDIOVASCULAR Cardiovascular: Present regular rhythm, Present heart sounds normal, Present capillary refill normal, Present normal rate GASTROINTESTINAL Abdominal: Present soft, Present nontender, Present bowel sounds normal GENITOURINARY Genitourinary: Present exam deferred SKIN Skin: Present warm, Present dry MUSCULOSKELETAL Musculoskeletal: Present ROM normal NEUROLOGICAL Neurological: Present alert, Present oriented x 3, Present no gross motor or sensory deficits PSYCHOLOGICAL Psychological: Present mood/affect normal, Present judgement normal Results Laboratory Laboratory Laboratory Tests Test 05/26/20 23:46 White Blood Count 7.61 x10e3/uL (4.8-10.8) Red Blood Count 4.09 x10e6/uL (4.3-5.7) Hemoglobin 12.4 g/dL (14.0-18.0) Hematocrit 36.8 % (38.2-49.6) Mean Corpuscular Volume 90.0 fL (81-99) Mean Corpuscular Hemoglobin 30.3 pg (28-32) Mean Corpuscular Hemoglobin Concent 33.7 g/dL (31-35) Red Cell Distribution Width 12.0 % (11.7-14.4) Platelet Count 206 x10e3/uL (140-360) Neutrophils (%) (Auto) 43.3 % (38.7-80.0) Lymphocytes (%) (Auto) 45.1 % (18.0-39.1) Monocytes (%) (Auto) 7.0 % (4.4-11.3) Eosinophils (%) (Auto) 3.4 % (0.0-6.0) Basophils (%) (Auto) 0.8 % (0.0-1.0) Neutrophils # (Auto) 3.3 (2.1-6.9) Lymphocytes # (Auto) 3.4 (1.0-3.2) Monocytes # (Auto) 0.5 (0.2-0.8) Eosinophils # (Auto) 0.3 (0.0-0.4) Basophils # (Auto) 0.1 (0.0-0.1) Absolute Immature Granulocyte (auto 0.03 x10e3/uL (0-0.1) Prothrombin Time 12.6 seconds (11.9-14.5) Prothromb Time International Ratio 0.89 Activated Partial Thromboplast Time 28.1 seconds (23.8-35.5) Sodium Level 138 mmol/L (136-145) Potassium Level 3.6 mmol/L (3.5-5.1) Chloride Level 106 mmol/L (98-107) Carbon Dioxide Level 21 mmol/L (22-29) Anion Gap 14.6 mmol/L (8-16) Blood Urea Nitrogen 19 mg/dL (7-26) Creatinine 0.83 mg/dL (0.72-1.25) Estimat Glomerular Filtration Rate > 60 ML/MIN (60-) BUN/Creatinine Ratio 23 (6-25) Glucose Level 119 mg/dL (74-118) Calcium Level 8.8 mg/dL (8.4-10.2) Total Bilirubin 0.3 mg/dL (0.2-1.2) Aspartate Amino Transf (AST/SGOT) 18 IU/L (5-34) Alanine Aminotransferase (ALT/SGPT) 19 IU/L (0-55) Alkaline Phosphatase 46 IU/L (40-150) B-Type Natriuretic Peptide 92.8 pg/mL (0-100) Total Protein 7.3 g/dL (6.5-8.1) Albumin 3.9 g/dL (3.5-5.0) Globulin 3.4 g/dL (2.3-3.5) Albumin/Globulin Ratio 1.1 (0.8-2.0) Laboratory Tests Test 05/26/20 23:46 Lab results reviewed: Yes Imaging Imaging results reviewed: Yes Impressions Procedure: [id number] DX/CHEST SINGLE (PORTABLE) Exam Date: 05/26/20 Exam Time: 2358 REPORT STATUS: Signed Examination: Single AP view of the chest. COMPARISON: AP chest 04/11/2020 INDICATION: Mid chest pain, shortness of breath IMPRESSION: 1. Lines and Tubes: None 2. Lungs are well inflated and grossly clear. No consolidation or effusion. 3. Cardiomediastinal silhouette is normal. Pulmonary vasculature is normal. 4. No acute bony abnormalities. Signed by: Dr. Airam Penny M.D. on 05/27/2020 12:58 AM Dictated By: AIRAM PENNY MD 0058 Procedures 12 Lead ECG Interpretation ECG Interpretation : ECG: ECG 1 Nurse Assessor: Interpreted by ED physician Date: May 26, 2020 Time: 23:43 Prior ECG tracings: reviewed Rhythm: sinus rhythm Rate: normal BPM: 83 QRS axis: indeterminate Conduction: left bundle branch block (PRESENT ON PREVIOUS EKG'S) ST segments normal: No T waves normal: No Clinical Impression: abnormal ECG Additional Comments LEFT BUNDLE BRANCH BLOCK Assessment & Plan Medical Decision Making [facility] PT WITH H/O CAD AND CHF WITH CHEST PAIN AND SOB SINCE THIS MORNING CBC, CMP, EKG, BNP, CARDIAC ENZYMES, CXR ORDERED TO EVAL FOR MYOCARDIAL INFARCTION, CHF, PNEUMONIA, ELECTROLYTE ABNORMALITY, I SPOKE WITH DR DECKER, PLACE IN OBSERVATION Reassessment Reassessment time: 01:07 Reassessment PT STILL CHEST PAIN FREE AT THIS TIME, NO DISTRESS Assessment & Plan Final Impression: (1) Chest pain Depart Disposition: ADMITTED Last Vital Signs Date Time Temp Pulse Resp B/P (MAP) Pulse Ox O2 Delivery O2 Flow Rate FiO2 05/26/20 23:33 98.4 78 20 117/74 95 Room Air Home Meds Active Scripts Aspirin (ASPIRIN EC) 81 Mg Tablet.dr 81 MG PO DAILY for 60 Days, #60 TAB 0 Refills Prov:DUONG OVERTON NP 03/20/20 Simvastatin (SIMVASTATIN) 40 Mg Tablet, 20 MG PO 2100 for 60 Days, #60 TAB 0 Refills Prov:DUONG OVERTON NP 03/20/20 Carvedilol (COREG) 12.5 Mg Tab, 6.25 MG PO BID for 60 Days, #120 TAB 0 Refills Prov:DUONG OVERTON NP 03/20/20 Losartan Potassium (LOSARTAN POTASSIUM) 25 Mg Tablet, 25 MG PO BID for 60 Days, #120 TAB 0 Refills Prov:DUONG OVERTON NP 03/20/20 Furosemide (LASIX) 40 Mg Tablet, 40 MG PO DAILY for 60 Days, #60 TAB 0 Refills Prov:DUONG OVERTON NP 03/20/20 KINDRA ESCOBAR MD May 27, 2020 00:02
[2020-05-27 00:11] LABS: INR 0.89; PROTHROMBIN TIME 12.6 seconds (11.9-14.5)
[2020-05-27 00:12] LABS: PARTIAL THROMBOPLASTIN TIME 28.1 seconds (23.8-35.5)
[2020-05-27 00:20] LABS: ALANINE AMINOTRANSFERASE 19 IU/L (0-55); ALBUMIN 3.9 g/dL (3.5-5.0); ALBUMIN/GLOBULIN RATIO 1.1 (0.8-2.0); ALKALINE PHOSPHATASE 46 IU/L (40-150); ANION GAP 14.6 mmol/L (8-16); BLOOD UREA NITROGEN 19 mg/dL (7-26); BUN/CREATININE RATIO 23 (6-25); CALCIUM 8.8 mg/dL (8.4-10.2); CARBON DIOXIDE 21 mmol/L (22-29); CHLORIDE 106 mmol/L (98-107); CREATININE, SERUM 0.83 mg/dL (0.72-1.25); EST GLOMERULAR FILTRATION RATE > 60 ML/MIN (60-); GLUCOSE 119 mg/dL (74-118); POTASSIUM 3.6 mmol/L (3.5-5.1); SODIUM 138 mmol/L (136-145)
--- NOTE | 2020-05-27 01:02 | Diagnostic Imaging Report ---
Examination: Single AP view of the chest. COMPARISON: AP chest 04/11/2020 INDICATION: Mid chest pain, shortness of breath IMPRESSION: 1. Lines and Tubes: None 2. Lungs are well inflated and grossly clear. No consolidation or effusion. 3. Cardiomediastinal silhouette is normal. Pulmonary vasculature is normal. 4. No acute bony abnormalities. Signed by: Dr. Mann Penny M.D. on 05/27/2020 12:58 AM
[2020-05-27] MEDS ORDERED: NITROGLYCERIN 0.4 MG SUBL SL PRN (01:15)
[2020-05-27] MEDS ORDERED: SODIUM CHLORIDE FLUSH 10 ML SYR INJ PRN (01:15)
[2020-05-27] MEDS ORDERED: ONDANSETRON HCL INJ 2MG/ML 2ML 2 MG/ML VIAL IV PRN (01:15)
[2020-05-27] MEDS ORDERED: DEXTROSE 50% SYRINGE 50 ML IV PRN (01:15)
[2020-05-27] MEDS ORDERED: PEPCID20 MG PO (06:50)
--- NOTE | 2020-05-27 07:24 | NUR ---
ASSUMED CARE. AAOX3. ACYANOTIC. RESTING IN BED. NO DISTRESS NOTED. CALL LIGHT IN REACH. SIDE RAILS UP X2. BED LOW AND LOCKED.
[2020-05-27] MEDS ORDERED: INSULIN REGULAR, HUMAN 100 UNIT/1 ML 3ML VIAL SQ SCH (07:30)
[2020-05-27 07:35] LABS: CREATINE KINASE MB 2.4 ng/mL (0-5.0)
[2020-05-27 07:53] LABS: CHOL/HDL RATIO 3.6 (3.9-4.7)
[2020-05-27] MEDS: LOSARTAN POTASSIUM 25 MG TAB PO SCH ×2 (08:02→16:28)
[2020-05-27] MEDS: CARVEDILOL 12.5 MG TAB PO SCH ×2 (08:02→16:28)
[2020-05-27] MEDS ORDERED: ASPIRIN 81 MG ENTERIC COATED PO SCH (09:00)
[2020-05-27] MEDS ORDERED: FUROSEMIDE 40 MG TAB PO SCH (09:00)
--- NOTE | 2020-05-27 09:24 | NUR ---
AAOX3. PATIENT WALKED TO DOOR AND ASKED FOR STAFF HELP. REPORTS CLAMMY FEELING. DIAPHORESIS NOTED. PATIENT ASSISTED BACK TO BED. VITALS: B/P 125/87 PULSE 79 RR 20 O2 SAT 100 PERCENT ON ROOM AIR, TEMP 97.4. BEDSIDE GLUCOSE CHECK 124. COLD COMPRESS PLACED ON PATIENT'S FOREHEAD. BED ALARM NOTED. INSTRUCTED PATIENT TO USE CALL LIGHT. VERBALIZED UNDERSTANDING.
--- NOTE | 2020-05-27 10:22 | NUR ---
REFUSED OFFERED SELF PAY PACKET, STATES WAITING ON LAWSUIT AND WILL SUBMIT ALL BILLS.
[2020-05-27 16:54] LABS: CREATINE KINASE MB 2.5 ng/mL (0-5.0)
--- NOTE | 2020-05-27 18:45 | NUR ---
walking rounds performed, received pt standing at desk, aaox3, rr even and non-labored, on room air. no s/sx of distress noted. left pt standing at desk talking to community development manager.
--- NOTE | 2020-05-27 19:40 | NUR ---
IV DISCONTINUED FROM (R) FA. CATHETER TIP INTACT. PRESSURE AND DRESSING APPLIED.
--- NOTE | 2020-05-27 19:51 | Discharge Summary ---
DISCHARGE DIAGNOSES: Chest pain, hypertension with chronic systolic congestive heart failure, anxiety, depression, coronary artery disease. DISCHARGE DIAGNOSES: Chest pain, hypertension with chronic systolic congestive heart failure, anxiety, depression, coronary artery disease, rule out myocardial infarction. HISTORY: Hypertension, chronic systolic CHF, CAD with PCI, anxiety, depression. SURGICAL HISTORY: Bilateral inguinal hernia repair. FAMILY HISTORY: The patient's mom has diabetes. SOCIAL HISTORY: The patient smokes weed almost daily and admits to occasional alcohol use. HOSPITAL COURSE: A 59-year-old male admits with complaints of intermittent substernal chest pressure that began after waking up out of his sleep gasping for air. The chest pressure began last night and does not radiate. He has associated diaphoresis and shortness of breath, but he denies dizziness, nausea or vomiting. On admission, troponins were negative x3. Chest x-ray was negative. Echo showed an EF of 30%. The patient was started on aspirin. Lipid panel was within normal limits. D-dimer was within normal limits. The patient said he does not want to see a diet therapist. He would rather follow up with one outpatient. As the troponins were negative and the BNP was within normal limits, the patient will be discharged home and follow up with primary care and Cardiology in 1 to 2 weeks. The patient understands instructions and agrees to plan. Vital signs stable. The patient is afebrile. The patient was given a new prescription for Pepcid prior to discharge and advised to follow up with an outpatient sleep study. Dictated by Geneva Redding NP MD KATHERINE Navarro/MODL /[id number]
--- NOTE | 2020-05-27 19:56 | NUR ---
PT DISCHARGED TO [facility]. PT IN STABLE CONDITION, AAOX3, RR EVEN AND NON-LABORED, ON ROOM AIR. NO S/SX OF DISTRESS NOTED.
[2020-05-27] MEDS ORDERED: SIMVASTATIN 20 MG TAB PO SCH (21:00)
== END 2020-05-27 19:56 | disposition home or self-care, planned readmission (81) ==
LOC: ER 23:50 → ERHOLD 05-27 01:12 → MED/SURG 05-27 02:23
PROVIDERS: ADMIT Internal Medicine; ATTEND Internal Medicine
DX: R07.89 Other chest pain (principal); I11.0 Hypertensive heart disease with heart failure; I50.22 Chronic systolic (congestive) heart failure; F41.9 Anxiety disorder, unspecified; F32.9 Major depressive disorder, single episode, unspecified; I25.10 Atherosclerotic heart disease of native coronary artery without angina pectoris; Z95.5 Presence of coronary angioplasty implant and graft; Z11.59 Encounter for screening for other viral diseases
CPT/HCPCS: 36415; 71045; 80053; 80061; 82550; 82553; 83880; 84484; 85025; 85379; 85610; 85730; 93005; 93306; 99284; G0378; U0002

== ENCOUNTER 2020-06-19 14:55 | Emergency (ER) | payer OTHER, SELFPAY ==
[~2020-06-19] VITALS: Ht 177.8 cm; Wt 89.4 kg
[~2020-06-19 14:55] MED LIST changes: +PEPCID20 MG PO
[2020-06-19] MEDS ORDERED: PANTOPRAZOLE 40 MG 10ML VIAL IV STA (15:10)
[2020-06-19] MEDS ORDERED: ONDANSETRON HCL INJ 2MG/ML 2ML 2 MG/ML VIAL IV STA (15:10)
[2020-06-19] MEDS ORDERED: HALOPERIDOL LACTATE 5 MG/ML VIAL IV ONE (15:15)
[2020-06-19] MEDS ORDERED: SODIUM CHLORIDE 0.9% 1000ML 1,000 ML IV ONE (15:15)
[2020-06-19] MEDS ORDERED: SODIUM CHLORIDE 0.9% 1000ML 1,000 ML ONE (15:18)
[2020-06-19 15:27] LABS: BASOPHILS % 0.4 % (0.0-1.0); EOSINOPHILS # (AUTO) 0.1 (0.0-0.4); EOSINOPHILS % 0.9 % (0.0-6.0); HEMATOCRIT 41.5 % (38.2-49.6); HEMOGLOBIN 14.1 g/dL (14.0-18.0); LYMPHOCYTES # (AUTO) 1.8 (1.0-3.2); LYMPHOCYTES % 17.3 % (18.0-39.1); MEAN CORPUSCULAR HEMOGLOBIN 30.4 pg (28-32); MEAN CORPUSCULAR VOLUME 89.4 fL (81-99); MONOCYTES # (AUTO) 0.8 (0.2-0.8); MONOCYTES % 7.9 % (4.4-11.3); NEUTROPHILS # (AUTO) 7.4 (2.1-6.9); NEUTROPHILS % 72.9 % (38.7-80.0); PLATELET COUNT 239 x10e3/uL (140-360); RED BLOOD COUNT 4.64 x10e6/uL (4.3-5.7)
[2020-06-19 15:37] LABS: INR 0.91; PROTHROMBIN TIME 12.7 seconds (11.9-14.5)
[2020-06-19 15:38] LABS: PARTIAL THROMBOPLASTIN TIME 27.1 seconds (23.8-35.5)
--- OUTSIDE RECORDS SUMMARY | 2020-06-19 15:41 | XMS REPORT | Continuity of Care Document ---
Author Author [facility] t Organization [facility] Address [address] [place] [phone] Phone Unavailable Care Team Providers Care Case Resource Manager Name Role Phone NONSTAFF PCP Unavailable Amanda ESCOBAR Attphys Unavailable Erika WELSH Attphys Unavailable Payers Payer Name Policy Type Policy Number Effective Date Expiration Date Erika eunice Joann NA [facility] Covid 19 Hrsa Uninsured [id number] [id number] Problems Condition Name Condition Details Condition Category Status Onset Date Resolution Date Last Treatment Date Treating Clinician Comments Source Cellulitis Cellulitis Problem Active 2015-05-13 00:00:00 [facility] Osteomyelitis Osteomyelitis Problem Active 2015-05-13 00:00:00 [facility] New onset of congestive heart failure New onset of congestiv e heart failure Problem Active [facility] Respiratory distress Respiratory distress Problem Active [facility] Chest pain Problem Active [facility] Allergies, Adverse Reactions, Alerts This patient has no known allergies or adverse reactions. Social History Social Habit Start Date Stop Date Quantity Comments Source Sex Assigned At 1960 00:00:00 1960 00:00:00 Male [facility] Medications Ordered Medication Name Filled Medication Name Start Date Stop Da te Current Medication? Ordering Clinician Indication Dosage Frequency Signature (SIG) Comments Components Source Famotidine (Pepcid) 20 Mg TABLET Famotidine (Pepcid) 20 Mg T ABLE 2020-05-27 06:50:00 Yes 20 Before Breakfast [facility] Aspirin (Aspirin Ec) 81 Mg TABLET. Aspirin (Aspirin Ec) 81 Mg TABLET. 2020-03-20 17:32:00 Yes 81 Daily [facility] Carvedilol (Coreg) 12.5 Mg TAB Carvedilol (Coreg) 12.5 Mg TA B 2020-03-20 17:32:00 Yes 6.25 Twice A Day [facility] Furosemide (Lasix) 40 Mg TABLET Furosemide (Lasix) 40 Mg TAB LET 2020-03-20 17:32:00 Yes 40 Daily [facility] Losartan Potassium Losartan Potassium 2020-03-20 17:32:00 Yes 25 Twice A Day [facility] Simvastatin Simvastatin 2020-03-20 17:32:00 Yes 20 T mariaelena At 9:00PM [facility] Carvedilol (Coreg) 12.5 Mg TAB Carvedilol (Coreg) 12.5 Mg TAB 2020-03-20 00:00:00 No 6.25 Twice A Day [facility] Furosemide (Lasix) 40 Mg TABLET Furosemide (Lasix) 40 Mg TABLET 2020-03-20 00:00:00 No 40 Daily [facility] Losartan Potassium Losartan Potassium 2020-03-20 00:00:00 No 25 Twice A Day [facility] Vital Signs Vital Name Observation Time Observation Value Comments Source Body Temperature 2020-05-27 19:30:00 97.4 [degF] [facility] BMI (Body Mass Index) 2020-05-27 02:35:00 28.3 kg/m2 [facility] Weight 2020-05-26 23:33:00 197 [lb_av] [facility] Weight 2020-04-11 02:29:00 197 [lb_av] [facility] BMI (Body Mass Index) 2020-04-11 02:29:00 28.3 kg/m2 [facility] Body Temperature 2020-03-20 16:00:00 97.4 [degF] [facility] BMI (Body Mass Index) 2020-03-18 18:00:00 28.3 kg/m2 [facility] Weight 2020-03-18 13:03:00 197 [lb_av] [facility] Procedures This patient has no known procedures. Plan of Care Planned Activity Planned Date Details Comments Source Instructions How to Take Your Blood Pressure [facility] Instructions Chest Pain - Noncardiac [facility] Instructions How to Take Your Pulse [facility] Encounters Start Date/Time End Date/Time Encounter Type Ad[facility] Encounter ID Source 2020-05-27 01:12:00 2020-05-27 19:56:00 Discharged Inpatient (obs) 1 [facility] [id number] [facility] 2020-04-21 18:58:00 2020-04-21 18:58:00 Registered Emergency Room [id number] [facility] 2020-04-11 02:08:00 2020-04-11 05:34:00 Departed Emergency Room 1 ESCOBARKINDRA [facility] [id number] [facility] 2020-03-20 15:47:00 2020-03-20 18:50:00 Discharged Inpatient 1 VASILIY WELSH [facility] [id number] [facility] 2019-07-20 02:41:00 2019-07-21 13:45:00 Discharged Inpatient 1 ESCOBARKINDRA [facility] [id number] [facility] Results Test Description Test Time Test Comments Results Result Comments Source Serum or plasma creatine kinase measurement (enzymatic activity/volume) 2020-05-27 16:12:00 Test Item Creatine Kinase (test code = 2157-6) 123 30-200 [facility] creatine kinase MB measurement (mass/volume)2020-05-27 16:12:00* Test Item Value Reference Range Interpretation Comments Creatine Kinase MB (test code = 11047-6) 2.50 0-5.0 [facility]Troponin I measurement by highly sensitive enzyme qpbwjqbjwec4264-01-97 16:12:00* Test Item Value Reference Range Interpretation Comments Troponin I (test code = 58437-1) 0.022 0-0.300 [facility]ham[facility]ibr[facility] D-dimer DDU measurement in platelet poor plasma (mass/volume)2020-05-27 07:08:00* Test Item Value Reference Range Interpretation Comments D-Dimer Quantitative (PE/DVT) (test code = 46189-5) < 100 0- 400 The Triage D-Dimer Test has not been evaluated for use as sole evidence for the presence or absence of PE or DVT. As with all in vitro diagnostic tests, the te st results should be interpreted by the physician in conjunction with clinical f indings and other test results.Test results are reported in D-dimer units.[facility] or plasma triglyceride measurement (mass/volume)2020-05-27 07:08:00* Test Item Value Reference Range Interpretation Comments Triglycerides Level (test code = 2571-8) 87 0-149 [facility] or plasma cholesterol measurement (mass/volume)2020-05-27 07:08:00* Test Item Value Reference Range Interpretation Comments Cholesterol Level (test code = 2093-3) 148 0-199 Less than 200 mg/dL Low Esoy658 - 239 mg/dL Borderline Ooeb734 m g/dl and greater High Risk [facility] or plasma cholesterol in LDL measurement (mass/volume) 2020-05-27 07:08:00* Test Item Value Reference Range Interpretation Comments LDL Cholesterol (test code = 2089-1) 90 60-130 [facility] cholesterol in HDL measurement (mass/volume)2020-05-27 07:08:00* Test Item Value Reference Range Interpretation Comments HDL Cholesterol (test code = 2085-9) 41 40-60 [facility] plasma total cholesterol/cholesterol in HDL mass [id number] 07:08:00* Test Item Value Reference Range Interpretation Comments Cholesterol/HDL Ratio (test code = 9830-1) 3.6 3.9-4.7 [facility]2020-05-27 00:58:00 [place] [address] Patient Name: BRIAN RODRIGUEZ MR #: [id number] : 1960 Age/Sex: 59/M Req #: [id number] Adm Physician: Ordered by: KINDRA ESCOBAR MD Report #: [id number] Location: ER Room/Bed: Procedure: [id number] DX/CHEST SI NGLE (PORTABLE) Exam Date: 05/26/20 Exam Time: 2358 REPORT STATUS: Signed Examinatio n: Single AP view of the chest. COMPARISON: AP chest 04/11/2020 INDICATI ON: Mid chest pain, shortness of breath IMPRESSION: 1. Lines and Tubes: None 2. Lungs are well inflated and grossly clear. No consolidation o r effusion. 3. Cardiomediastinal silhouette is normal. Pulmonary vasculatur e is normal. 4. No acute bony abnormalities. Signed by: Dr. Mann lai M.D. on 05/27/2020 12:58 AM Dictated By: MANN FALCON MD Electro nically Signed By: MANN FALCON MD on 05/27/2057 Transcribed By: ALISSON ponce 05/27/2057 COPY TO: KINDRA ESCOBAR MD Blood leukocytes automated count (number/volume)2020-05-26 23:46:00* Test Item Value Reference Range Interpretation Comments White Blood Count (test code = 6690-2) 7.61 4.8-10.8 [facility] erythrocytes automated count (number/volume)2020-05-26 23:46:00* Test Item Value Reference Range Interpretation Comments Red Blood Count (test code = 789-8) 4.09 4.3-5.7 [facility]ham[facility] hemoglobin measurement (moles/volume)2020-05-26 23:46:00* Test Item Value Reference Range Interpretation Comments Hemoglobin (test code = 37886-0) 12.4 14.0-18.0 [facility]hamAutomated blood hematocrit (volume fraction)2020-05-26 23:46:00* Test Item Value Reference Range Interpretation Comments Hematocrit (test code = 4544-3) 36.8 38.2-49.6 [facility]hamAutomated erythrocyte mean corpuscular bxditq6553-02-55 23:46:00* Test Item Value Reference Range Interpretation Comments Mean Corpuscular Volume (test code = 787-2) 90.0 81-99 [facility]hamAutomated erythrocyte mean corpuscular hemoglobin (mass per erythrocyte)2020-05-26 23:46:00* Test Item Value Reference Range Interpretation Comments Mean Corpuscular Hemoglobin (test code = 785-6) 30.3 28-32 [facility]hamAutomated erythrocyte mean corpuscular hemoglobin concentration measurement (mass/volume)2020-05-26 23:46:00* Test Item Value Reference Range Interpretation Comments Mean Corpuscular Hemoglobin Concent (test code = 786-4) 33.7 31-35 [facility] BrenhamRDW YoyYn-Mkw8683-01-19 23:46:00* Test Item Value Reference Range Interpretation Comments Red Cell Distribution Width (test code = 68572-4) 12.0 11.7 -14.4 [facility]hamAutomated blood platelet count (count/volume)2020-05-26 23:46:00* Test Item Value Reference Range Interpretation Comments Platelet Count (test code = 777-3) 206 140-360 [facility]hamAutecu health medical centered blood segmented neutrophil count as percentage of total vcnitrsjzi2623-79-94 23:46:00* Test Item Value Reference Range Interpretation Comments Neutrophils (%) (Auto) (test code = 26704-5) 43.3 38.7-80.0 [facility]hamAutomated blood lymphocyte count as percentage ot total fqhkypmnes4154-32-36 23:46:00* Test Item Value Reference Range Interpretation Comments Lymphocytes (%) (Auto) (test code = 736-9) 45.1 18.0-39.1 [facility]hamAutomated blood monocyte count as percentage of total ttbztsphvf6658-32-73 23:46:00* Test Item Value Reference Range Interpretation Comments Monocytes (%) (Auto) (test code = 5905-5) 7.0 4.4-11.3 [facility]hamAutomated blood eosinophil count as percentage of total paqmarnebb4122-39-47 23:46:00* Test Item Value Reference Range Interpretation Comments Eosinophils (%) (Auto) (test code = 713-8) 3.4 0.0-6.0 [facility]hamAutomated blood basophil count as percentage of total lovqqmepda5780-25-35 23:46:00* Test Item Value Reference Range Interpretation Comments Basophils (%) (Auto) (test code = 706-2) 0.8 0.0-1.0 [facility]hamFluoroscopic procedure less than one hour lunofwhh4742-62-05 23:46:00* Test Item Value Reference Range Interpretation Comments IM GRANULOCYTES % (test code = IM GRANULOCYTES %) 0.4 0.0- 1.0 [facility]hamAutomated blood neutrophil count 2020-05-26 23:46:00* Test Item Value Reference Range Interpretation Comments Neutrophils # (Auto) (test code = 751-8) 3.3 2.1-6.9 [facility]hamBlood lymphocytes count (number/volume) 2020-05-26 23:46:00* Test Item Value Reference Range Interpretation Comments Lymphocytes # (Auto) (test code = 07786-3) 3.4 1.0-3.2 [facility]hamBlood monocytes automated count (number/volume)2020-05-26 23:46:00* Test Item Value Reference Range Interpretation Comments Monocytes # (Auto) (test code = 742-7) 0.5 0.2-0.8 [facility]hamAutomated blood eosinophil count 2020-05-26 23:46:00* Test Item Value Reference Range Interpretation Comments Eosinophils # (Auto) (test code = 711-2) 0.3 0.0-0.4 [facility]hamAutomated blood basophil count (count/volume)2020-05-26 23:46:00* Test Item Value Reference Range Interpretation Comments Basophils # (Auto) (test code = 704-7) 0.1 0.0-0.1 [facility]hamFluoroscopic procedure less than one hour [id number] 23:46:00* Test Item Value Reference Range Interpretation Comments Absolute Immature Granulocyte (auto (kym t code = Absolute Immature Granulocyte (auto) 0.03 0-0.1 [facility]hamProthrombin time (PT) in platelet poor plasma by coagulation jevhr4920-07-45 23:46:00* Test Item Value Reference Range Interpretation Comments Prothrombin Time (test code = 5902-2) 12.6 11.9-14.5 [facility]hamINR in Platelet poor plasma by Coagulation eqecz6021-19-24 23:46:00* Test Item Value Reference Range Interpretation Comments Prothromb Time International Ratio (test code = 6301-6) 0.89 Oral Anticoagulant Therapy INR Values:1. Low Intensity Therapy 1.5 - 2.02 . Moderate Intensity Therapy 2.0 - 3.03. High Intensity Therapy(1) 2.5 - 3. 54. High Intensity Therapy(2) 3.0 - 4.05. Panic Value INR > 5.0 [facility]hamActivated partial thromboplastin time (aPTT) in platelet poor plasma by coagulation [id number] 23:46:00* Test Item Value Reference Range Interpretation Comments Activated Partial Thromboplast Time (test code = 28661-3) 28.1 23.8-35.5 [facility] or plasma sodium measurement (moles/volume)2020-05-26 23:46:00* Test Item Value Reference Range Interpretation Comments Sodium Level (test code = 2951-2) 138 136-145 [facility]berger[facility] or plasma potassium measurement (moles/volume)2020-05-26 23:46:00* Test Item Value Reference Range Interpretation Comments Potassium Level (test code = 2823-3) 3.6 3.5-5.1 [facility] or plasma chloride measurement (moles/volume)2020-05-26 23:46:00* Test Item Value Reference Range Interpretation Comments Chloride Level (test code = 2075-0) 106 98-107 [facility] or plasma carbon dioxide, total measurement (moles/volume)2020-05-26 23:46:00* Test Item Value Reference Range Interpretation Comments Carbon Dioxide Level (test code = 2028-9) 21 22-29 [facility] or plasma anion fim8364-06-38 23:46:00* Test Item Value Reference Range Interpretation Comments Anion Gap (test code = 41994-1) 14.6 8-16 [facility]um or plasma urea nitrogen measurement (mass/volume)2020-05-26 23:46:00* Test Item Value Reference Range Interpretation Comments Blood Urea Nitrogen (test code = 3094-0) 19 7-26 [facility] or plasma creatinine measurement (mass/volume)2020-05-26 23:46:00* Test Item Value Reference Range Interpretation Comments Creatinine (test code = 2160-0) 0.83 0.72-1.25 [facility]um or plasma urea nitrogen/creatinine mass celeb5271-14-48 23:46:00* Test Item Value Reference Range Interpretation Comments BUN/Creatinine Ratio (test code = 3097-3) 23 6-25 [facility]hamEstimated glomerular filtration rate (GFR) lozrpsjdrpfba9398-25-19 23:46:00* Test Item Value Reference Range Interpretation Comments Estimat Glomerular Filtration Rate (test code = 274538199) > 60 >60 Ranges were taken from the National Kidney Disease Education Program and the [facility] [employer] Foundation literature.Reference ranges:60 or greater: Adrgsa53-82 ( for 3 consecutive months): Chronic kidney disease 15 or less: Kidney failureBaylor Scott & White Medical Center – BrenhamGlucose bdhnqotusji2691-15-82 23:46:00* Test Item Value Reference Range Interpretation Comments Glucose Level (test code = HLS0040) 119 74-118 [facility] Klebergerum or plasma calcium measurement (mass/volume)2020-05-26 23:46:00* Test Item Value Reference Range Interpretation Comments Calcium Level (test code = 25517-8) 8.8 8.4-10.2 [facility] Klebergerum or plasma total bilirubin measurement (mass/volume)2020-05-26 23:46:00* Test Item Value Reference Range Interpretation Comments Total Bilirubin (test code = 1975-2) 0.3 0.2-1.2 [facility] BrenhamFluoroscopic procedure less than one hour znzgpzqd1305-35-66 23:46:00* Test Item Value Reference Range Interpretation Comments Aspartate Amino Transf (AST/SGOT) (test code = Aspartate Amino Transf (AST/SGOT)) 18 5-34 [facility] Klebergerum or plasma alanine aminotransferase measurement (enzymatic activity/volume)2020-05-26 23:46:00* Test Item Value Reference Range Interpretation Comments Alanine Aminotransferase (ALT/SGPT) (test code = 1742-6) 19 0-55 [facility] Klebergerum or plasma protein measurement (mass/volume)2020-05-26 23:46:00* Test Item Value Reference Range Interpretation Comments Total Protein (test code = 2885-2) 7.3 6.5-8.1 [facility] Klebergerum or plasma albumin measurement (mass/volume)2020-05-26 23:46:00* Test Item Value Reference Range Interpretation Comments Albumin (test code = 1751-7) 3.9 3.5-5.0 [facility] BrenhamPlasma globulin measurement (mass/volume) 2020-05-26 23:46:00* Test Item Value Reference Range Interpretation Comments Globulin (test code = 76559-2) 3.4 2.3-3.5 [facility] Klebergerum or plasma albumin/globulin mass awbgz7940-23-63 23:46:00* Test Item Value Reference Range Interpretation Comments Albumin/Globulin Ratio (test code = 1759-0) 1.1 0.8-2.[address] [facility] or plasma alkaline phosphatase measurement (enzymatic activity/volume)2020-05-26 23:46:00* Test Item Value Reference Range Interpretation Comments Alkaline Phosphatase (test code = 6768-6) 46 40-150 [facility] BrenhamBNP Qwr-dUzk8304-43-19 23:46:00* Test Item Value Reference Range Interpretation Comments B-Type Natriuretic Peptide (test code = 96007-3) 92.8 0-100 [facility]hamCHEST SINGLE (PORTABLE)2020-04-11 03:12:00 [facility] [address] [address] Patient Name: BRIAN RODRIGUEZ MR #: [id number] : 1960 Age/Sex: 59/M Req #: [id number] Adm Physician: Ordered by: KINDRA ESCOBAR MD Report #: [id number] Location: ER Room/Bed: Procedure: [id number] DX/CHEST SI NGLE (PORTABLE) Exam Date: 04/11/20 Exam Time: 0210 REPORT STATUS: Signed EXAMINATIO N: CHEST SINGLE (PORTABLE) COMPARISON: Chest x-ray 03/18/2020 BOLIVAR CATION: Shortness of breath SOB Y DISCUSSION: Frontal view of th e chest obtained at 0218 hours. HEART AND MEDIASTINUM: Stable cardiomegaly . Stable aortic tortuosity. LINES: None. LUNGS/PLEURA: The lungs a re well inflated and clear. Pulmonary veins are prominent and stable suggestiv e of pulmonary venous hypertension. No pneumonia or pulmonary edema. No pleura l effusion or pneumothorax. BONES AND SOFT TISSUES: No focal osseous lesio n. Multiple rounded calcifications in the right axilla are stable. IMP RESSION: Stable cardiomegaly without CHF. No acute pulmonary process. Si gned by: Dr. Srinivasan Hendricks MD on 04/11/2020 3:13 AM Dictated By: TERRA HENDRICKS MD 2 Transcribed By: ALISSON on 04/11/20312 COPY TO: KINDRA ESCOBAR MD Blood leukocytes automated count (number/volume)2020-04-11 02:24:00 * Test Item Value Reference Range Interpretation Comments White Blood Count (test code = 6690-2) 8.32 4.8-10.8 [facility]hamBlood erythrocytes automated count (number/volume)2020-04-11 02:24:00* Test Item Value Reference Range Interpretation Comments Red Blood Count (test code = 789-8) 4.56 4.3-5.7 [facility]hamBlood hemoglobin measurement (moles/volume)2020-04-11 02:24:00* Test Item Value Reference Range Interpretation Comments Hemoglobin (test code = 79318-4) 14.2 14.0-18.0 [facility] BrenhamAutomated blood hematocrit (volume fraction)2020-04-11 02:24:00* Test Item Value Reference Range Interpretation Comments Hematocrit (test code = 4544-3) 42.8 38.2-49.6 [facility] BrenhamAutomated erythrocyte mean corpuscular zpggoi1907-45-90 02:24:00* Test Item Value Reference Range Interpretation Comments Mean Corpuscular Volume (test code = 787-2) 93.9 81-99 [facility]hamAutomated erythrocyte mean corpuscular hemoglobin (mass per erythrocyte)2020-04-11 02:24:00* Test Item Value Reference Range Interpretation Comments Mean Corpuscular Hemoglobin (test code = 785-6) 31.1 28-32 [facility]hamAutomated erythrocyte mean corpuscular hemoglobin concentration measurement (mass/volume)2020-04-11 02:24:00* Test Item Value Reference Range Interpretation Comments Mean Corpuscular Hemoglobin Concent (test code = 786-4) 33.2 31-35 [facility] BrenhamRDW OdyYq-Ewn3771-83-04 02:24:00* Test Item Value Reference Range Interpretation Comments Red Cell Distribution Width (test code = 99827-1) 12.6 11.7 -14.4 [facility]hamAutomated blood platelet count (count/volume)2020-04-11 02:24:00* Test Item Value Reference Range Interpretation Comments Platelet Count (test code = 777-3) 240 140-360 [facility] BrenhamAutomated blood segmented neutrophil count as percentage of total ritwwegauk0755-32-22 02:24:00* Test Item Value Reference Range Interpretation Comments Neutrophils (%) (Auto) (test code = 73027-5) 44.4 38.7-80.0 [facility] blood lymphocyte count as percentage ot total izgjzwjjib0040-04-49 02:24:00* Test Item Value Reference Range Interpretation Comments Lymphocytes (%) (Auto) (test code = 736-9) 42.4 18.0-39.1 [facility] BrenhamAutomated blood monocyte count as percentage of total fnrzorvjbh3798-33-90 02:24:00* Test Item Value Reference Range Interpretation Comments Monocytes (%) (Auto) (test code = 5905-5) 8.7 4.4-11.3 [facility] blood eosinophil count as percentage of total lyhxrvlwpi1653-82-92 02:24:00* Test Item Value Reference Range Interpretation Comments Eosinophils (%) (Auto) (test code = 713-8) 3.2 0.0-6.0 [facility]hamAutomated blood basophil count as percentage of total cwwihyytbr5019-38-42 02:24:00* Test Item Value Reference Range Interpretation Comments Basophils (%) (Auto) (test code = 706-2) 0.8 0.0-1.0 [facility] BrenhamFluoroscopic procedure less than one hour czvqhhzv8392-27-33 02:24:00* Test Item Value Reference Range Interpretation Comments IM GRANULOCYTES % (test code = IM GRANULOCYTES %) 0.5 0.0- 1.0 [facility] BrenhamAutomated blood neutrophil count 2020-04-11 02:24:00* Test Item Value Reference Range Interpretation Comments Neutrophils # (Auto) (test code = 751-8) 3.7 2.1-6.9 [facility]hamBlood lymphocytes count (number/volume) 2020-04-11 02:24:00* Test Item Value Reference Range Interpretation Comments Lymphocytes # (Auto) (test code = 59735-7) 3.5 1.0-3.2 [facility]hamBlood monocytes automated count (number/volume)2020-04-11 02:24:00* Test Item Value Reference Range Interpretation Comments Monocytes # (Auto) (test code = 742-7) 0.7 0.2-0.8 [facility] BrenhamAutomated blood eosinophil count 2020-04-11 02:24:00* Test Item Value Reference Range Interpretation Comments Eosinophils # (Auto) (test code = 711-2) 0.3 0.0-0.4 [facility]hamAutomated blood basophil count (count/volume)2020-04-11 02:24:00* Test Item Value Reference Range Interpretation Comments Basophils # (Auto) (test code = 704-7) 0.1 0.0-0.1 [facility] BrenhamFluoroscopic procedure less than one hour [id number] 02:24:00* Test Item Value Reference Range Interpretation Comments Absolute Immature Granulocyte (auto (kym t code = Absolute Immature Granulocyte (auto) 0.04 0-0.1 [facility] plasma sodium measurement (moles/volume)2020-04-11 02:24:00* Test Item Value Reference Range Interpretation Comments Sodium Level (test code = 2951-2) 141 136-145 [facility]berger[facility] or plasma potassium measurement (moles/volume)2020-04-11 02:24:00* Test Item Value Reference Range Interpretation Comments Potassium Level (test code = 2823-3) 4.5 3.5-5.1 [facility] or plasma chloride measurement (moles/volume)2020-04-11 02:24:00* Test Item Value Reference Range Interpretation Comments Chloride Level (test code = 2075-0) 102 98-107 [facility]bergerum or plasma carbon dioxide, total measurement (moles/volume)2020-04-11 02:24:00* Test Item Value Reference Range Interpretation Comments Carbon Dioxide Level (test code = 2028-9) 27 22-29 [facility]bergerum or plasma anion [id number] 02:24:00* Test Item Value Reference Range Interpretation Comments Anion Gap (test code = 30873-3) 16.5 8-16 [facility]um or plasma urea nitrogen measurement (mass/volume)2020-04-11 02:24:00* Test Item Value Reference Range Interpretation Comments Blood Urea Nitrogen (test code = 3094-0) 20 7-26 [facility] or plasma creatinine measurement (mass/volume)2020-04-11 02:24:00* Test Item Value Reference Range Interpretation Comments Creatinine (test code = 2160-0) 0.94 0.72-1.25 [facility]um or plasma urea nitrogen/creatinine mass [id number] 02:24:00* Test Item Value Reference Range Interpretation Comments BUN/Creatinine Ratio (test code = 3097-3) 21 6-25 [facility]hamEstimated glomerular filtration rate (GFR) cirrgkndzoxxu0873-18-62 02:24:00* Test Item Value Reference Range Interpretation Comments Estimat Glomerular Filtration Rate (test code = 424938254) > 60 >60 Ranges were taken from the National Kidney Disease Education Program and the [facility] literature.Reference ranges:60 or greater: Lmwawh57-08 ( for 3 consecutive months): Chronic kidney disease 15 or less: Kidney failureBaylor Scott & White Medical Center – BrenhamGlucose tuafgutzyvm3258-38-24 02:24:00* Test Item Value Reference Range Interpretation Comments Glucose Level (test code = YVM6142) 109 74-118 [facility]bergerum or plasma calcium measurement (mass/volume)2020-04-11 02:24:00* Test Item Value Reference Range Interpretation Comments Calcium Level (test code = 38645-6) 9.5 8.4-10.2 [facility]berger[facility] or plasma total bilirubin measurement (mass/volume)2020-04-11 02:24:00* Test Item Value Reference Range Interpretation Comments Total Bilirubin (test code = 1975-2) 0.3 0.2-1.2 [facility]hamFluoroscopic procedure less than one hour wdattvvv0709-76-16 02:24:00* Test Item Value Reference Range Interpretation Comments Aspartate Amino Transf (AST/SGOT) (test code = Aspartate Amino Transf (AST/SGOT)) 42 5-34 [facility]bergerum or plasma alanine aminotransferase measurement (enzymatic activity/volume)2020-04-11 02:24:00* Test Item Value Reference Range Interpretation Comments Alanine Aminotransferase (ALT/SGPT) (test code = 1742-6) 39 0-55 [facility]um or plasma protein measurement (mass/volume)2020-04-11 02:24:00* Test Item Value Reference Range Interpretation Comments Total Protein (test code = 2885-2) 7.7 6.5-8.1 [facility] or plasma albumin measurement (mass/volume)2020-04-11 02:24:00* Test Item Value Reference Range Interpretation Comments Albumin (test code = 1751-7) 4.2 3.5-5.0 [facility]hamPlasma globulin measurement (mass/volume) 2020-04-11 02:24:00* Test Item Value Reference Range Interpretation Comments Globulin (test code = 22081-4) 3.5 2.3-3.5 [facility]um or plasma albumin/globulin mass oftrx6665-95-35 02:24:00* Test Item Value Reference Range Interpretation Comments Albumin/Globulin Ratio (test code = 1759-0) 1.2 0.8-2.0 [facility]um or plasma alkaline phosphatase measurement (enzymatic activity/volume)2020-04-11 02:24:00* Test Item Value Reference Range Interpretation Comments Alkaline Phosphatase (test code = 6768-6) 57 40-150 [facility] BrenhamBNP Lzb-hBsd5818-15-04 02:24:00* Test Item Value Reference Range Interpretation Comments B-Type Natriuretic Peptide (test code = 85418-1) 160.9 0-100 [facility]bergerum or plasma creatine kinase measurement (enzymatic activity/volume)2020-04-11 02:24:00* Test Item Value Reference Range Interpretation Comments Creatine Kinase (test code = 2157-6) 191 30-200 [facility]bergerum or plasma creatine kinase MB measurement (mass/volume)2020-04-11 02:24:00* Test Item Value Reference Range Interpretation Comments Creatine Kinase MB (test code = 76214-2) 3.60 0-5.0 [facility]hamTroponin I measurement by highly sensitive enzyme xombdugqsmr0177-38-86 02:24:00* Test Item Value Reference Range Interpretation Comments Troponin I (test code = 91858-6) 0.025 0-0.300 [facility] BrenhamCapillary blood glucose measurement by glucometer (mass/volume)2020-03-20 20:11:00* Test Item Value Reference Range Interpretation Comments Bedside Glucose (test code = 56565-8) 105 70-120 Meter ID: [id number] [facility] Hospital HoustonCapillary blood glucose measurement by glucometer (mass/volume)2020-03-20 20:11:00* Test Item Value Reference Range Interpretation Comments Bedside Glucose (test code = 78615-1) 105 70-120 Meter ID: [id number] [facility] Hospital HoustonBlood leukocytes automated count (number/volume)2020-03-20 07:29:00* Test Item Value Reference Range Interpretation Comments White Blood Count (test code = 6690-2) 10.33 4.8-10.8 [facility]hamBlood erythrocytes automated count (number/volume)2020-03-20 07:29:00* Test Item Value Reference Range Interpretation Comments Red Blood Count (test code = 789-8) 4.09 4.3-5.7 [facility]hamBlood hemoglobin measurement (moles/volume)2020-03-20 07:29:00* Test Item Value Reference Range Interpretation Comments Hemoglobin (test code = 74094-2) 12.9 14.0-18.0 [facility] BrenhamAutomated blood hematocrit (volume fraction)2020-03-20 07:29:00* Test Item Value Reference Range Interpretation Comments Hematocrit (test code = 4544-3) 39.7 38.2-49.6 [facility] BrenhamAutomated erythrocyte mean corpuscular wgqlwu9776-99-74 07:29:00* Test Item Value Reference Range Interpretation Comments Mean Corpuscular Volume (test code = 787-2) 97.1 81-99 [facility] BrenhamAutomated erythrocyte mean corpuscular hemoglobin (mass per erythrocyte)2020-03-20 07:29:00* Test Item Value Reference Range Interpretation Comments Mean Corpuscular Hemoglobin (test code = 785-6) 31.5 28-32 [facility] BrenhamAutomated erythrocyte mean corpuscular hemoglobin concentration measurement (mass/volume)2020-03-20 07:29:00* Test Item Value Reference Range Interpretation Comments Mean Corpuscular Hemoglobin Concent (test code = 786-4) 32.5 31-35 [facility] BrenhamRDW CrwHm-Adq3952-16-13 07:29:00* Test Item Value Reference Range Interpretation Comments Red Cell Distribution Width (test code = 07763-7) 14.1 11.7 -14.4 [facility] BrenhamAutomated blood platelet count (count/volume)2020-03-20 07:29:00* Test Item Value Reference Range Interpretation Comments Platelet Count (test code = 777-3) 219 140-360 [facility]hamAutecu health medical centered blood segmented neutrophil count as percentage of total jebosrwszc2016-96-48 07:29:00* Test Item Value Reference Range Interpretation Comments Neutrophils (%) (Auto) (test code = 53738-7) 67.2 38.7-80.0 [facility] BrenhamAutomated blood lymphocyte count as percentage ot total bsfwpzxszf7039-74-00 07:29:00* Test Item Value Reference Range Interpretation Comments Lymphocytes (%) (Auto) (test code = 736-9) 25.2 18.0-39.1 [facility] BrenhamAutomated blood monocyte count as percentage of total rultjwtxka7913-27-95 07:29:00* Test Item Value Reference Range Interpretation Comments Monocytes (%) (Auto) (test code = 5905-5) 5.9 4.4-11.3 [facility]hamAutomated blood eosinophil count as percentage of total lekqwkcbbw1170-14-12 07:29:00* Test Item Value Reference Range Interpretation Comments Eosinophils (%) (Auto) (test code = 713-8) 0.6 0.0-6.0 [facility]hamAutomated blood basophil count as percentage of total qopkhihiiq1283-68-14 07:29:00* Test Item Value Reference Range Interpretation Comments Basophils (%) (Auto) (test code = 706-2) 0.5 0.0-1.0 [facility] BrenhamFluoroscopic procedure less than one hour ypfidsxw9777-93-94 07:29:00* Test Item Value Reference Range Interpretation Comments IM GRANULOCYTES % (test code = IM GRANULOCYTES %) 0.6 0.0- 1.0 [facility] BrenhamAutomated blood neutrophil count 2020-03-20 07:29:00* Test Item Value Reference Range Interpretation Comments Neutrophils # (Auto) (test code = 751-8) 7.0 2.1-6.9 [facility]hamBlood lymphocytes count (number/volume) 2020-03-20 07:29:00* Test Item Value Reference Range Interpretation Comments Lymphocytes # (Auto) (test code = 87954-4) 2.6 1.0-3.2 [facility]hamBlood monocytes automated count (number/volume)2020-03-20 07:29:00* Test Item Value Reference Range Interpretation Comments Monocytes # (Auto) (test code = 742-7) 0.6 0.2-0.8 [facility] BrenhamAutomated blood eosinophil count 2020-03-20 07:29:00* Test Item Value Reference Range Interpretation Comments Eosinophils # (Auto) (test code = 711-2) 0.1 0.0-0.4 [facility]hamAutomated blood basophil count (count/volume)2020-03-20 07:29:00* Test Item Value Reference Range Interpretation Comments Basophils # (Auto) (test code = 704-7) 0.1 0.0-0.1 [facility] BrenhamFluoroscopic procedure less than one hour fbgbiomg5505-69-08 07:29:00* Test Item Value Reference Range Interpretation Comments Absolute Immature Granulocyte (auto (kym t code = Absolute Immature Granulocyte (auto) 0.06 0-0.1 [facility] or plasma sodium measurement (moles/volume)2020-03-20 07:29:00* Test Item Value Reference Range Interpretation Comments Sodium Level (test code = 2951-2) 139 136-145 [facility]bergerum or plasma potassium measurement (moles/volume)2020-03-20 07:29:00* Test Item Value Reference Range Interpretation Comments Potassium Level (test code = 2823-3) 4.0 3.5-5.1 [facility]berger[facility] or plasma chloride measurement (moles/volume)2020-03-20 07:29:00* Test Item Value Reference Range Interpretation Comments Chloride Level (test code = 2075-0) 108 98-107 [facility]bergerum or plasma carbon dioxide, total measurement (moles/volume)2020-03-20 07:29:00* Test Item Value Reference Range Interpretation Comments Carbon Dioxide Level (test code = 2028-9) 23 22-29 [facility]bergerum or plasma anion ztk2790-46-44 07:29:00* Test Item Value Reference Range Interpretation Comments Anion Gap (test code = 77620-7) 12.0 8-16 [facility]um or plasma urea nitrogen measurement (mass/volume)2020-03-20 07:29:00* Test Item Value Reference Range Interpretation Comments Blood Urea Nitrogen (test code = 3094-0) 22 7-26 [facility]bergerum or plasma creatinine measurement (mass/volume)2020-03-20 07:29:00* Test Item Value Reference Range Interpretation Comments Creatinine (test code = 2160-0) 0.75 0.72-1.25 [facility]bergerum or plasma urea nitrogen/creatinine mass jioef1481-57-67 07:29:00* Test Item Value Reference Range Interpretation Comments BUN/Creatinine Ratio (test code = 3097-3) 29 6-25 [facility] BrenhamEstimated glomerular filtration rate (GFR) hojnphckwekzf7081-84-84 07:29:00* Test Item Value Reference Range Interpretation Comments Estimat Glomerular Filtration Rate (test code = 333957270) > 60 >60 Ranges were taken from the National Kidney Disease Education Program and the [facility] literature.Reference ranges:60 or greater: Fymqxx05-83 ( for 3 consecutive months): Chronic kidney disease 15 or less: Kidney failureBaylor Scott & White Medical Center – BrenhamGlucose sihgcteuqll3866-43-54 07:29:00* Test Item Value Reference Range Interpretation Comments Glucose Level (test code = RWO8374) 96 74-118 [facility]bergerum or plasma calcium measurement (mass/volume)2020-03-20 07:29:00* Test Item Value Reference Range Interpretation Comments Calcium Level (test code = 77199-5) 8.4 8.4-10.2 [facility] BrenhamPhosphorus wahqdelhxej7473-73-34 07:29:00 * Test Item Value Reference Range Interpretation Comments Phosphorus Level (test code = UYI3206) 3.3 2.3-4.7 [facility]berger[facility] or plasma magnesium measurement (mass/volume)2020-03-20 07:29:00* Test Item Value Reference Range Interpretation Comments Magnesium Level (test code = 62823-2) 2.0 1.3-2.1 [facility] BrenhamPhosphorus nxcpzxpdidp1576-58-59 07:29:00 * Test Item Value Reference Range Interpretation Comments Phosphorus Level (test code = KGX9066) 3.3 2.3-4.7 [facility] or plasma magnesium measurement (mass/volume)2020-03-20 07:29:00* Test Item Value Reference Range Interpretation Comments Magnesium Level (test code = 64972-5) 2.0 1.3-2.1 [facility] BrenhamPhosphorus wxsyovtunfo0660-51-67 07:29:00 * Test Item Value Reference Range Interpretation Comments Phosphorus Level (test code = VHC1595) 3.3 2.3-4.7 [facility] or plasma magnesium measurement (mass/volume)2020-03-20 07:29:00* Test Item Value Reference Range Interpretation Comments Magnesium Level (test code = 57945-2) 2.0 1.3-2.1 [facility]bergerum or plasma creatine kinase measurement (enzymatic activity/volume)2020-03-19 16:34:00* Test Item Value Reference Range Interpretation Comments Creatine Kinase (test code = 2157-6) 63 30-200 [facility] Klebergerum or plasma creatine kinase MB measurement (mass/volume)2020-03-19 16:34:00* Test Item Value Reference Range Interpretation Comments Creatine Kinase MB (test code = 43864-8) 2.50 0-5.0 [facility] BrenhamTroponin I measurement by highly sensitive enzyme pehbqjqvgwp4658-61-25 16:34:00* Test Item Value Reference Range Interpretation Comments Troponin I (test code = 90854-6) 0.032 0-0.300 [facility]bergerum or plasma total bilirubin measurement (mass/volume)2020-03-19 07:53:00* Test Item Value Reference Range Interpretation Comments Total Bilirubin (test code = 1975-2) 0.5 0.2-1.2 [facility] BrenhamFluoroscopic procedure less than one hour oghwjnsn1036-48-62 07:53:00* Test Item Value Reference Range Interpretation Comments Aspartate Amino Transf (AST/SGOT) (test code = Aspartate Amino Transf (AST/SGOT)) 28 5-34 [facility]bergerum or plasma alanine aminotransferase measurement (enzymatic activity/volume)2020-03-19 07:53:00* Test Item Value Reference Range Interpretation Comments Alanine Aminotransferase (ALT/SGPT) (test code = 1742-6) 49 0-55 [facility]bergerum or plasma protein measurement (mass/volume)2020-03-19 07:53:00* Test Item Value Reference Range Interpretation Comments Total Protein (test code = 2885-2) 7.2 6.5-8.1 [facility] or plasma albumin measurement (mass/volume)2020-03-19 07:53:00* Test Item Value Reference Range Interpretation Comments Albumin (test code = 1751-7) 3.6 3.5-5.0 [facility] BrenhamPlasma globulin measurement (mass/volume) 2020-03-19 07:53:00* Test Item Value Reference Range Interpretation Comments Globulin (test code = 55499-6) 3.6 2.3-3.5 [facility]bergerum or plasma albumin/globulin mass ewdlj3347-36-52 07:53:00* Test Item Value Reference Range Interpretation Comments Albumin/Globulin Ratio (test code = 1759-0) 1.0 0.8-2.0 [facility] or plasma alkaline phosphatase measurement (enzymatic activity/volume)2020-03-19 07:53:00* Test Item Value Reference Range Interpretation Comments Alkaline Phosphatase (test code = 6768-6) 55 40-150 [facility] BrenhamFluoroscopic procedure less than one hour gcdvdyba3879-54-15 16:46:00* Test Item Value Reference Range Interpretation Comments Coronavirus (PCR) (test code = Coronavirus (PCR)) NOT DETECTED NOTD ETECTED SARS-COV-2 (COVID19), HIGHRISK, RT-PCRNegative results do not preclude SARS-CoV- 2 infection and should not be used as the sole basis for patient management deci sions. Negative results must be combined with clinical observations, patient his tory, and epidemiological information. Optimum specimen types and timing for pea k viral levels during infections caused by SARS-CoV-2 have not been determined. Collection of multiple specimens ot types of specimens may be necessary to detec t virus. Improper specimen collection and handling, sequence variability under p rimers/probes, or organism present below the limit of detection may lead to fals e negative results. Positive and negative predictive values of testing are highl y dependent on prevalance. False negative test results are more likely when prev alence is high.The expected result is negative (not detected).The SARS-CoV-2 kym t is intended for the qualitative detection of nucleic acid from SARS-CoV-2 in n asopharyngeal and oropharyngeal swab samples from patients who meet COVID-19 cli nical and or epidemiological criteria. For lower respiratory tract specimens, th e assay is submitted for authoriztion by FDA under an Emergency Use Authorizatio n (EUA). Testing methodology is real time RT-PCR. If received as separate collec tion devices, nasopharygeal and oropharyngeal specimens are combined for analysi s. Additional specimens may be split to a separate accession for analysi and rep orting as this test includes a single unit of service.Test results must be corre lated with clinical presentation and evaluated in the context of other laborator y and epidemiologic data. Test performance can be affected because the epidemiol ogy and clinical spectrum of infection caused by SARS-CoV-2 is not fully known. For example, the optimum types of specimens to collect and when during the cours e of infection these specimens are most likely to contain detectable viral RNA m ay not be known.This test has not been Food and Drug Administration (FDA) cleare d or approved and has been authorized by FDA under an Emergency Use Authorizatio n (EUA). The test is only authorized for the duration of the declaration that ci rcumstances exist justifying the authorization of emergency use of in vitro diag nostic tests for detection and/or diagnosis of SARS-CoV-2 under section 564(b) o f the Act, 21 U.S.C. section 360bbb-3(b)(1), unless the authorization is termina karley or revoked sooner. [facility] are certified under the C linical Laboratory Improvement Amendments of 1988 (CLIA), 42 U.S.C. section 263a , to perform high complexity tests.Testing performed by [facility] [id number] [place] [address] [phone] Director: Jeison Rayo M.D.CLIA # [id number] [facility] Fluoroscopic procedure less than one hour odhporvd7213-95-67 16:46:00* Test Item Value Reference Range Interpretation Comments Coronavirus (PCR) (test code = Coronavirus (PCR)) NOT DETECTED NOTD ETECTED SARS-COV-2 (COVID19), HIGHRISK, RT-PCRNegative results do not preclude SARS-CoV- 2 infection and should not be used as the sole basis for patient management deci sions. Negative results must be combined with clinical observations, patient his tory, and epidemiological information. Optimum specimen types and timing for pea k viral levels during infections caused by SARS-CoV-2 have not been determined. Collection of multiple specimens ot types of specimens may be necessary to detec t virus. Improper specimen collection and handling, sequence variability under p rimers/probes, or organism present below the limit of detection may lead to fals e negative results. Positive and negative predictive values of testing are highl y dependent on prevalance. False negative test results are more likely when prev alence is high.The expected result is negative (not detected).The SARS-CoV-2 kym t is intended for the qualitative detection of nucleic acid from SARS-CoV-2 in n asopharyngeal and oropharyngeal swab samples from patients who meet COVID-19 cli nical and or epidemiological criteria. For lower respiratory tract specimens, th e assay is submitted for authoriztion by FDA under an Emergency Use Authorizatio n (EUA). Testing methodology is real time RT-PCR. If received as separate collec tion devices, nasopharygeal and oropharyngeal specimens are combined for analysi s. Additional specimens may be split to a separate accession for analysi and rep orting as this test includes a single unit of service.Test results must be corre lated with clinical presentation and evaluated in the context of other laborator y and epidemiologic data. Test performance can be affected because the epidemiol ogy and clinical spectrum of infection caused by SARS-CoV-2 is not fully known. For example, the optimum types of specimens to collect and when during the cours e of infection these specimens are most likely to contain detectable viral RNA m ay not be known.This test has not been Food and Drug Administration (FDA) cleare d or approved and has been authorized by FDA under an Emergency Use Authorizatio n (EUA). The test is only authorized for the duration of the declaration that ci rcumstances exist justifying the authorization of emergency use of in vitro diag nostic tests for detection and/or diagnosis of SARS-CoV-2 under section 564(b) o f the Act, 21 U.S.C. section 360bbb-3(b)(1), unless the authorization is termina karley or revoked sooner. [facility] are certified under the C linical Laboratory Improvement Amendments of 1988 (CLIA), 42 U.S.C. section 263a , to perform high complexity tests.Testing performed by [facility] [address] [place] [phone] Director: Jeison Rayo M.D.[facility] # [id number] Scott & [facility] Arterial blood pH hajcpqzuodq2876-03-52 15:48:00* Test Item Value Reference Range Interpretation Comments Arterial Blood pH (test code = 2744-1) 7.38 7.35-7.45 [facility] BrenhampCO2 PxrH3788-03-73 15:48:00* Test Item Value Reference Range Interpretation Comments Arterial Blood Partial Pressure CO2 (test code = 2018-) 41 35-45 [facility]hamArterial blood bicarbonate measurement (moles/volume)2020-03-18 15:48:00* Test Item Value Reference Range Interpretation Comments Arterial Blood HCO3 (test code = 1959-4) 24 - [facility]hamArterial blood base excess by calculation 2020-03-18 15:48:00* Test Item Value Reference Range Interpretation Comments Arterial Blood Base Excess (test code = 1925-7) -1.0 -2-3 [facility] BrenhamFluoroscopic procedure less than one hour jczswgjq2572-84-36 15:48:00* Test Item Value Reference Range Interpretation Comments FiO2 (test code = FiO2) 32 ABG DRAWN ON RIGHT RADIAL. ON 3L NC @ 32%. DR. WELSH [facility] RESULTS.[facility]hamArterial blood pH apjdizzdmeh1648-96-62 15:48:00 * Test Item Value Reference Range Interpretation Comments Arterial Blood pH (test code = 2744-1) 7.38 7.35-7.45 [facility]hampCO2 ZpyO3975-40-70 15:48:00* Test Item Value Reference Range Interpretation Comments Arterial Blood Partial Pressure CO2 (test code = 2019-8) 41 35-45 [facility]hamArterial blood bicarbonate measurement (moles/volume)2020-03-18 15:48:00* Test Item Value Reference Range Interpretation Comments Arterial Blood HCO3 (test code = 1960-4) 24 - [facility]hamArterial blood base excess by calculation 2020-03-18 15:48:00* Test Item Value Reference Range Interpretation Comments Arterial Blood Base Excess (test code = 1925-7) -1.0 -2-3 [facility]hamFluoroscopic procedure less than one hour kmqxxaop1496-19-31 15:48:00* Test Item Value Reference Range Interpretation Comments FiO2 (test code = FiO2) 32 ABG DRAWN ON RIGHT RADIAL. ON 3L NC @ 32%. DR. WELSH [facility] RESULTS.[facility]hamArterial blood pH wdilgbnxyko4746-97-94 15:48:00 * Test Item Value Reference Range Interpretation Comments Arterial Blood pH (test code = 2744-1) 7.38 7.35-7.45 [facility]hampCO2 ShrQ0069-59-29 15:48:00* Test Item Value Reference Range Interpretation Comments Arterial Blood Partial Pressure CO2 (test code = 2019-8) 41 35-45 [facility]hamArterial blood bicarbonate measurement (moles/volume)2020-03-18 15:48:00* Test Item Value Reference Range Interpretation Comments Arterial Blood HCO3 (test code = 1960-4) 24 22-26 [facility]hamArterial blood base excess by calculation 2020-03-18 15:48:00* Test Item Value Reference Range Interpretation Comments Arterial Blood Base Excess (test code = 1925-7) -1.0 -2-3 [facility] BrenhamFluoroscopic procedure less than one hour vlgnmeba5522-13-37 15:48:00* Test Item Value Reference Range Interpretation Comments FiO2 (test code = FiO2) 32 ABG DRAWN ON RIGHT RADIAL. ON 3L NC @ 32%. DR. WELSH [facility] RESULTS.[facility]hamCHEST SINGLE (PORTABLE)2020-03-18 14:27:00 [place] [address] Patient Name: BRIAN RODRIGUEZ MR #: [id number] : 1960 Age/Sex: 59/M Req #: [id number] Adm Physician: Ordered by: VASILIY WELSH DO Report #: [id number] Location: ER Room/Bed: Procedure: [id number] DX/CHEST SINGLE (PORTABLE) Exam Date: 03/18/20 Exam [...] 03/18/201427 COPY TO: VASILIY WELSH DO BNP Wxs-yGwe9717-87-11 13:35:00* Test Item Value Reference Range Interpretation Comments B-Type Natriuretic Peptide (test code = 09157-6) 326.5 0-100 [facility] BrenhamThyroid Stimulating Hormone (TSH) 2019-07-21 07:53:00* Test Item Value Reference Range Interpretation Comments Thyroid Stimulating Hormone (TSH) (test code = 49885-0) 1.314 0.350-4.940 [facility] BrenhamTriglycerides Hcbrw3911-65-24 07:31:00* Test Item Value Reference Range Interpretation Comments Triglycerides Level (test code = 2571-8) 79 0-149 [facility]hamCholesterol Cjcvz1034-44-18 07:31:00* Test Item Value Reference Range Interpretation Comments Cholesterol Level (test code = 2093-3) 233 0-199 H Less than 200 mg/dL Low Kshk710 - 239 mg/dL Borderline Mzva463 m g/dl and greater High Risk [facility] BrenhamLDL Xcesvvpjlgx4367-46-34 07:31:00* Test Item Value Reference Range Interpretation Comments LDL Cholesterol (test code = 2089-1) 152 60-130 H [facility] BrenhamHDL Dkgmsfqwcvf6884-55-51 07:31:00* Test Item Value Reference Range Interpretation Comments HDL Cholesterol (test code = 2085-9) 65 40-60 H [facility]hamCholesterol/HDL Cwrtc4529-62-80 07:31:00 * Test Item Value Reference Range Interpretation Comments Cholesterol/HDL Ratio (test code = 9830-1) 3.6 3.9-4.7 L [facility] Klebergodium Oxbhl8340-93-54 07:09:00* Test Item Value Reference Range Interpretation Comments Sodium Level (test code = 2951-2) 137 136-145 [facility]hamPotassium Gouod5565-28-23 07:09:00* Test Item Value Reference Range Interpretation Comments Potassium Level (test code = 2823-3) 3.6 3.5-5.1 [facility]hamChloride Lpvkf6635-36-58 07:09:00* Test Item Value Reference Range Interpretation Comments Chloride Level (test code = 2075-0) 102 98-107 [facility] BrenhamCarbon Dioxide Mnifx4517-58-11 07:09:00* Test Item Value Reference Range Interpretation Comments Carbon Dioxide Level (test code = 2028-9) 26 22-29 [facility] BrenhamAnion Ajm1172-13-77 07:09:00* Test Item Value Reference Range Interpretation Comments Anion Gap (test code = 90064-4) 12.6 8-16 [facility] BrenhamBlood Urea Nddveczf4612-47-01 07:09:00* Test Item Value Reference Range Interpretation Comments Blood Urea Nitrogen (test code = 3094-0) 27 7-26 H [facility] BrenhamCreatinine2019-09-13 07:09:00* Test Item Value Reference Range Interpretation Comments Creatinine (test code = 2160-0) 1.00 0.72-1.25 [facility]hamBUN/Creatinine Riukb0221-46-98 07:09:00* Test Item Value Reference Range Interpretation Comments BUN/Creatinine Ratio (test code = 3097-3) 27 6-25 H [facility] BrenhamEstimat Glomerular Filtration Rate 2019-07-21 07:09:00* Test Item Value Reference Range Interpretation Comments Estimat Glomerular Filtration Rate (test code = 848321543) > 60 >60 Ranges were taken from the National Kidney Disease Education Program and the [facility] Kidney Foundation literature.Reference ranges:60 or greater: Ufkkpi28-16 ( for 3 consecutive months): Chronic kidney disease 15 or less: Kidney failureBaylor Scott & White Medical Center – BrenhamGlucose Ttwiy7125-34-41 07:09:00* Test Item Value Reference Range Interpretation Comments Glucose Level (test code = ITP3520) 148 74-118 H [facility] BrenhamCalcium Flfyj6606-04-33 07:09:00* Test Item Value Reference Range Interpretation Comments Calcium Level (test code = 30214-8) 9.3 8.4-10.2 [facility] BrenhamTotal Ylddhtdfk0025-97-01 07:09:00* Test Item Value Reference Range Interpretation Comments Total Bilirubin (test code = 1975-2) 0.8 0.2-1.2 [facility] BrenhamAspartate Amino Transf (AST/SGOT) 2019-07-21 07:09:00* Test Item Value Reference Range Interpretation Comments Aspartate Amino Transf (AST/SGOT) (test code = Aspartate Amino Transf (AST/SGOT)) 25 5-34 [facility] BrenhamAlanine Aminotransferase (ALT/SGPT) 2019-07-21 07:09:00* Test Item Value Reference Range Interpretation Comments Alanine Aminotransferase (ALT/SGPT) (test code = 1742-6) 49 0-55 [facility] BrenhamTotal Gjbwcfa0944-55-07 07:09:00* Test Item Value Reference Range Interpretation Comments Total Protein (test code = 2885-2) 6.9 6.5-8.1 [facility] BrenhamAlbumin2019-09-13 07:09:00* Test Item Value Reference Range Interpretation Comments Albumin (test code = 1751-7) 3.5 3.5-5.0 [facility] BrenhamGlobulin2019-09-13 07:09:00* Test Item Value Reference Range Interpretation Comments Globulin (test code = 44421-0) 3.4 2.3-3.5 [facility] BrenhamAlbumin/Globulin Ujezt8650-17-16 07:09:00 * Test Item Value Reference Range Interpretation Comments Albumin/Globulin Ratio (test code = 1759-0) 1.0 0.8-2.0 [facility] BrenhamAlkaline Nkqkcavrwco8172-14-35 07:09:00* Test Item Value Reference Range Interpretation Comments Alkaline Phosphatase (test code = 6768-6) 50 40-150 [facility] BrenhamWhite Blood Mqonf2552-31-65 06:40:00* Test Item Value Reference Range Interpretation Comments White Blood Count (test code = 6690-2) 12.23 4.8-10.8 H [facility] BrenhamRed Blood Mnwox6257-13-87 06:40:00* Test Item Value Reference Range Interpretation Comments Red Blood Count (test code = 789-8) 4.48 4.3-5.7 [facility] BrenhamHemoglobin2019-09-13 06:40:00* Test Item Value Reference Range Interpretation Comments Hemoglobin (test code = 20383-9) 14.0 14.0-18.0 [facility] BrenhamHematocrit2019-09-13 06:40:00* Test Item Value Reference Range Interpretation Comments Hematocrit (test code = 4544-3) 42.1 38.2-49.6 [facility] BrenhamMean Corpuscular Gjiiwx1057-07-55 06:40:00* Test Item Value Reference Range Interpretation Comments Mean Corpuscular Volume (test code = 787-2) 94.0 81-99 [facility] BrenhamMean Corpuscular Wzeogafbrn8210-55-37 06:40:00* Test Item Value Reference Range Interpretation Comments Mean Corpuscular Hemoglobin (test code = 785-6) 31.3 28-32 [facility] BrenhamMean Corpuscular Hemoglobin Concent 2019-07-21 06:40:00* Test Item Value Reference Range Interpretation Comments Mean Corpuscular Hemoglobin Concent (test code = 786-4) 33.3 31-35 [facility] BrenhamRed Cell Distribution Gjvdx3376-40-33 06:40:00* Test Item Value Reference Range Interpretation Comments Red Cell Distribution Width (test code = 75863-0) 12.5 11.7 -14.4 [facility] BrenhamPlatelet Pzlro2149-50-45 06:40:00* Test Item Value Reference Range Interpretation Comments Platelet Count (test code = 777-3) 230 140-360 [facility] BrenhamNeutrophils (%) (Auto)2019-07-21 06:40:00 * Test Item Value Reference Range Interpretation Comments Neutrophils (%) (Auto) (test code = 03120-8) 67.4 38.7-80.0 [facility] BrenhamLymphocytes (%) (Auto)2019-07-21 06:40:00 * Test Item Value Reference Range Interpretation Comments Lymphocytes (%) (Auto) (test code = 736-9) 25.5 18.0-39.1 [facility] BrenhamMonocytes (%) (Auto)2019-07-21 06:40:00* Test Item Value Reference Range Interpretation Comments Monocytes (%) (Auto) (test code = 5905-5) 5.8 4.4-11.3 [facility] BrenhamEosinophils (%) (Auto)2019-07-21 06:40:00 * Test Item Value Reference Range Interpretation Comments Eosinophils (%) (Auto) (test code = 713-8) 0.3 0.0-6.0 [facility] BrenhamBasophils (%) (Auto)2019-07-21 06:40:00* Test Item Value Reference Range Interpretation Comments Basophils (%) (Auto) (test code = 706-2) 0.3 0.0-1.0 [facility] BrenhamIM GRANULOCYTES %2019-07-21 06:40:00* Test Item Value Reference Range Interpretation Comments IM GRANULOCYTES % (test code = IM GRANULOCYTES %) 0.7 0.0- 1.0 [facility] BrenhamNeutrophils # (Auto)2019-07-21 06:40:00* Test Item Value Reference Range Interpretation Comments Neutrophils # (Auto) (test code = 751-8) 8.2 2.1-6.9 H [facility] BrenhamLymphocytes # (Auto)2019-07-21 06:40:00* Test Item Value Reference Range Interpretation Comments Lymphocytes # (Auto) (test code = 14915-3) 3.1 1.0-3.2 [facility] BrenhamMonocytes # (Auto)2019-07-21 06:40:00* Test Item Value Reference Range Interpretation Comments Monocytes # (Auto) (test code = 742-7) 0.7 0.2-0.8 [facility] BrenhamEosinophils # (Auto)2019-07-21 06:40:00* Test Item Value Reference Range Interpretation Comments Eosinophils # (Auto) (test code = 711-2) 0.0 0.0-0.4 [facility] BrenhamBasophils # (Auto)2019-07-21 06:40:00* Test Item Value Reference Range Interpretation Comments Basophils # (Auto) (test code = 704-7) 0.0 0.0-0.1 [facility] BrenhamAbsolute Immature Granulocyte (auto 2019-07-21 06:40:00* Test Item Value Reference Range Interpretation Comments Absolute Immature Granulocyte (auto (kym t code = Absolute Immature Granulocyte (auto) 0.08 0-0.1 [facility] Klebergerum or plasma triglyceride measurement (mass/volume)2019-07-21 06:10:00* Test Item Value Reference Range Interpretation Comments Triglycerides Level (test code = 2571-8) 79 0-149 [facility] Klebergerum or plasma cholesterol measurement (mass/volume)2019-07-21 06:10:00* Test Item Value Reference Range Interpretation Comments Cholesterol Level (test code = 2093-3) 233 0-199 Less than 200 mg/dL Low Wyhd853 - 239 mg/dL Borderline Tmgh256 m g/dl and greater High Risk [facility] Klebergerum or plasma cholesterol in LDL measurement (mass/volume) 2019-07-21 06:10:00* Test Item Value Reference Range Interpretation Comments LDL Cholesterol (test code = 2089-1) 152 60-130 [facility] Klebergerum or plasma cholesterol in HDL measurement (mass/volume)2019-07-21 06:10:00* Test Item Value Reference Range Interpretation Comments HDL Cholesterol (test code = 2085-9) 65 40-60 [facility] Klebergerum or plasma total cholesterol/cholesterol in HDL mass sozld6219-00-02 06:10:00* Test Item Value Reference Range Interpretation Comments Cholesterol/HDL Ratio (test code = 9830-1) 3.6 3.9-4.7 [facility] Klebergerum or plasma thyrotropin measurement by detection limit <= 0.005 miu/l (units/volume)2019-07-21 06:10:00* Test Item Value Reference Range Interpretation Comments Thyroid Stimulating Hormone (TSH) (test code = 15818-7) 1.314 0.350-4.940 [facility] Klebergerum or plasma triglyceride measurement (mass/volume)2019-07-21 06:10:00* Test Item Value Reference Range Interpretation Comments Triglycerides Level (test code = 2571-8) 79 0-149 [facility] Klebergerum or plasma cholesterol measurement (mass/volume)2019-07-21 06:10:00* Test Item Value Reference Range Interpretation Comments Cholesterol Level (test code = 2093-3) 233 0-199 Less than 200 mg/dL Low Rqbt834 - 239 mg/dL Borderline Nibn868 m g/dl and greater High Risk [facility] Klebergerum or plasma cholesterol in LDL measurement (mass/volume) 2019-07-21 06:10:00* Test Item Value Reference Range Interpretation Comments LDL Cholesterol (test code = 2089-1) 152 60-130 [facility] Klebergerum or plasma cholesterol in HDL measurement (mass/volume)2019-07-21 06:10:00* Test Item Value Reference Range Interpretation Comments HDL Cholesterol (test code = 2085-9) 65 40-60 [facility] Klebergerum or plasma total cholesterol/cholesterol in HDL mass oauyo7797-77-30 06:10:00* Test Item Value Reference Range Interpretation Comments Cholesterol/HDL Ratio (test code = 9830-1) 3.6 3.9-4.7 [facility] Klebergerum or plasma thyrotropin measurement by detection limit <= 0.005 miu/l (units/volume)2019-07-21 06:10:00* Test Item Value Reference Range Interpretation Comments Thyroid Stimulating Hormone (TSH) (test code = 93475-5) 1.314 0.350-4.940 [facility] Klebergtool Occult Dnxmo8707-14-44 04:05:00* Test Item Value Reference Range Interpretation Comments Stool Occult Blood (test code = 2335-8) NEGATIVE NEGATIVE [facility] gastrointestinal hemoglobin iljxbxcjo8096-97-32 03:58:00* Test Item Value Reference Range Interpretation Comments Stool Occult Blood (test code = 2335-8) NEGATIVE NEGATIVE [facility] gastrointestinal hemoglobin qhrkmpqis1157-95-99 03:58:00* Test Item Value Reference Range Interpretation Comments Stool Occult Blood (test code = 2335-8) NEGATIVE NEGATIVE [facility] BrenhamCreatine Kinase SL9844-81-77 16:46:00* Test Item Value Reference Range Interpretation Comments Creatine Kinase MB (test code = 46085-8) 3.40 0-5.0 [facility] BrenhamTroponin M8341-65-81 16:46:00* Test Item Value Reference Range Interpretation Comments Troponin I (test code = RNI6966) 0.071 0-0.300 [facility] BrenhamCreatine Qtbfja0833-21-42 16:38:00* Test Item Value Reference Range Interpretation Comments Creatine Kinase (test code = 2157-6) 119 30-200 [facility] BrenhamB-Type Natriuretic Yvafldm4404-88-08 08:59:00* Test Item Value Reference Range Interpretation Comments B-Type Natriuretic Peptide (test code = 09869-4) 136.8 0-100 H [facility]hamCHEST SINGLE (PORTABLE)2019-07-20 01:00:00 [facility] [address] [place] [address] Patient Name: BRIAN RODRIGUEZ MR #: [id number] : 1960 Age/Sex: 59/M Req #: [id number] Adm Physician: Ordered by: KINDRA ESCOBAR MD Report #: [id number] Location: ER Room/Bed: Procedure: [id number] DX/CHEST SINGLE (PORTABLE) Exam Date: 07/20/19 Exam [...] 0 COPY TO: KINDRA ESCOBAR MD Amylase Ngrxw3453-43-63 00:46:00* Test Item Value Reference Range Interpretation Comments Amylase Level (test code = 1798-8) 23 25-125 L [facility] BrenhamLipase2019-09-12 00:46:00* Test Item Value Reference Range Interpretation Comments Lipase (test code = 3040-3) [facility] BrenhamD-Dimer Quantitative (PE/DVT)2019-07-20 00:21:00* Test Item Value Reference Range Interpretation Comments D-Dimer Quantitative (PE/DVT) (test code = 05919-3) 0.45 0. 00-0.45 [facility] BrenhamFibrin D-dimer DDU measurement in platelet poor plasma (mass/volume)2019-07-19 23:50:00* Test Item Value Reference Range Interpretation Comments D-Dimer Quantitative (PE/DVT) (test code = 35070-5) 0.45 0. 00-0.45 [facility] Klebergerum or plasma amylase measurement (enzymatic activity/volume)2019-07-19 23:50:00* Test Item Value Reference Range Interpretation Comments Amylase Level (test code = 1798-8) [facility] Klebergerum or plasma lipase measurement (enzymatic activity/volume)2019-07-19 23:50:00* Test Item Value Reference Range Interpretation Comments Lipase (test code = 3040-3) [facility] BrenhamFibrin D-dimer DDU measurement in platelet poor plasma (mass/volume)2019-07-19 23:50:00* Test Item Value Reference Range Interpretation Comments D-Dimer Quantitative (PE/DVT) (test code = 49583-0) 0.45 0. 00-0.45 [facility] Klebergerum or plasma amylase measurement (enzymatic activity/volume)2019-07-19 23:50:00* Test Item Value Reference Range Interpretation Comments Amylase Level (test code = 1798-8) [facility] Klebergerum or plasma lipase measurement (enzymatic activity/volume)2019-07-19 23:50:00* Test Item Value Reference Range Interpretation Comments Lipase (test code = 3040-3) [facility]
[2020-06-19 15:46] LABS: AMYLASE 20 U/L (25-125); LIPASE 15 U/L (8-78)
[2020-06-19 15:48] LABS: ALANINE AMINOTRANSFERASE 24 IU/L (0-55); ALBUMIN 4.3 g/dL (3.5-5.0); ALBUMIN/GLOBULIN RATIO 1.3 (0.8-2.0); ALKALINE PHOSPHATASE 48 IU/L (40-150); ANION GAP 14.5 mmol/L (8-16); BLOOD UREA NITROGEN 15 mg/dL (7-26); BUN/CREATININE RATIO 20 (6-25); CALCIUM 9.3 mg/dL (8.4-10.2); CARBON DIOXIDE 23 mmol/L (22-29); CHLORIDE 105 mmol/L (98-107); CREATINE KINASE 122 IU/L (30-200); CREATININE, SERUM 0.76 mg/dL (0.72-1.25); EST GLOMERULAR FILTRATION RATE > 60 ML/MIN (60-); GLUCOSE 135 mg/dL (74-118); POTASSIUM 3.5 mmol/L (3.5-5.1); SODIUM 139 mmol/L (136-145)
[2020-06-19 16:46] LABS: CLARITY,URINE CLEAR (CLEAR); COLOR,URINE YELLOW (YELLOW); KETONES,URINE NEGATIVE (NEGATIVE); LEUKOCYTE ESTERASE ,URINE NEGATIVE (NEGATIVE); NITRITE,URINE NEGATIVE (NEGATIVE); PROTEIN,URINE DIPSTICK NEGATIVE (NEGATIVE)
--- NOTE | 2020-06-19 16:46 | Diagnostic Imaging Report ---
EXAM: CT Abdomen and Pelvis WITH intravenous contrast INDICATION: Abdominal pain COMPARISON: Chest radiograph of 05/27/2020 TECHNIQUE: Abdomen and pelvis were scanned utilizing a multidetector helical scanner from the lung base to the pubic symphysis after administration of IV contrast. Coronal and sagittal reformations were obtained. Routine protocol was performed. Scan was performed during portal venous phase. IV CONTRAST: 100mL of Isovue 370 ORAL CONTRAST: Water RADIATION DOSE: Total DLP: 701 mGy*cm Dose modulation, iterative reconstruction, and/or weight based adjustment of the mA/kV was utilized to reduce the radiation dose to as low as reasonably achievable. FINDINGS: LOWER THORAX: Normal. HEPATOBILIARY: Diffuse hepatic steatosis. No focal liver lesion. No biliary ductal dilation. Unremarkable gallbladder. SPLEEN: Scattered subcentimeter calcified granulomas in the nonenlarged spleen. PANCREAS: No focal masses or ductal dilatation. ADRENALS: No adrenal nodules. Calcification associated with the right adrenal gland may be related to remote adrenal hemorrhage. KIDNEYS/URETERS: No hydronephrosis, renal calculi, or solid mass lesions. Right renal cysts measure up to 1.6 cm. PELVIC ORGANS/BLADDER: Unremarkable. PERITONEUM / RETROPERITONEUM: No free air or fluid. LYMPH NODES: No lymphadenopathy. VESSELS: Scattered atherosclerotic calcifications of the nonaneurysmal abdominal aorta and major branches. GI TRACT: Wall thickening of the antrum and distal body of the stomach up to 1.8 cm.. No bowel obstruction. Mild diverticulosis without CT evidence of diverticulitis. Normal appendix. BONES AND SOFT TISSUES: No acute osseous injury. No suspicious lytic or blastic lesions. IMPRESSION: Prominent wall thickening of the antrum and distal body of the stomach may reflect gastritis or alternatively a neoplastic etiology such as lymphoma. Recommend further evaluation with upper endoscopy. Signed by: Turner Briggs MD on 06/19/2020 4:43 PM
[2020-06-19 16:47] LABS: AMPHETAMINES SCREEN,URINE POSITIVE (NEGATIVE); BENZODIAZEPINES SCREEN,URINE NEGATIVE (NEGATIVE); PHENCYCLIDINE SCREEN,URINE NEGATIVE (NEGATIVE)
[2020-06-19 16:48] LABS: BILIRUBIN,URINE NEGATIVE (NEGATIVE); URINE UROBILINOGEN 0.2 mg/dL (0.2 - 1)
[2020-06-19 17:08] LABS: BACTERIA,URINE MODERATE /HPF; EPITHELIAL CELLS,URINE FEW /LPF; HYALINE CASTS >15 (0-1); RBC,URINE 0-5 /HPF (0-5); WBC,URINE (MAN) 0-5 /HPF (0-5)
--- NOTE | 2020-06-19 17:16 | Emergency Department Note ---
History of Present Illnes History of Present Illness Chief Complaint: Abdominal Complaints History of Present Illness This is a 59 year old male c/o epigastric abd pain that started around 0300 this morning with n/v/d and c/o cp no sob states he drank 2 40 oz beers yesterday and is supposed to have exploratory procedure states [facility] told him he had blood in stools states he drinks every night before bed and states he smokes marijuana everyday no longer uses tobacco. 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 Any updates have been documented here. Past Medical History Recent Fever: No Clinical Suspicion of Infectio: Yes New/Unexplained Change in Ment: No Past Medical History: Hypertension, CHF, Asthma, CAD, Anxiety, Depression Other Medical History: CHRONIC L SHOULDER PAIN Past Surgical History: PCI Social History Smoking Cessation: Current every day smoker Counseling Performed: No Alcohol Use: Daily Any Illegal Drug Use: No TB Exposure/Symptoms: No Physically hurt or threatened: No Family History Family history of heart diseas: No Other Last Tetanus: 2014 Any Pre-Existing Lines (PICC,: No Review of Systems Review of Systems Constitutional: Reports as per HPI EENTM: Reports no symptoms Cardiovascular: Reports as per HPI Respiratory: Reports no symptoms Gastrointestinal: Reports as per HPI Genitourinary: Reports no symptoms Musculoskeletal: Reports no symptoms Integumentary: Reports no symptoms Neurological: Reports no symptoms Psychological: Reports no symptoms Endocrine: Reports no symptoms Hematological/Lymphatic: Reports no symptoms Physical Exam Related Data Allergies: Coded Allergies: No Known Allergies (Unverified , 05/13/15) Triage Vital Signs Vital Signs Date Time Temp Pulse Resp B/P (MAP) Pulse Ox O2 Delivery O2 Flow Rate FiO2 06/19/20 15:03 97.8 92 18 147/108 99 Room Air Vital signs reviewed: Yes Physical Exam CONSTITUTIONAL Constitutional: Present well-developed, Present well-nourished HENT HENT: Present normocephalic, Present atraumatic, Present oropharynx cl ear/moist, Present nose normal HENT L/R: Present left ext ear normal, Present right ext ear normal EYES Eyes: Reports PERRL, Reports conjunctivae normal NECK Neck: Present ROM normal PULMONARY Pulmonary: Present effort normal, Present breath sounds normal CARDIOVASCULAR Cardiovascular: Present regular rhythm, Present heart sounds normal, Present capillary refill normal, Present normal rate GASTROINTESTINAL Abdominal: Present soft, Present nontender, Present bowel sounds normal; Absent tender, Absent guarding, Absent rebound GENITOURINARY Genitourinary: Present exam deferred SKIN Skin: Present warm, Present dry MUSCULOSKELETAL Musculoskeletal: Present ROM normal NEUROLOGICAL Neurological: Present alert, Present oriented x 3, Present no gross motor or sensory deficits PSYCHOLOGICAL Psychological: Present mood/affect normal, Present judgement normal Results Laboratory Result Diagram: 06/19/20 1515 06/19/20 1515 Laboratory Laboratory Tests Test 06/19/20 16:05 06/19/20 15:15 Urine Color Yellow (YELLOW) Urine Clarity Clear (CLEAR) Urine pH 5 (5 - 7) Urine Specific [place] >=1.030 (1.010-1.025) Urine Protein Negative (NEGATIVE) Urine Glucose (UA) Negative (NEGATIVE) Urine Ketones Negative (NEGATIVE) Urine Blood 1+ (NEGATIVE) Urine Nitrite Negative (NEGATIVE) Urine Bilirubin Negative (NEGATIVE) Urine Urobilinogen 0.2 mg/dL (0.2 - 1) Urine Leukocyte Esterase Negative (NEGATIVE) Urine RBC 0-5 /HPF (0-5) Urine WBC 0-5 /HPF (0-5) Urine Epithelial Cells Few /LPF (NONE) Urine Bacteria Moderate /HPF (NONE) Urine Hyaline Casts >15 (0-1) Urine Opiates Screen Negative (NEGATIVE) Urine Methadone Screen Negative (NEGATIVE) Urine Barbiturates Screen Negative (NEGATIVE) Urine Phencyclidine Screen Negative (NEGATIVE) Urine Amphetamines Screen Positive (NEGATIVE) Urine Methamphetamines Screen Positive (NEGATIVE) Urine Benzodiazepines Screen Negative (NEGATIVE) Urine Cocaine Screen Negative (NEGATIVE) Urine Cannabinoids Screen Positive (NEGATIVE) White Blood Count 10.19 x10e3/uL (4.8-10.8) Red Blood Count 4.64 x10e6/uL (4.3-5.7) Hemoglobin 14.1 g/dL (14.0-18.0) Hematocrit 41.5 % (38.2-49.6) Mean Corpuscular Volume 89.4 fL (81-99) Mean Corpuscular Hemoglobin 30.4 pg (28-32) Mean Corpuscular Hemoglobin Concent 34.0 g/dL (31-35) Red Cell Distribution Width 13.0 % (11.7-14.4) Platelet Count 239 x10e3/uL (140-360) Neutrophils (%) (Auto) 72.9 % (38.7-80.0) Lymphocytes (%) (Auto) 17.3 % (18.0-39.1) Monocytes (%) (Auto) 7.9 % (4.4-11.3) Eosinophils (%) (Auto) 0.9 % (0.0-6.0) Basophils (%) (Auto) 0.4 % (0.0-1.0) Neutrophils # (Auto) 7.4 (2.1-6.9) Lymphocytes # (Auto) 1.8 (1.0-3.2) Monocytes # (Auto) 0.8 (0.2-0.8) Eosinophils # (Auto) 0.1 (0.0-0.4) Basophils # (Auto) 0.0 (0.0-0.1) Absolute Immature Granulocyte (auto 0.06 x10e3/uL (0-0.1) Prothrombin Time 12.7 seconds (11.9-14.5) Prothromb Time International Ratio 0.91 Activated Partial Thromboplast Time 27.1 seconds (23.8-35.5) Sodium Level 139 mmol/L (136-145) Potassium Level 3.5 mmol/L (3.5-5.1) Chloride Level 105 mmol/L (98-107) Carbon Dioxide Level 23 mmol/L (22-29) Anion Gap 14.5 mmol/L (8-16) Blood Urea Nitrogen 15 mg/dL (7-26) Creatinine 0.76 mg/dL (0.72-1.25) Estimat Glomerular Filtration Rate > 60 ML/MIN (60-) BUN/Creatinine Ratio 20 (6-25) Glucose Level 135 mg/dL (74-118) Calcium Level 9.3 mg/dL (8.4-10.2) Total Bilirubin 0.6 mg/dL (0.2-1.2) Aspartate Amino Transf (AST/SGOT) 20 IU/L (5-34) Alanine Aminotransferase (ALT/SGPT) 24 IU/L (0-55) Alkaline Phosphatase 48 IU/L (40-150) Creatine Kinase 122 IU/L (30-200) Creatine Kinase MB 3.10 ng/mL (0-5.0) Troponin I 0.003 ng/mL (0-0.300) Total Protein 7.6 g/dL (6.5-8.1) Albumin 4.3 g/dL (3.5-5.0) Globulin 3.3 g/dL (2.3-3.5) Albumin/Globulin Ratio 1.3 (0.8-2.0) Amylase Level 20 U/L (25-125) Lipase 15 U/L (8-78) Lab results reviewed: Yes Imaging Imaging results reviewed: Yes Procedures 12 Lead ECG Interpretation ECG Interpretation : ECG: ECG 1 Yarn Wrapper: Interpreted by ED physician Date: Jun 19, 2020 Time: 15:03 Rhythm: sinus rhythm Rate: normal (88) Conduction: left bundle branch block ST segment elevation: aVR, V1, V2, V3 ST segment flattening: I, aVL, V5, V6 T wave inversion: I, aVL Clinical Impression: abnormal ECG Additional Comments NO CHANGE FROM 05/26, 05/11 AND 03/19/20 Assessment & Plan Medical Decision Making MDM CBC, CHEM, CARDIACS, UA, BEATRIZ/LIPASE, UDS, CT ABD/PELVIS - evaluate for abdominal abscess, appendicitis, biliary pathology, pancreatitis, perforated viscus, UTI. Patient also is daily marijuana user and must consider cannabinoid hyperemesis syndrome - give IVF's, IV Zofran, Haldol and reassess Reassessment Reassessment dc home, Protonix daily, Bentyl/Zofran, DC drug use and EtOH, F/U PCP Assessment & Plan Final Impression: (1) Drug use (2) Gastritis (3) Vomiting and diarrhea Depart Disposition: HOME, SELF-CARE Last Vital Signs Date Time Temp Pulse Resp B/P (MAP) Pulse Ox O2 Delivery O2 Flow Rate FiO2 06/19/20 15:22 98.5 88 15 146/109 100 Room Air Home Meds Active Scripts Famotidine (PEPCID) 20 Mg Tablet, 20 MG PO ACB for 30 Days, TAB Prov:JUANITA BARTON NP 05/27/20 Aspirin (ASPIRIN EC) 81 Mg Tablet.dr, 81 MG PO DAILY for 60 Days, #60 TAB 0 Refills Prov:DUONG OVERTON METEOROLOGIST IN CHARGE 03/20/20 Simvastatin (SIMVASTATIN) 40 Mg Tablet, 20 MG PO 2100 for 60 Days, #60 TAB 0 Refills Prov:DUONG OVERTON METEOROLOGIST IN CHARGE 03/20/20 Carvedilol (COREG) 12.5 Mg Tab, 6.25 MG PO BID for 60 Days, #120 TAB 0 Refills Prov:DUONG OVERTON METEOROLOGIST IN CHARGE 03/20/20 Losartan Potassium (LOSARTAN POTASSIUM) 25 Mg Tablet, 25 MG PO BID for 60 Days, #120 TAB 0 Refills Prov:DUONG OVERTON METEOROLOGIST IN CHARGE 03/20/20 Furosemide (LASIX) 40 Mg Tablet, 40 MG PO DAILY for 60 Days, #60 TAB 0 Refills Prov:DUONG OVERTON METEOROLOGIST IN CHARGE 03/20/20 Medications in the ED Sodium Chloride 1,000 ml @ ud STK-MED ONCE .ROUTE ; Start 06/19/20 at 15:18; Stop 06/19/20 at 15:12; Status DC Sodium Chloride 1,000 ml @ 0 mls/hr Q0M ONCE IV Last administered on 06/19/20at 15:25; Admin Dose 999 MLS/HR; Start 06/19/20 at 15:15; Stop 06/19/20 at 15:16; Status DC Ondansetron HCl 8 mg NOW STAT IV Last administered on 06/19/20at 15:35; Admin Dose 8 MG; Start 06/19/20 at 15:10; Stop 06/19/20 at 15:22; Status DC Pantoprazole Sodium 40 mg NOW STAT IV Last administered on 06/19/20at 15:35; Admin Dose 40 MG; Start 06/19/20 at 15:10; Stop 06/19/20 at 15:22; Status DC Haloperidol Lactate 2 mg ONCE ONCE IV Last administered on 06/19/20at 15:35; Admin Dose 2 MG; Start 06/19/20 at 15:15; Stop 06/19/20 at 15:22; Status DC YAZAN KRISHNAMURTHY MD Jun 19, 2020 17:16
[2020-06-19] MEDS ORDERED: SODIUM CHLORIDE 0.9% 50ML 50 ML ONE (18:21)
[2020-06-19] MEDS ORDERED: IOPAMIDOL 370 MG/ML 200 ML INFUS..BTL INJ ONE (18:21)
== END 2020-06-19 18:11 | disposition home or self-care (01) ==
LOC: ER 15:37
DX: K29.70 Gastritis, unspecified, without bleeding (principal); R10.13 Epigastric pain; R11.2 Nausea with vomiting, unspecified; M25.512 Pain in left shoulder; R94.31 Abnormal electrocardiogram [ECG] [EKG]; I10 Essential (primary) hypertension; I25.10 Atherosclerotic heart disease of native coronary artery without angina pectoris; F12.90 Cannabis use, unspecified, uncomplicated; F15.90 Other stimulant use, unspecified, uncomplicated
CPT/HCPCS: 36415; 74177; 80053; 80307; 81001; 82150; 82550; 82553; 83690; 84484; 85025; 85610; 85730; 93005; 99284; J1630; J2405; J7030; Q9967

== ENCOUNTER 2020-07-20 00:11 | Emergency (ER) | payer OTHER, SELFPAY ==
[~2020-07-20] VITALS: Ht 177.8 cm; Wt 81.6 kg
[2020-07-20 00:42] LABS: BASOPHILS % 0.5 % (0.0-1.0); EOSINOPHILS # (AUTO) 0.2 (0.0-0.4); EOSINOPHILS % 1.9 % (0.0-6.0); HEMATOCRIT 35.1 % (38.2-49.6); HEMOGLOBIN 11.6 g/dL (14.0-18.0); LYMPHOCYTES % 36.8 % (18.0-39.1); MEAN CORPUSCULAR HEMOGLOBIN 31.2 pg (28-32); MEAN CORPUSCULAR VOLUME 94.4 fL (81-99); MONOCYTES # (AUTO) 0.6 (0.2-0.8); MONOCYTES % 6.8 % (4.4-11.3); NEUTROPHILS # (AUTO) 4.4 (2.1-6.9); NEUTROPHILS % 53.6 % (38.7-80.0); PLATELET COUNT 207 x10e3/uL (140-360); RED BLOOD COUNT 3.72 x10e6/uL (4.3-5.7); RED CELL DISTRIBUTION WIDTH 13.2 % (11.7-14.4)
--- NOTE | 2020-07-20 00:43 | Emergency Department Note ---
History of Present Illnes History of Present Illness Chief Complaint: Chest Pain History of Present Illness This is a 60 year old male Chief Complaint Comment Patient brought in by [facility] for c/o shortness of breath and intermittent chest pressure that has been going on since . Patient slightly tachypneic. Patient also c/o exertional dyspnea. 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 Arrival Mode: [facility] EMS Treatment FARE COLLECTOR: IV, See EMS Report Prototyper Required: No Onset (how long ago): day(s) (2) Location: Chest Quality: pressure Radiation: Reports non-radiation Severity: mild Onset quality: gradual Duration (how long): day(s) (2) Timing of current episode: sporadic Progression: waxing and waning Chronicity: recurrent Context: Denies recent illness, Denies recent surgery Relieving factors: none Exacerbating factors: none Associated symptoms: Reports denies other symptoms Treatments prior to arrival: none Past Medical/Family History Physician Review I have reviewed the patient's past medical and family history. Any updates have been documented here. Past Medical History Recent Fever: No Clinical Suspicion of Infectio: No New/Unexplained Change in Ment: No Past Medical History: Hypertension, CHF, Asthma, CAD, Anxiety, Depression Other Medical History: CHRONIC L SHOULDER PAIN Past Surgical History: PCI Other Last Tetanus: 2014 Review of Systems Review of Systems Constitutional: Reports as per HPI EENTM: Reports no symptoms Cardiovascular: Reports as per HPI, Reports chest pain Respiratory: Reports no symptoms Gastrointestinal: Reports no symptoms Genitourinary: Reports no symptoms Musculoskeletal: Reports no symptoms Integumentary: Reports no symptoms Neurological: Reports no symptoms Psychological: Reports no symptoms Endocrine: Reports no symptoms Hematological/Lymphatic: Reports no symptoms Physical Exam Related Data Allergies: Coded Allergies: No Known Allergies (Unverified , 05/13/15) Triage Vital Signs Vital Signs Date Time Temp Pulse Resp B/P (MAP) Pulse Ox O2 Delivery O2 Flow Rate FiO2 07/20/20 00:15 98.0 83 26 130/81 96 Room Air Vital signs reviewed: Yes Physical Exam CONSTITUTIONAL Constitutional: Present well-developed, Present well-nourished HENT HENT: Present normocephalic, Present atraumatic, Present oropharynx clear/moist, Present nose normal HENT L/R: Present left ext ear normal, Present right ext ear normal EYES Eyes: Reports PERRL, Reports conjunctivae normal NECK Neck: Present ROM normal PULMONARY Pulmonary: Present effort normal, Present breath sounds normal CARDIOVASCULAR Cardiovascular: Present regular rhythm, Present heart sounds normal, Present capillary refill normal, Present normal rate GASTROINTESTINAL Abdominal: Present soft, Present nontender, Present bowel sounds normal GENITOURINARY Genitourinary: Present exam deferred SKIN Skin: Present warm, Present dry MUSCULOSKELETAL Musculoskeletal: Present ROM normal NEUROLOGICAL Neurological: Present alert, Present oriented x 3, Present no gross motor or sensory deficits PSYCHOLOGICAL Psychological: Present mood/affect normal, Present judgement normal Results Laboratory Lab results reviewed: Yes Imaging Imaging results reviewed: Yes Diagnostics Tests Diagnostic test(s) reviewed: Yes Procedures 12 Lead ECG Interpretation ECG Interpretation : Prototyper: Interpreted by ED physician Date: Jul 20, 2020 Prior ECG tracings: reviewed Rhythm: sinus rhythm Rate: normal Conduction: left bundle branch block ST segment elevation: all T waves normal: Yes Clinical Impression: abnormal ECG Assessment & Plan Medical Decision Making MDM 60-year-old male presents for intermittent chest pain for the last day and half. He otherwise denies any symptoms. Examination shows stable vital signs, within normal limits. Initial differential includes ACS versus CHF exacerbation versus pneumonia among others. Doubt pulmonary embolism at this time. Cardiology workup is largely unremarkable. I discussed results patient is appropriate for discharge. Referral for cardiology was placed and instructed to follow-up with his primary care doctor as well. Reassessment Reassessment time: 00:42 Reassessment Well appearing, NAD Assessment & Plan Final Impression: (1) Chest pain Depart Disposition: HOME, SELF-CARE Last Vital Signs Date Time Temp Pulse Resp B/P (MAP) Pulse Ox O2 Delivery O2 Flow Rate FiO2 07/20/20 00:35 82 19 114/88 99 Room Air 07/20/20 00:15 98.0 Home Meds Active Scripts Famotidine (PEPCID) 20 Mg Tablet, 20 MG PO ACB for 30 Days, TAB Prov:JUANITA BARTON VARNISH FILTERER 05/27/20 Aspirin (ASPIRIN EC) 81 Mg Tablet.dr, 81 MG PO DAILY for 60 Days, #60 TAB 0 Refills Prov:DUONG OVERTON NP 03/20/20 Simvastatin (SIMVASTATIN) 40 Mg Tablet, 20 MG PO 2100 for 60 Days, #60 TAB 0 Refills Prov:DUONG OVERTON NP 03/20/20 Carvedilol (COREG) 12.5 Mg Tab, 6.25 MG PO BID for 60 Days, #120 TAB 0 Refills Prov:DUONG OVERTON NP 03/20/20 Losartan Potassium (LOSARTAN POTASSIUM) 25 Mg Tablet, 25 MG PO BID for 60 Days, #120 TAB 0 Refills Prov:DUONG OVERTON NP 03/20/20 Furosemide (LASIX) 40 Mg Tablet, 40 MG PO DAILY for 60 Days, #60 TAB 0 Refills Prov:DUONG OVERTON NP 03/20/20 JAIRO LUNA MD Jul 20, 2020 00:43
[2020-07-20 01:05] LABS: ALANINE AMINOTRANSFERASE 44 IU/L (0-55); ALBUMIN 4.3 g/dL (3.5-5.0); ALBUMIN/GLOBULIN RATIO 1.9 (0.8-2.0); ALKALINE PHOSPHATASE 46 IU/L (40-150); BLOOD UREA NITROGEN 21 mg/dL (7-26); BUN/CREATININE RATIO 23 (6-25); CALCIUM 8.6 mg/dL (8.4-10.2); CARBON DIOXIDE 20 mmol/L (22-29); CHLORIDE 106 mmol/L (98-107); EST GLOMERULAR FILTRATION RATE > 60 ML/MIN (60-); GLUCOSE 110 mg/dL (74-118); SODIUM 140 mmol/L (136-145)
--- OUTSIDE RECORDS SUMMARY | 2020-07-20 01:10 | XMS REPORT | Continuity of Care Document ---
Author Author [facility] t Organization [facility] Address [address] [place] [address] Phone Unavailable Care Team Providers Care Reports Analyst Name Role Phone NONSTAFF PCP Unavailable Rayne KRISHNAMURTHY Attphys Unavailable Amanda ESCOBAR Attphys Unavailable Erika WELSH Attphys Unavailable Payers Payer Name Policy Type Policy Number Effective Date Expiration Date Erika David [id number] [facility] Covid19 Hrsa Uninsured [id number] [facility] Covid 19 Hrsa Uninsured [id number] [facility] [id number] [facility] Problems Condition Name Condition Details Condition Category Status Onset Date Resolution Date Last Treatment Date Treating Clinician Comments Source Cellulitis Cellulitis Problem Active 2015-05-13 00:00:00 [facility] Osteomyelitis Osteomyelitis Problem Active 2015-05-13 00:00:00 [facility] New onset of congestive heart failure New onset of congestiv e heart failure Problem Active [facility] Respiratory distress Respiratory distress Problem Active [facility] Chest pain Problem Active [facility] Gastritis Problem Active [facility] Vomiting and diarrhea Problem Active [facility] Allergies, Adverse Reactions, Alerts This patient has no known allergies or adverse reactions. Social History Social Habit Start Date Stop Date Quantity Comments Source Sex Assigned At 1960 00:00:00 1960 00:00:00 Male [facility] Medications Ordered Medication Name Filled Medication Name Start Date Stop Da te Current Medication? Ordering Clinician Indication Dosage Frequency Signature (SIG) Comments Components Source Famotidine (Pepcid) 20 Mg TABLET Famotidine (Pepcid) 20 Mg T ABLET 2020-05-27 06:50:00 Yes 20 Before Breakfast [facility] Aspirin (Aspirin Ec) 81 Mg TABLET. Aspirin (Aspirin Ec) 81 Mg TABLET. 2020-03-20 17:32:00 Yes 81 Daily [facility] Carvedilol (Coreg) 12.5 Mg TAB Carvedilol (Coreg) 12.5 Mg TA B 2020-03-20 17:32:00 Yes 6.25 Twice A Day [facility] Furosemide (Lasix) 40 Mg TABLET Furosemide (Lasix) 40 Mg TAB LET 2020-03-20 17:32:00 Yes 40 Daily [facility] Losartan Potassium Losartan Potassium 2020-03-20 17:32:00 Yes 25 Twice A Day [facility] Simvastatin Simvastatin 2020-03-20 17:32:00 Yes 20 T mariaelena At 9:00PM [facility] Carvedilol (Coreg) 12.5 Mg TAB Carvedilol (Coreg) 12.5 Mg TAB 2020-03-20 00:00:00 No 6.25 Twice A Day [facility] Furosemide (Lasix) 40 Mg TABLET Furosemide (Lasix) 40 Mg TABLET 2020-03-20 00:00:00 No 40 Daily [facility] Losartan Potassium Losartan Potassium 2020-03-20 00:00:00 No 25 Twice A Day [facility] Vital Signs Vital Name Observation Time Observation Value Comments Source Weight 2020-06-19 15:03:00 197 [lb_av] [facility] BMI (Body Mass Index) 2020-06-19 15:03:00 28.3 kg/m2 [facility] Body Temperature 2020-05-27 19:30:00 97.4 [degF] [facility] BMI (Body Mass Index) 2020-05-27 02:35:00 28.3 kg/m2 [facility] Weight 2020-05-26 23:33:00 197 [lb_av] [facility] Weight 2020-04-11 02:29:00 197 [lb_av] [facility] BMI (Body Mass Index) 2020-04-11 02:29:00 28.3 kg/m2 [facility] Body Temperature 2020-03-20 16:00:00 97.4 [degF] [facility] BMI (Body Mass Index) 2020-03-18 18:00:00 28.3 kg/m2 [facility] Weight 2020-03-18 13:03:00 197 [lb_av] [facility] Procedures Procedure Date / Time Performed Performing Clinician Sour e Computed tomography of abdomen and pelvis with contrast 00:00:00 [facility] Plan of Care Planned Activity Planned Date Details Comments Source Instructions Abdominal Pain - Adult [facility] Encounters Start Date/Time End Date/Time Encounter Type Admission Type [facility] Care Department Encounter ID Source 2020-06-19 15:37:00 2020-06-19 18:11:00 Departed Emergency Room 1 YESSY YAZAN [facility] [id number] [facility] 2020-05-27 01:12:00 2020-05-27 19:56:00 Discharged Inpatient (obs) 1 ESCOBAR [facility] [id number] [facility] 2020-04-21 18:58:00 2020-04-21 18:58:00 Registered Emergency Room [facility] [id number] [facility] dical [place] 2020-04-11 02:08:00 2020-04-11 05:34:00 Departed Emergency Room 1 ESCOBAR [facility] [id number] [facility] 2020-03-20 15:47:00 2020-03-20 18:50:00 Discharged Inpatient 1 VASILIY WELSH [facility] [id number] [facility] 2019-07-20 02:41:00 2019-07-21 13:45:00 Discharged Inpatient 1 KINDRA ESCOBAR [facility] [id number] [facility] Results Test Description Test Time Test Comments Results Result Comments Source CT ABDOMEN/PELVIS W 2020-06-19 16:37:00 [facility] [address] [address] Patient Name: BRIAN RODRIGUEZ MR #: [id number] : 1960 Age/Sex: 59/M Req #: [id number] Adm Physician: Ordered by: YAZAN KRISHNAMURTHY MD Report #: [id number] Location: ER Room/Bed: Procedure: [id number] CT/CT ABDOMEN/PELVIS W Exam Date: 06/19/20 Exam Time: 1612 REPORT STATUS: Signed EXAM: CT Abdomen and Pelvis WITH intravenous contrast INDICATION: Abdominal pain COMPARISON: Chest radiograph of 05/27/2020 TECHNIQUE: Abdomen and pelvis were scanned utilizing a multidetector helical scanner from the lung base to the pubic symphysis after administration of IV contrast. Coronal and sagittal reformations were obtained. Routine protocol was performed. Scan was performed during portal venous phase. IV CONTRAST: 100mL of Isovue 370 ORAL CONTRAST: Water RADIATION DOSE: Total DLP: 701 mGy*cm Dose modulation, iterative reconstruction, and/or weight based adjustment of the mA/kV was utilized to reduce the radiation dose to as low as reasonably achievable. FINDINGS: LOWER THORAX: Normal. HEPATOBILIARY: Diffuse hepatic steatosis. No focal liver lesion. No biliary ductal dilation. Unremarkable gallbladder. SPLEEN: Scattered subcentimeter calcified granulomas in the nonenlarged spleen. PANCREAS: No focal masses or ductal dilatation. ADRENALS: No adrenal nodules. Calcification associated with the right adrenal gland may be related to remote adrenal hemorrhage. KIDNEYS/URETERS: No hydronephrosis, renal calculi, or solid mass lesions. Right renal cysts measure up to 1.6 cm. PELVIC ORGANS/BLADDER: Unremarkable. PERITONEUM / RETROPERITONEUM: No free air or fluid. LYMPH NODES: No lymphadenopathy. VESSELS: Scattered atherosclerotic calcifications of the nonaneurysmal abdominal aorta and major branches. GI TRACT: Wall thickening of the antrum and distal body of the stomach up to 1.8 cm.. No bowel obstruction. Mild diverticulosis without CT evidence of diverticulitis. Normal appendix. BONES AND SOFT TISSUES: No acute osseous injury. No suspicious lytic or blastic lesions. IMPRESSION: Prominent wall thickening of the antrum and distal body of the stomach may reflect gastritis or alternatively a neoplastic etiology such as lymphoma. Recommend further evaluation with upper endoscopy. Signed by: Olman Omalley MD on 06/19/2020 4:43 PM Dictated By: OLMAN OMALLEY MD 42 Transcribed By: ALISSON on 06/19/201642 COPY TO: YAZAN KRISHNAMURTHY MD Urine color determination 2020-06-19 16:05:00 Test Item Urine Color (test code = 5778-6) YELLOW YELLOW [facility] [id number] 16:05:00* Test Item Value Reference Range Interpretation Comments Urine Clarity (test code = 44246-1) [facility] Urine by Test strip 2020-06-19 16:05:00* Test Item Value Reference Range Interpretation Comments Urine Specific [place] (test code = 5811-5) >=1.030 1.010-1.02 5 [facility] pH measurement by automated test [id number] 16:05:00* Test Item Value Reference Range Interpretation Comments Urine pH (test code = 05929-3) 5 5-7 [facility] leukocyte esterase detection by [id number] 16:05:00* Test Item Value Reference Range Interpretation Comments Urine Leukocyte Esterase (test code = 5799-2) NEGATIVE NEGATIVE [facility] nitrite fmkpzrxdl2687-13-35 16:05:00* Test Item Value Reference Range Interpretation Comments Urine Nitrite (test code = 87379-9) NEGATIVE NEGATIVE [facility] protein measurement by test strip (mass/volume)2020-06-19 16:05:00* Test Item Value Reference Range Interpretation Comments Urine Protein (test code = 5804-0) NEGATIVE NEGATIVE [facility] glucose [id number] 16:05:00* Test Item Value Reference Range Interpretation Comments Urine Glucose (UA) (test code = 2349-9) NEGATIVE NEGATIVE [facility] ketones detection by automated test baddm7476-12-89 16:05:00* Test Item Value Reference Range Interpretation Comments Urine Ketones (test code = 66925-7) NEGATIVE NEGATIVE [facility] opiates screening [id number] 16:05:00* Test Item Value Reference Range Interpretation Comments Urine Opiates Screen (test code = 09256-7) NEGATIVE NEGATIVE ALL TESTS PERFORMED MANUALLY ON [employer] TOX/SEE TESTColumbus Community HospitalBarbiturates screen, kjbyb9416-81-05 16:05:00* Test Item Value Reference Range Interpretation Comments Urine Barbiturates Screen (test code = 743628543) NEGATIVE NEGA TIVE [facility] HospitalU[facility] phencyclidine detection by screening [id number] 16:05:00* Test Item Value Reference Range Interpretation Comments Urine Phencyclidine Screen (test code = 22248-4) NEGATIVE NEGAT MODESTO [facility] HospitalUrine amphetamines detection by screen method > 1000 ng/[id number] 16:05:00* Test Item Value Reference Range Interpretation Comments Urine Amphetamines Screen (test code = 60755-2) POSITIVE NEGATI VE This test provides only a screen. Positive results should be repeated by a confi rmatory test.[facility] HospitalFluoroscopic procedure less than one hour fvzscaos5741-98-88 16:05:00* Test Item Value Reference Range Interpretation Comments Urine Methamphetamines Screen (test code = Urine Metha mphetamines Screen) POSITIVE NEGATIVE This test provides only a screen. Positive results should be repeated by a confi rmatory test.[facility] HospitalUrine benzodiazepines detection by screening itmtvf3366-37-40 16:05:00* Test Item Value Reference Range Interpretation Comments Urine Benzodiazepines Screen (test code = 84292-6) NEGATIVE NEG ATIVE [facility] HospitalU[facility] cocaine measurement (mass/volume) 2020-06-19 16:05:00* Test Item Value Reference Range Interpretation Comments Urine Cocaine Screen (test code = 3398-5) NEGATIVE NEGATIVE [facility] HospitalUrine cannabinoids detection by screening pveltg2332-40-65 16:05:00* Test Item Value Reference Range Interpretation Comments Urine Cannabinoids Screen (test code = 11517-6) POSITIVE NEGATI VE THESE RESULTS ARE FOR MEDICAL TREATMENT ONLYTHIS REPORT CONTAINS UNCONFIR MED SCREENING RESULTS*POSITIVE RESULTS WILL BE CONFIRMED BY REFERENCE LAB UPON R EQUEST CUT-OFFDRUG CLASS CONCENTRATION ng/mLAmphetamines 1000Methamphetamines 1000Cocaine 300Opiate 300Phencyc lidine 25Cannabinoid 50Barbiturates 300Benzodiazepine 300Methadone 300 This test p rovides only a screen. Positive results should be repeated by a confirmatory kym t.[facility] HospitalUrine methadone ylalfk5711-48-71 16:05:00* Test Item Value Reference Range Interpretation Comments Urine Methadone Screen (test code = 85586-1) NEGATIVE NEGATIVE THESE RESULTS ARE FOR MEDICAL TREATMENT ONLYTHIS REPORT CONTAINS UNCONFIR MED SCREENING RESULTS*POSITIVE RESULTS WILL BE CONFIRMED BY REFERENCE LAB UPON R EQUEST CUT-OFFDRUG CLASS CONCENTRATION ng/mLAmphetamines 1000Methamphetamines 1000Cocaine Metabolite 300Opiate 300Phencyc lidine 25Cannabinoid 50Barbiturates 300Benzodiazepine 300Methadone 300[facility] urobilinogen measurement by test strip (mass/volume)2020-06-19 16:05:00* Test Item Value Reference Range Interpretation Comments Urine Urobilinogen (test code = 95634-6) 0.2 0.2-1 [facility] HospitalU[facility] total bilirubin measurement (mass/volume)2020-06-19 16:05:00* Test Item Value Reference Range Interpretation Comments Urine Bilirubin (test code = 1978-6) NEGATIVE NEGATIVE [facility] HospitalUrine erythrocytes margwteht1952-29-29 16:05:00* Test Item Value Reference Range Interpretation Comments Urine Blood (test code = 46603-3) 1+ NEGATIVE [facility] HospitalAutomated urine sediment leukocyte count by microscopy (number/high power field)2020-06-19 16:05:00* Test Item Value Reference Range Interpretation Comments Urine WBC (test code = 5821-4) 0-5 0-5 [facility] HospitalErythrocytes detection in urine sediment by light hrylggxxwq0572-91-90 16:05:00* Test Item Value Reference Range Interpretation Comments Urine RBC (test code = 31161-4) 0-5 0-5 [facility] HospitalBacteria detection in urine sediment by light aojhjbtwrr9102-15-25 16:05:00* Test Item Value Reference Range Interpretation Comments Urine Bacteria (test code = 18009-3) MODERATE NONE [facility] HospitalEpithelial cells detection in urine sediment by light nsewptdhhj9883-83-80 16:05:00* Test Item Value Reference Range Interpretation Comments Urine Epithelial Cells (test code = 90969-2) FEW NONE [facility] HospitalHyaline casts detection in urine sediment by light yuswwhiaqk9379-68-37 16:05:00* Test Item Value Reference Range Interpretation Comments Urine Hyaline Casts (test code = 71394-7) >15 0-1 [facility] HospitalBlood leukocytes automated count (number/volume)2020-06-19 15:15:00* Test Item Value Reference Range Interpretation Comments White Blood Count (test code = 6690-2) 10.19 4.8-10.8 [facility] HospitalBlood erythrocytes automated count (number/volume)2020-06-19 15:15:00* Test Item Value Reference Range Interpretation Comments Red Blood Count (test code = 789-8) 4.64 4.3-5.7 [facility] HospitalBlood hemoglobin measurement (moles/volume)2020-06-19 15:15:00* Test Item Value Reference Range Interpretation Comments Hemoglobin (test code = 78878-1) 14.1 14.0-18.0 [facility] HospitalAutomated blood hematocrit (volume fraction)2020-06-19 15:15:00* Test Item Value Reference Range Interpretation Comments Hematocrit (test code = 4544-3) 41.5 38.2-49.6 [facility] HospitalAutomated erythrocyte mean corpuscular jinrml1384-03-27 15:15:00* Test Item Value Reference Range Interpretation Comments Mean Corpuscular Volume (test code = 787-2) 89.4 81-99 [facility] HospitalAutomated erythrocyte mean corpuscular hemoglobin (mass per erythrocyte)2020-06-19 15:15:00* Test Item Value Reference Range Interpretation Comments Mean Corpuscular Hemoglobin (test code = 785-6) 30.4 28-32 [facility] HospitalAutomated erythrocyte mean corpuscular hemoglobin concentration measurement (mass/volume)2020-06-19 15:15:00* Test Item Value Reference Range Interpretation Comments Mean Corpuscular Hemoglobin Concent (test code = 786-4) 34.0 31-35 [facility] HospitalRDW GueNe-Kdr9655-90-12 15:15:00* Test Item Value Reference Range Interpretation Comments Red Cell Distribution Width (test code = 55063-6) 13.0 11.7 -14.4 [facility] HospitalAutatrium health kannapolised blood platelet count (count/volume)2020-06-19 15:15:00* Test Item Value Reference Range Interpretation Comments Platelet Count (test code = 777-3) 239 140-360 [facility] HospitalAutomated blood segmented neutrophil count as percentage of total rszskliuhy3902-59-25 15:15:00* Test Item Value Reference Range Interpretation Comments Neutrophils (%) (Auto) (test code = 54425-7) 72.9 38.7-80.0 [facility] HospitalAutomated blood lymphocyte count as percentage ot total qxmkvrwanz9733-95-05 15:15:00* Test Item Value Reference Range Interpretation Comments Lymphocytes (%) (Auto) (test code = 736-9) 17.3 18.0-39.1 [facility] HospitalAutomated blood monocyte count as percentage of total oaozrkimbs1054-39-61 15:15:00* Test Item Value Reference Range Interpretation Comments Monocytes (%) (Auto) (test code = 5905-5) 7.9 4.4-11.3 [facility] HospitalAutomated blood eosinophil count as percentage of total jpnocvtboo0212-57-17 15:15:00* Test Item Value Reference Range Interpretation Comments Eosinophils (%) (Auto) (test code = 713-8) 0.9 0.0-6.0 [facility] HospitalAutomated blood basophil count as percentage of total zgphrkvfqd2449-43-98 15:15:00* Test Item Value Reference Range Interpretation Comments Basophils (%) (Auto) (test code = 706-2) 0.4 0.0-1.0 [facility] HospitalFluoroscopic procedure less than one hour lchtqpmf6814-77-17 15:15:00* Test Item Value Reference Range Interpretation Comments IM GRANULOCYTES % (test code = IM GRANULOCYTES %) 0.6 0.0- 1.0 [facility] HospitalAutomated blood neutrophil count 2020-06-19 15:15:00* Test Item Value Reference Range Interpretation Comments Neutrophils # (Auto) (test code = 751-8) 7.4 2.1-6.9 [facility] HospitalBlood lymphocytes count (number/volume) 2020-06-19 15:15:00* Test Item Value Reference Range Interpretation Comments Lymphocytes # (Auto) (test code = 87247-2) 1.8 1.0-3.2 [facility] HospitalBlood monocytes automated count (number/volume)2020-06-19 15:15:00* Test Item Value Reference Range Interpretation Comments Monocytes # (Auto) (test code = 742-7) 0.8 0.2-0.8 [facility] HospitalAutomated blood eosinophil count 2020-06-19 15:15:00* Test Item Value Reference Range Interpretation Comments Eosinophils # (Auto) (test code = 711-2) 0.1 0.0-0.4 [facility] HospitalAutomated blood basophil count (count/volume)2020-06-19 15:15:00* Test Item Value Reference Range Interpretation Comments Basophils # (Auto) (test code = 704-7) 0.0 0.0-0.1 [facility] HospitalFluoroscopic procedure less than one hour jhudcubm2657-62-02 15:15:00* Test Item Value Reference Range Interpretation Comments Absolute Immature Granulocyte (auto (kym t code = Absolute Immature Granulocyte (auto) 0.06 0-0.1 [facility] HospitalProthrombin time (PT) in platelet poor plasma by coagulation vvcxu7133-04-42 15:15:00* Test Item Value Reference Range Interpretation Comments Prothrombin Time (test code = 5902-2) 12.7 11.9-14.5 [facility] HospitalINR in Platelet poor plasma by Coagulation ixxod0051-44-29 15:15:00* Test Item Value Reference Range Interpretation Comments Prothromb Time International Ratio (test code = 6301-6) 0.91 Oral Anticoagulant Therapy INR Values:1. Low Intensity Therapy 1.5 - 2.02 . Moderate Intensity Therapy 2.0 - 3.03. High Intensity Therapy(1) 2.5 - 3. 54. High Intensity Therapy(2) 3.0 - 4.05. Panic Value INR > 5.0 [facility] HospitalActivated partial thromboplastin time (aPTT) in platelet poor plasma by coagulation kmihk3195-11-38 15:15:00* Test Item Value Reference Range Interpretation Comments Activated Partial Thromboplast Time (test code = 36504-6) 27.1 23.8-35.5 [facility] plasma sodium measurement (moles/volume)2020-06-19 15:15:00* Test Item Value Reference Range Interpretation Comments Sodium Level (test code = 2951-2) 139 136-145 [facility] Lake[facility]um or plasma potassium measurement (moles/volume)2020-06-19 15:15:00* Test Item Value Reference Range Interpretation Comments Potassium Level (test code = 2823-3) 3.5 3.5-5.1 [facility] Lake[facility]um or plasma chloride measurement (moles/volume)2020-06-19 15:15:00* Test Item Value Reference Range Interpretation Comments Chloride Level (test code = 2075-0) 105 98-107 [facility] Lakeerum or plasma carbon dioxide, total measurement (moles/volume)2020-06-19 15:15:00* Test Item Value Reference Range Interpretation Comments Carbon Dioxide Level (test code = 2028-9) 23 22-29 [facility] Lake[facility]um or plasma anion pzh0137-89-58 15:15:00* Test Item Value Reference Range Interpretation Comments Anion Gap (test code = 79086-2) 14.5 8-16 [facility] Lake[facility]um or plasma urea nitrogen measurement (mass/volume)2020-06-19 15:15:00* Test Item Value Reference Range Interpretation Comments Blood Urea Nitrogen (test code = 3094-0) 15 7-26 [facility] Lakeerum or plasma creatinine measurement (mass/volume)2020-06-19 15:15:00* Test Item Value Reference Range Interpretation Comments Creatinine (test code = 2160-0) 0.76 0.72-1.25 [facility] Lake[facility]um or plasma urea nitrogen/creatinine mass saauo0695-41-65 15:15:00* Test Item Value Reference Range Interpretation Comments BUN/Creatinine Ratio (test code = 3097-3) 20 6-25 [facility] HospitalEstimated glomerular filtration rate (GFR) ghnejxilgghff5359-64-01 15:15:00* Test Item Value Reference Range Interpretation Comments Estimat Glomerular Filtration Rate (test code = 865395080) > 60 >60 Ranges were taken from the National Kidney Disease Education Program and the [employer] literature.Reference ranges:60 or greater: Iptiao35-94 ( for 3 consecutive months): Chronic kidney disease 15 or less: Kidney failureColumbus Community HospitalGlucose tlccuzblpkr0148-04-43 15:15:00* Test Item Value Reference Range Interpretation Comments Glucose Level (test code = FRU6773) 135 74-118 [facility] Lake[facility] or plasma calcium measurement (mass/volume)2020-06-19 15:15:00* Test Item Value Reference Range Interpretation Comments Calcium Level (test code = 17777-3) 9.3 8.4-10.2 [facility] or plasma total bilirubin measurement (mass/volume)2020-06-19 15:15:00* Test Item Value Reference Range Interpretation Comments Total Bilirubin (test code = 1975-2) 0.6 0.2-1.2 [facility] HospitalFluoroscopic procedure less than one hour cldwvjue9241-06-46 15:15:00* Test Item Value Reference Range Interpretation Comments Aspartate Amino Transf (AST/SGOT) (test code = Aspartate Amino Transf (AST/SGOT)) 20 5-34 [facility] Lake[facility]um or plasma alanine aminotransferase measurement (enzymatic activity/volume)2020-06-19 15:15:00* Test Item Value Reference Range Interpretation Comments Alanine Aminotransferase (ALT/SGPT) (test code = 1742-6) 24 0-55 [facility] Lake[facility]um or plasma protein measurement (mass/volume)2020-06-19 15:15:00* Test Item Value Reference Range Interpretation Comments Total Protein (test code = 2885-2) 7.6 6.5-8.1 [facility] or plasma albumin measurement (mass/volume)2020-06-19 15:15:00* Test Item Value Reference Range Interpretation Comments Albumin (test code = 1751-7) 4.3 3.5-5.0 [facility] HospitalPlasma globulin measurement (mass/volume) 2020-06-19 15:15:00* Test Item Value Reference Range Interpretation Comments Globulin (test code = 13212-2) 3.3 2.3-3.5 [facility]um or plasma albumin/globulin mass rpevx7227-69-72 15:15:00* Test Item Value Reference Range Interpretation Comments Albumin/Globulin Ratio (test code = 1759-0) 1.3 0.8-2.0 [facility] or plasma alkaline phosphatase measurement (enzymatic activity/volume)2020-06-19 15:15:00* Test Item Value Reference Range Interpretation Comments Alkaline Phosphatase (test code = 6768-6) 48 40-150 [facility] Lake[facility]um or plasma creatine kinase measurement (enzymatic activity/volume)2020-06-19 15:15:00* Test Item Value Reference Range Interpretation Comments Creatine Kinase (test code = 2157-6) 122 30-200 [facility] plasma creatine kinase MB measurement (mass/volume)2020-06-19 15:15:00* Test Item Value Reference Range Interpretation Comments Creatine Kinase MB (test code = 24241-4) 3.10 0-5.0 [facility] measurement by highly sensitive enzyme mjctocjynia9641-69-96 15:15:00* Test Item Value Reference Range Interpretation Comments Troponin I (test code = 08332-4) 0.003 0-0.300 [facility] plasma amylase measurement (enzymatic activity/volume)2020-06-19 15:15:00* Test Item Value Reference Range Interpretation Comments Amylase Level (test code = 1798-8) 20 25-125 [facility] plasma lipase measurement (enzymatic activity/volume)2020-06-19 15:15:00* Test Item Value Reference Range Interpretation Comments Lipase (test code = 3040-3) 15 8-78 [facility] or plasma creatine kinase measurement (enzymatic activity/volume)2020-05-27 16:12:00* Test Item Value Reference Range Interpretation Comments Creatine Kinase (test code = 2157-6) 123 30-200 [facility] or plasma creatine kinase MB measurement (mass/volume)2020-05-27 16:12:00* Test Item Value Reference Range Interpretation Comments Creatine Kinase MB (test code = 73194-4) 2.50 0-5.0 [facility] HospitalTrop[facility] I measurement by highly sensitive enzyme wvhgetvncrt6863-09-98 16:12:00* Test Item Value Reference Range Interpretation Comments Troponin I (test code = 98420-5) 0.022 0-0.300 [facility] HospitalFibrin D-dimer DDU measurement in platelet poor plasma (mass/volume)2020-05-27 07:08:00* Test Item Value Reference Range Interpretation Comments D-Dimer Quantitative (PE/DVT) (test code = 32536-2) < 100 0- 400 The Triage D-Dimer Test has not been evaluated for use as sole evidence for the presence or absence of PE or DVT. As with all in vitro diagnostic tests, the te st results should be interpreted by the physician in conjunction with clinical f indings and other test results.Test results are reported in D-dimer units.[facility] or plasma triglyceride measurement (mass/volume)2020-05-27 07:08:00* Test Item Value Reference Range Interpretation Comments Triglycerides Level (test code = 2571-8) 87 0-149 [facility] or plasma cholesterol measurement (mass/volume)2020-05-27 07:08:00* Test Item Value Reference Range Interpretation Comments Cholesterol Level (test code = 2093-3) 148 0-199 Less than 200 mg/dL Low Qqra252 - 239 mg/dL Borderline Qdfe875 m g/dl and greater High Risk [facility] cholesterol in LDL measurement (mass/volume) 2020-05-27 07:08:00* Test Item Value Reference Range Interpretation Comments LDL Cholesterol (test code = 2089-1) 90 60-130 [facility] or plasma cholesterol in HDL measurement (mass/volume)2020-05-27 07:08:00* Test Item Value Reference Range Interpretation Comments HDL Cholesterol (test code = 2085-9) 41 40-60 [facility] or plasma total cholesterol/cholesterol in HDL mass altgs7889-11-31 07:08:00* Test Item Value Reference Range Interpretation Comments Cholesterol/HDL Ratio (test code = 9830-1) 3.6 3.9-4.7 [facility] HospitalFibrin D-dimer DDU measurement in platelet poor plasma (mass/volume)2020-05-27 07:08:00* Test Item Value Reference Range Interpretation Comments D-Dimer Quantitative (PE/DVT) (test code = 65223-4) < 100 0- 400 The Triage D-Dimer Test has not been evaluated for use as sole evidence for the presence or absence of PE or DVT. As with all in vitro diagnostic tests, the te st results should be interpreted by the physician in conjunction with clinical f indings and other test results.Test results are reported in D-dimer units.[facility] or plasma triglyceride measurement (mass/volume)2020-05-27 07:08:00* Test Item Value Reference Range Interpretation Comments Triglycerides Level (test code = 2571-8) 87 0-149 [facility] or plasma cholesterol measurement (mass/volume)2020-05-27 07:08:00* Test Item Value Reference Range Interpretation Comments Cholesterol Level (test code = 2093-3) 148 0-199 Less than 200 mg/dL Low Mdsq097 - 239 mg/dL Borderline Wcmc154 m g/dl and greater High Risk [facility] cholesterol in LDL measurement (mass/volume) 2020-05-27 07:08:00* Test Item Value Reference Range Interpretation Comments LDL Cholesterol (test code = 2089-1) 90 60-130 [facility] plasma cholesterol in HDL measurement (mass/volume)2020-05-27 07:08:00* Test Item Value Reference Range Interpretation Comments HDL Cholesterol (test code = 2085-9) 41 40-60 [facility] or plasma total cholesterol/cholesterol in HDL mass afpid2676-27-46 07:08:00* Test Item Value Reference Range Interpretation Comments Cholesterol/HDL Ratio (test code = 9830-1) 3.6 3.9-4.7 [facility] HospitalFluoroscopic procedure less than one hour ivzqpjpv5438-68-06 02:00:00* Test Item Value Reference Range Interpretation Comments [...] complexity tests.Testing performed by Clinical Pathology Labor [address] [phone] Director: Jeison Rayo M.D.CLIA # [id number] [facility] SINGLE (PORTABLE)2020-05-27 00:58:00 [place] [address] Patient Name: BRIAN RODRIGUEZ MR #: [id number] : 1960 Age/Sex: 59/M Req #: [id number] Adm Physician: Ordered by: KINDRA ESCOBAR MD Report #: [id number] Location: ER Room/Bed: Procedure: [id number] DX/CHEST SI NGLE (PORTABLE) Exam Date: 05/26/20 [...] Count (test code = 6690-2) 7.61 4.8-10.8 [facility] HospitalBlood erythrocytes automated count (number/volume)2020-05-26 23:46:00* Test Item Value Reference Range Interpretation Comments Red Blood Count (test code = 789-8) 4.09 4.3-5.7 [facility] HospitalBlood hemoglobin measurement (moles/volume)2020-05-26 23:46:00* Test Item Value Reference Range Interpretation Comments Hemoglobin (test code = 54102-3) 12.4 14.0-18.0 [facility] HospitalAutomated blood hematocrit (volume fraction)2020-05-26 23:46:00* Test Item Value Reference Range Interpretation Comments Hematocrit (test code = 4544-3) 36.8 38.2-49.6 [facility] HospitalAutomated erythrocyte mean corpuscular jwkqmd8673-28-80 23:46:00* Test Item Value Reference Range Interpretation Comments Mean Corpuscular Volume (test code = 787-2) 90.0 81-99 [facility] HospitalAutomated erythrocyte mean corpuscular hemoglobin (mass per erythrocyte)2020-05-26 23:46:00* Test Item Value Reference Range Interpretation Comments Mean Corpuscular Hemoglobin (test code = 785-6) 30.3 28-32 [facility] HospitalAutomated erythrocyte mean corpuscular hemoglobin concentration measurement (mass/volume)2020-05-26 23:46:00* Test Item Value Reference Range Interpretation Comments Mean Corpuscular Hemoglobin Concent (test code = 786-4) 33.7 31-35 [facility] HospitalRDW IpsUa-Jkl7940-80-19 23:46:00* Test Item Value Reference Range Interpretation Comments Red Cell Distribution Width (test code = 16536-5) 12.0 11.7 -14.4 [facility] HospitalAutomated blood platelet count (count/volume)2020-05-26 23:46:00* Test Item Value Reference Range Interpretation Comments Platelet Count (test code = 777-3) 206 140-360 [facility] HospitalAutomated blood segmented neutrophil count as percentage of total fpfearamdm1291-67-22 23:46:00* Test Item Value Reference Range Interpretation Comments Neutrophils (%) (Auto) (test code = 27784-8) 43.3 38.7-80.0 [facility] HospitalAutomated blood lymphocyte count as percentage ot total nlgknbreln0849-03-79 23:46:00* Test Item Value Reference Range Interpretation Comments Lymphocytes (%) (Auto) (test code = 736-9) 45.1 18.0-39.1 [facility] HospitalAutomated blood monocyte count as percentage of total yfbtynntzj6201-96-11 23:46:00* Test Item Value Reference Range Interpretation Comments Monocytes (%) (Auto) (test code = 5905-5) 7.0 4.4-11.3 [facility] HospitalAutomated blood eosinophil count as percentage of total vzxepycfci1535-89-19 23:46:00* Test Item Value Reference Range Interpretation Comments Eosinophils (%) (Auto) (test code = 713-8) 3.4 0.0-6.0 [facility] HospitalAutomated blood basophil count as percentage of total kwtyctpbyl9134-77-40 23:46:00* Test Item Value Reference Range Interpretation Comments Basophils (%) (Auto) (test code = 706-2) 0.8 0.0-1.0 [facility] HospitalFluoroscopic procedure less than one hour iajuawhk9996-67-13 23:46:00* Test Item Value Reference Range Interpretation Comments IM GRANULOCYTES % (test code = IM GRANULOCYTES %) 0.4 0.0- 1.0 [facility] HospitalAutomated blood neutrophil count 2020-05-26 23:46:00* Test Item Value Reference Range Interpretation Comments Neutrophils # (Auto) (test code = 751-8) 3.3 2.1-6.9 [facility] HospitalBlood lymphocytes count (number/volume) 2020-05-26 23:46:00* Test Item Value Reference Range Interpretation Comments Lymphocytes # (Auto) (test code = 88693-7) 3.4 1.0-3.2 [facility] HospitalBlood monocytes automated count (number/volume)2020-05-26 23:46:00* Test Item Value Reference Range Interpretation Comments Monocytes # (Auto) (test code = 742-7) 0.5 0.2-0.8 [facility] HospitalAutomated blood eosinophil count 2020-05-26 23:46:00* Test Item Value Reference Range Interpretation Comments Eosinophils # (Auto) (test code = 711-2) 0.3 0.0-0.4 [facility] HospitalAutomated blood basophil count (count/volume)2020-05-26 23:46:00* Test Item Value Reference Range Interpretation Comments Basophils # (Auto) (test code = 704-7) 0.1 0.0-0.1 [facility] HospitalFluoroscopic procedure less than one hour phgvkuch4768-53-09 23:46:00* Test Item Value Reference Range Interpretation Comments Absolute Immature Granulocyte (auto (kym t code = Absolute Immature Granulocyte (auto) 0.03 0-0.1 [facility] HospitalProthrombin time (PT) in platelet poor plasma by coagulation mfmeu3339-48-23 23:46:00* Test Item Value Reference Range Interpretation Comments Prothrombin Time (test code = 5902-2) 12.6 11.9-14.5 [facility] HospitalINR in Platelet poor plasma by Coagulation ovacq3296-58-82 23:46:00* Test Item Value Reference Range Interpretation Comments Prothromb Time International Ratio (test code = 6301-6) 0.89 Oral Anticoagulant Therapy INR Values:1. Low Intensity Therapy 1.5 - 2.02 . Moderate Intensity Therapy 2.0 - 3.03. High Intensity Therapy(1) 2.5 - 3. 54. High Intensity Therapy(2) 3.0 - 4.05. Panic Value INR > 5.0 [facility] HospitalActivated partial thromboplastin time (aPTT) in platelet poor plasma by coagulation ctppo6223-15-11 23:46:00* Test Item Value Reference Range Interpretation Comments Activated Partial Thromboplast Time (test code = 44621-7) 28.1 23.8-35.5 [facility] plasma sodium measurement (moles/volume)2020-05-26 23:46:00* Test Item Value Reference Range Interpretation Comments Sodium Level (test code = 2951-2) 138 136-145 [facility] plasma potassium measurement (moles/volume)2020-05-26 23:46:00* Test Item Value Reference Range Interpretation Comments Potassium Level (test code = 2823-3) 3.6 3.5-5.1 [facility] plasma chloride measurement (moles/volume)2020-05-26 23:46:00* Test Item Value Reference Range Interpretation Comments Chloride Level (test code = 2075-0) 106 98-107 [facility] or plasma carbon dioxide, total measurement (moles/volume)2020-05-26 23:46:00* Test Item Value Reference Range Interpretation Comments Carbon Dioxide Level (test code = 2028-9) 21 22-29 [facility] or plasma anion pzq9884-09-07 23:46:00* Test Item Value Reference Range Interpretation Comments Anion Gap (test code = 26767-0) 14.6 8-16 [facility] plasma urea nitrogen measurement (mass/volume)2020-05-26 23:46:00* Test Item Value Reference Range Interpretation Comments Blood Urea Nitrogen (test code = 3094-0) 19 7-26 [facility] plasma creatinine measurement (mass/volume)2020-05-26 23:46:00* Test Item Value Reference Range Interpretation Comments Creatinine (test code = 2160-0) 0.83 0.72-1.25 [facility] plasma urea nitrogen/creatinine mass bpthz6703-14-99 23:46:00* Test Item Value Reference Range Interpretation Comments BUN/Creatinine Ratio (test code = 3097-3) 23 6-25 [facility] HospitalEstimated glomerular filtration rate (GFR) xlqpgtygyokiq8193-43-08 23:46:00* Test Item Value Reference Range Interpretation Comments Estimat Glomerular Filtration Rate (test code = 341437238) > 60 >60 Ranges were taken from the National Kidney Disease Education Program and the [facility] literature.Reference ranges:60 or greater: Eqwcif33-65 ( for 3 consecutive months): Chronic kidney disease 15 or less: Kidney failureColumbus Community HospitalGlucose kzlhuyhciac0457-28-31 23:46:00* Test Item Value Reference Range Interpretation Comments Glucose Level (test code = UAB8113) 119 74-118 [facility] plasma calcium measurement (mass/volume)2020-05-26 23:46:00* Test Item Value Reference Range Interpretation Comments Calcium Level (test code = 57707-5) 8.8 8.4-10.2 [facility] plasma total bilirubin measurement (mass/volume)2020-05-26 23:46:00* Test Item Value Reference Range Interpretation Comments Total Bilirubin (test code = 1975-2) 0.3 0.2-1.2 [facility] HospitalFluoroscopic procedure less than one hour msxdycbx1866-76-99 23:46:00* Test Item Value Reference Range Interpretation Comments Aspartate Amino Transf (AST/SGOT) (test code = Aspartate Amino Transf (AST/SGOT)) 18 5-34 [facility] or plasma alanine aminotransferase measurement (enzymatic activity/volume)2020-05-26 23:46:00* Test Item Value Reference Range Interpretation Comments Alanine Aminotransferase (ALT/SGPT) (test code = 1742-6) 19 0-55 [facility] or plasma protein measurement (mass/volume)2020-05-26 23:46:00* Test Item Value Reference Range Interpretation Comments Total Protein (test code = 2885-2) 7.3 6.5-8.1 [facility] plasma albumin measurement (mass/volume)2020-05-26 23:46:00* Test Item Value Reference Range Interpretation Comments Albumin (test code = 1751-7) 3.9 3.5-5.0 [facility] HospitalPlasma globulin measurement (mass/volume) 2020-05-26 23:46:00* Test Item Value Reference Range Interpretation Comments Globulin (test code = 76629-5) 3.4 2.3-3.5 [facility] or plasma albumin/globulin mass exjkx3432-54-40 23:46:00* Test Item Value Reference Range Interpretation Comments Albumin/Globulin Ratio (test code = 1759-0) 1.1 0.8-2.0 [facility] plasma alkaline phosphatase measurement (enzymatic activity/volume)2020-05-26 23:46:00* Test Item Value Reference Range Interpretation Comments Alkaline Phosphatase (test code = 6768-6) 46 40-150 [facility] HospitalBNP Ccb-yVqe0918-35-19 23:46:00* Test Item Value Reference Range Interpretation Comments B-Type Natriuretic Peptide (test code = 93608-5) 92.8 0-100 [facility]fOop9375-96-19 23:46:00* Test Item Value Reference Range Interpretation Comments B-Type Natriuretic Peptide (test code = 16610-0) 92.8 0-100 [facility]11 03:12:00 [facility] [address] [place] [address] Patient Name: BRIAN RODRIGUEZ MR #: [id number] : 1960 Age/Sex: 59/M Req #: [id number] Adm Physician: Ordered by: KINDRA ESCOBAR MD Report #: [id number] Location: ER Room/Bed: Procedure: [id number] DX/CHEST SI NGLE (PORTABLE) Exam Date: 04/11/20 [...] pulmonary process. Si gned by: Dr. Srinivasan Quevedo MD on 04/11/2020 3:13 AM Dictated By: TERRA QUEVEDO MD 2 Transcribed By: ALISSON on 04/11/20312 COPY TO: KINDRA ESCOBAR MD Blood leukocytes automated count (number/volume)2020-04-11 02:24:00 * Test Item Value Reference Range Interpretation Comments White Blood Count (test code = 6690-2) 8.32 4.8-10.8 [facility] HospitalBlood erythrocytes automated count (number/volume)2020-04-11 02:24:00* Test Item Value Reference Range Interpretation Comments Red Blood Count (test code = 789-8) 4.56 4.3-5.7 [facility] HospitalBlood hemoglobin measurement (moles/volume)2020-04-11 02:24:00* Test Item Value Reference Range Interpretation Comments Hemoglobin (test code = 60898-0) 14.2 14.0-18.0 [facility] HospitalAutomated blood hematocrit (volume fraction)2020-04-11 02:24:00* Test Item Value Reference Range Interpretation Comments Hematocrit (test code = 4544-3) 42.8 38.2-49.6 [facility] HospitalAutomated erythrocyte mean corpuscular fiifqx9565-61-14 02:24:00* Test Item Value Reference Range Interpretation Comments Mean Corpuscular Volume (test code = 787-2) 93.9 81-99 [facility] HospitalAutomated erythrocyte mean corpuscular hemoglobin (mass per erythrocyte)2020-04-11 02:24:00* Test Item Value Reference Range Interpretation Comments Mean Corpuscular Hemoglobin (test code = 785-6) 31.1 28-32 [facility] HospitalAutomated erythrocyte mean corpuscular hemoglobin concentration measurement (mass/volume)2020-04-11 02:24:00* Test Item Value Reference Range Interpretation Comments Mean Corpuscular Hemoglobin Concent (test code = 786-4) 33.2 31-35 [facility] HospitalRDW ViiBa-Wkd3174-05-04 02:24:00* Test Item Value Reference Range Interpretation Comments Red Cell Distribution Width (test code = 00682-4) 12.6 11.7 -14.4 [facility] HospitalAutomated blood platelet count (count/volume)2020-04-11 02:24:00* Test Item Value Reference Range Interpretation Comments Platelet Count (test code = 777-3) 240 140-360 [facility] HospitalAutomated blood segmented neutrophil count as percentage of total wywezizche9917-28-97 02:24:00* Test Item Value Reference Range Interpretation Comments Neutrophils (%) (Auto) (test code = 07481-3) 44.4 38.7-80.0 [facility] HospitalAutatrium health kannapolised blood lymphocyte count as percentage ot total pjfabnjlnp4550-12-17 02:24:00* Test Item Value Reference Range Interpretation Comments Lymphocytes (%) (Auto) (test code = 736-9) 42.4 18.0-39.1 [facility] HospitalAutomated blood monocyte count as percentage of total rehekyytmn1776-58-12 02:24:00* Test Item Value Reference Range Interpretation Comments Monocytes (%) (Auto) (test code = 5905-5) 8.7 4.4-11.3 [facility]ed blood eosinophil count as percentage of total pydnntmxnt7422-36-73 02:24:00* Test Item Value Reference Range Interpretation Comments Eosinophils (%) (Auto) (test code = 713-8) 3.2 0.0-6.0 [facility] HospitalAutomated blood basophil count as percentage of total orpnfbwjee3468-86-43 02:24:00* Test Item Value Reference Range Interpretation Comments Basophils (%) (Auto) (test code = 706-2) 0.8 0.0-1.0 [facility] HospitalFluoroscopic procedure less than one hour fmjybume0065-28-17 02:24:00* Test Item Value Reference Range Interpretation Comments IM GRANULOCYTES % (test code = IM GRANULOCYTES %) 0.5 0.0- 1.0 [facility] HospitalAutomated blood neutrophil count 2020-04-11 02:24:00* Test Item Value Reference Range Interpretation Comments Neutrophils # (Auto) (test code = 751-8) 3.7 2.1-6.9 [facility] HospitalBlood lymphocytes count (number/volume) 2020-04-11 02:24:00* Test Item Value Reference Range Interpretation Comments Lymphocytes # (Auto) (test code = 83408-6) 3.5 1.0-3.2 [facility] HospitalBlood monocytes automated count (number/volume)2020-04-11 02:24:00* Test Item Value Reference Range Interpretation Comments Monocytes # (Auto) (test code = 742-7) 0.7 0.2-0.8 [facility] HospitalAutomated blood eosinophil count 2020-04-11 02:24:00* Test Item Value Reference Range Interpretation Comments Eosinophils # (Auto) (test code = 711-2) 0.3 0.0-0.4 [facility] HospitalAutomated blood basophil count (count/volume)2020-04-11 02:24:00* Test Item Value Reference Range Interpretation Comments Basophils # (Auto) (test code = 704-7) 0.1 0.0-0.1 [facility] HospitalFluoroscopic procedure less than one hour haapyxos6390-36-92 02:24:00* Test Item Value Reference Range Interpretation Comments Absolute Immature Granulocyte (auto (kym t code = Absolute Immature Granulocyte (auto) 0.04 0-0.1 [facility] plasma sodium measurement (moles/volume)2020-04-11 02:24:00* Test Item Value Reference Range Interpretation Comments Sodium Level (test code = 2951-2) 141 136-145 [facility] or plasma potassium measurement (moles/volume)2020-04-11 02:24:00* Test Item Value Reference Range Interpretation Comments Potassium Level (test code = 2823-3) 4.5 3.5-5.1 [facility] or plasma chloride measurement (moles/volume)2020-04-11 02:24:00* Test Item Value Reference Range Interpretation Comments Chloride Level (test code = 2075-0) 102 98-107 [facility] or plasma carbon dioxide, total measurement (moles/volume)2020-04-11 02:24:00* Test Item Value Reference Range Interpretation Comments Carbon Dioxide Level (test code = 2028-9) 27 22-29 [facility] or plasma anion hor6605-44-46 02:24:00* Test Item Value Reference Range Interpretation Comments Anion Gap (test code = 27289-7) 16.5 8-16 [facility] plasma urea nitrogen measurement (mass/volume)2020-04-11 02:24:00* Test Item Value Reference Range Interpretation Comments Blood Urea Nitrogen (test code = 3094-0) 20 7-26 [facility] or plasma creatinine measurement (mass/volume)2020-04-11 02:24:00* Test Item Value Reference Range Interpretation Comments Creatinine (test code = 2160-0) 0.94 0.72-1.25 [facility] or plasma urea nitrogen/creatinine mass fdniv7281-80-69 02:24:00* Test Item Value Reference Range Interpretation Comments BUN/Creatinine Ratio (test code = 3097-3) 21 6-25 [facility] HospitalEstimated glomerular filtration rate (GFR) chkbtmkfapzik4811-73-29 02:24:00* Test Item Value Reference Range Interpretation Comments Estimat Glomerular Filtration Rate (test code = 546405930) > 60 >60 Ranges were taken from the National Kidney Disease Education Program and the [employer] [facility] [employer] literature.Reference ranges:60 or greater: Refgzp27-62 ( for 3 consecutive months): Chronic kidney disease 15 or less: Kidney failureColumbus Community HospitalGlucose lfhcyrudzsq1782-05-79 02:24:00* Test Item Value Reference Range Interpretation Comments Glucose Level (test code = SIL3562) 109 74-118 [facility] or plasma calcium measurement (mass/volume)2020-04-11 02:24:00* Test Item Value Reference Range Interpretation Comments Calcium Level (test code = 19999-5) 9.5 8.4-10.2 [facility] or plasma total bilirubin measurement (mass/volume)2020-04-11 02:24:00* Test Item Value Reference Range Interpretation Comments Total Bilirubin (test code = 1975-2) 0.3 0.2-1.2 [facility] HospitalFluoroscopic procedure less than one hour upbdpshf5124-57-19 02:24:00* Test Item Value Reference Range Interpretation Comments Aspartate Amino Transf (AST/SGOT) (test code = Aspartate Amino Transf (AST/SGOT)) 42 5-34 [facility] or plasma alanine aminotransferase measurement (enzymatic activity/volume)2020-04-11 02:24:00* Test Item Value Reference Range Interpretation Comments Alanine Aminotransferase (ALT/SGPT) (test code = 1742-6) 39 0-55 [facility] or plasma protein measurement (mass/volume)2020-04-11 02:24:00* Test Item Value Reference Range Interpretation Comments Total Protein (test code = 2885-2) 7.7 6.5-8.1 [facility] or plasma albumin measurement (mass/volume)2020-04-11 02:24:00* Test Item Value Reference Range Interpretation Comments Albumin (test code = 1751-7) 4.2 3.5-5.0 [facility] HospitalPlasma globulin measurement (mass/volume) 2020-04-11 02:24:00* Test Item Value Reference Range Interpretation Comments Globulin (test code = 09717-9) 3.5 2.3-3.5 [facility] or plasma albumin/globulin mass yqhcv0718-80-41 02:24:00* Test Item Value Reference Range Interpretation Comments Albumin/Globulin Ratio (test code = 1759-0) 1.2 0.8-2.0 [facility] or plasma alkaline phosphatase measurement (enzymatic activity/volume)2020-04-11 02:24:00* Test Item Value Reference Range Interpretation Comments Alkaline Phosphatase (test code = 6768-6) 57 40-150 [facility] HospitalBNP Kfo-gJhx0424-87-04 02:24:00* Test Item Value Reference Range Interpretation Comments B-Type Natriuretic Peptide (test code = 15601-3) 160.9 0-100 [facility] or plasma creatine kinase measurement (enzymatic activity/volume)2020-04-11 02:24:00* Test Item Value Reference Range Interpretation Comments Creatine Kinase (test code = 2157-6) 191 30-200 [facility] or plasma creatine kinase MB measurement (mass/volume)2020-04-11 02:24:00* Test Item Value Reference Range Interpretation Comments Creatine Kinase MB (test code = 58822-1) 3.60 0-5.0 [facility] HospitalTroponin I measurement by highly sensitive enzyme czhzstebuem1616-57-86 02:24:00* Test Item Value Reference Range Interpretation Comments Troponin I (test code = 68426-5) 0.025 0-0.300 [facility] HospitalCapillary blood glucose measurement by glucometer (mass/volume)2020-03-20 20:11:00* Test Item Value Reference Range Interpretation Comments Bedside Glucose (test code = 40181-8) 105 70-120 Meter ID: [id number] [facility] HospitalCap[facility] blood glucose measurement by glucometer (mass/volume)2020-03-20 20:11:00* Test Item Value Reference Range Interpretation Comments Bedside Glucose (test code = 98379-5) 105 70-120 Meter ID: [id number] [facility] CampusCapillary blood glucose measurement by glucometer (mass/volume)2020-03-20 20:11:00* Test Item Value Reference Range Interpretation Comments Bedside Glucose (test code = 42758-1) 105 70-120 Meter ID: [id number] [facility] HospitalBlood leukocytes automated count (number/volume)2020-03-20 07:29:00* Test Item Value Reference Range Interpretation Comments White Blood Count (test code = 6690-2) 10.33 4.8-10.8 [facility] erythrocytes automated count (number/volume)2020-03-20 07:29:00* Test Item Value Reference Range Interpretation Comments Red Blood Count (test code = 789-8) 4.09 4.3-5.7 [facility] HospitalBlood hemoglobin measurement (moles/volume)2020-03-20 07:29:00* Test Item Value Reference Range Interpretation Comments Hemoglobin (test code = 04715-8) 12.9 14.0-18.0 [facility] HospitalAutomated blood hematocrit (volume fraction)2020-03-20 07:29:00* Test Item Value Reference Range Interpretation Comments Hematocrit (test code = 4544-3) 39.7 38.2-49.6 [facility] HospitalAutomated erythrocyte mean corpuscular ssoikm7421-54-27 07:29:00* Test Item Value Reference Range Interpretation Comments Mean Corpuscular Volume (test code = 787-2) 97.1 81-99 [facility] HospitalAutomated erythrocyte mean corpuscular hemoglobin (mass per erythrocyte)2020-03-20 07:29:00* Test Item Value Reference Range Interpretation Comments Mean Corpuscular Hemoglobin (test code = 785-6) 31.5 28-32 [facility] HospitalAutomated erythrocyte mean corpuscular hemoglobin concentration measurement (mass/volume)2020-03-20 07:29:00* Test Item Value Reference Range Interpretation Comments Mean Corpuscular Hemoglobin Concent (test code = 786-4) 32.5 31-35 [facility] HospitalRDW KpzYr-Zoz7418-66-13 07:29:00* Test Item Value Reference Range Interpretation Comments Red Cell Distribution Width (test code = 88237-9) 14.1 11.7 -14.4 [facility] HospitalAutomated blood platelet count (count/volume)2020-03-20 07:29:00* Test Item Value Reference Range Interpretation Comments Platelet Count (test code = 777-3) 219 140-360 [facility] HospitalAutomated blood segmented neutrophil count as percentage of total avpxmdzxgw9598-30-47 07:29:00* Test Item Value Reference Range Interpretation Comments Neutrophils (%) (Auto) (test code = 88670-9) 67.2 38.7-80.0 [facility] HospitalAutomated blood lymphocyte count as percentage ot total dqxdjtlaqj6847-40-59 07:29:00* Test Item Value Reference Range Interpretation Comments Lymphocytes (%) (Auto) (test code = 736-9) 25.2 18.0-39.1 [facility] HospitalAutomated blood monocyte count as percentage of total ykxksvqixt2869-33-90 07:29:00* Test Item Value Reference Range Interpretation Comments Monocytes (%) (Auto) (test code = 5905-5) 5.9 4.4-11.3 [facility] HospitalAutomated blood eosinophil count as percentage of total spsdomjehj8763-58-41 07:29:00* Test Item Value Reference Range Interpretation Comments Eosinophils (%) (Auto) (test code = 713-8) 0.6 0.0-6.0 [facility] HospitalAutomated blood basophil count as percentage of total mliujyqeuo3410-89-26 07:29:00* Test Item Value Reference Range Interpretation Comments Basophils (%) (Auto) (test code = 706-2) 0.5 0.0-1.0 [facility] HospitalFluoroscopic procedure less than one hour ssrmxevz5334-26-39 07:29:00* Test Item Value Reference Range Interpretation Comments IM GRANULOCYTES % (test code = IM GRANULOCYTES %) 0.6 0.0- 1.0 [facility] HospitalAutomated blood neutrophil count 2020-03-20 07:29:00* Test Item Value Reference Range Interpretation Comments Neutrophils # (Auto) (test code = 751-8) 7.0 2.1-6.9 [facility] HospitalBlood lymphocytes count (number/volume) 2020-03-20 07:29:00* Test Item Value Reference Range Interpretation Comments Lymphocytes # (Auto) (test code = 69256-7) 2.6 1.0-3.2 [facility] HospitalBlood monocytes automated count (number/volume)2020-03-20 07:29:00* Test Item Value Reference Range Interpretation Comments Monocytes # (Auto) (test code = 742-7) 0.6 0.2-0.8 [facility] HospitalAutomated blood eosinophil count 2020-03-20 07:29:00* Test Item Value Reference Range Interpretation Comments Eosinophils # (Auto) (test code = 711-2) 0.1 0.0-0.4 [facility] HospitalAutomated blood basophil count (count/volume)2020-03-20 07:29:00* Test Item Value Reference Range Interpretation Comments Basophils # (Auto) (test code = 704-7) 0.1 0.0-0.1 [facility] HospitalFluoroscopic procedure less than one hour chbcojqk7473-26-16 07:29:00* Test Item Value Reference Range Interpretation Comments Absolute Immature Granulocyte (auto (kym t code = Absolute Immature Granulocyte (auto) 0.06 0-0.1 [facility] plasma sodium measurement (moles/volume)2020-03-20 07:29:00* Test Item Value Reference Range Interpretation Comments Sodium Level (test code = 2951-2) 139 136-145 [facility]er[facility] or plasma potassium measurement (moles/volume)2020-03-20 07:29:00* Test Item Value Reference Range Interpretation Comments Potassium Level (test code = 2823-3) 4.0 3.5-5.1 [facility] or plasma chloride measurement (moles/volume)2020-03-20 07:29:00* Test Item Value Reference Range Interpretation Comments Chloride Level (test code = 2075-0) 108 98-107 [facility]er[facility] or plasma carbon dioxide, total measurement (moles/volume)2020-03-20 07:29:00* Test Item Value Reference Range Interpretation Comments Carbon Dioxide Level (test code = 2028-9) 23 22-29 [facility] Lakeer[facility] or plasma anion ecd4077-79-37 07:29:00* Test Item Value Reference Range Interpretation Comments Anion Gap (test code = 93983-5) 12.0 8-16 [facility] or plasma urea nitrogen measurement (mass/volume)2020-03-20 07:29:00* Test Item Value Reference Range Interpretation Comments Blood Urea Nitrogen (test code = 3094-0) 22 7-26 [facility]er[facility] or plasma creatinine measurement (mass/volume)2020-03-20 07:29:00* Test Item Value Reference Range Interpretation Comments Creatinine (test code = 2160-0) 0.75 0.72-1.25 [facility] or plasma urea nitrogen/creatinine mass yfsyq2496-93-22 07:29:00* Test Item Value Reference Range Interpretation Comments BUN/Creatinine Ratio (test code = 3097-3) 29 6-25 [facility] HospitalEstimated glomerular filtration rate (GFR) bwjbmrqpfevxh0254-69-22 07:29:00* Test Item Value Reference Range Interpretation Comments Estimat Glomerular Filtration Rate (test code = 642747473) > 60 >60 Ranges were taken from the National Kidney Disease Education Program and the [facility] literature.Reference ranges:60 or greater: Bhpilz31-32 ( for 3 consecutive months): Chronic kidney disease 15 or less: Kidney failureColumbus Community HospitalGlucose oqpazjvacbx5872-36-23 07:29:00* Test Item Value Reference Range Interpretation Comments Glucose Level (test code = EYT2277) 96 74-118 [facility] or plasma calcium measurement (mass/volume)2020-03-20 07:29:00* Test Item Value Reference Range Interpretation Comments Calcium Level (test code = 13295-1) 8.4 8.4-10.2 [facility] HospitalPhosphorus cbpirvetyve5569-19-92 07:29:00 * Test Item Value Reference Range Interpretation Comments Phosphorus Level (test code = NLQ3156) 3.3 2.3-4.7 [facility] or plasma magnesium measurement (mass/volume)2020-03-20 07:29:00* Test Item Value Reference Range Interpretation Comments Magnesium Level (test code = 06960-6) 2.0 1.3-2.1 [facility] HospitalPhosphorus ebwjhdulrbc2688-42-26 07:29:00 * Test Item Value Reference Range Interpretation Comments Phosphorus Level (test code = LGX2524) 3.3 2.3-4.7 [facility] or plasma magnesium measurement (mass/volume)2020-03-20 07:29:00* Test Item Value Reference Range Interpretation Comments Magnesium Level (test code = 45214-9) 2.0 1.3-2.1 [facility] HospitalPhosphorus pcixjztfkzv9267-48-96 07:29:00 * Test Item Value Reference Range Interpretation Comments Phosphorus Level (test code = WPW4196) 3.3 2.3-4.7 [facility] or plasma magnesium measurement (mass/volume)2020-03-20 07:29:00* Test Item Value Reference Range Interpretation Comments Magnesium Level (test code = 29870-1) 2.0 1.3-2.1 [facility] HospitalPhosphorus orxmncsvafc8675-62-88 07:29:00 * Test Item Value Reference Range Interpretation Comments Phosphorus Level (test code = ZTU8140) 3.3 2.3-4.7 [facility] or plasma magnesium measurement (mass/volume)2020-03-20 07:29:00* Test Item Value Reference Range Interpretation Comments Magnesium Level (test code = 09964-4) 2.0 1.3-2.1 [facility]er[facility] or plasma creatine kinase measurement (enzymatic activity/volume)2020-03-19 16:34:00* Test Item Value Reference Range Interpretation Comments Creatine Kinase (test code = 2157-6) 63 30-200 [facility]er[facility] or plasma creatine kinase MB measurement (mass/volume)2020-03-19 16:34:00* Test Item Value Reference Range Interpretation Comments Creatine Kinase MB (test code = 62570-7) 2.50 0-5.0 [facility] HospitalTroponin I measurement by highly sensitive enzyme cvwawilraup0346-07-34 16:34:00* Test Item Value Reference Range Interpretation Comments Troponin I (test code = 86433-4) 0.032 0-0.300 [facility] or plasma total bilirubin measurement (mass/volume)2020-03-19 07:53:00* Test Item Value Reference Range Interpretation Comments Total Bilirubin (test code = 1975-2) 0.5 0.2-1.2 [facility] HospitalFluoroscopic procedure less than one hour daasrtsy2422-18-75 07:53:00* Test Item Value Reference Range Interpretation Comments Aspartate Amino Transf (AST/SGOT) (test code = Aspartate Amino Transf (AST/SGOT)) 28 5-34 [facility]er[facility] or plasma alanine aminotransferase measurement (enzymatic activity/volume)2020-03-19 07:53:00* Test Item Value Reference Range Interpretation Comments Alanine Aminotransferase (ALT/SGPT) (test code = 1742-6) 49 0-55 [facility]er[facility] or plasma protein measurement (mass/volume)2020-03-19 07:53:00* Test Item Value Reference Range Interpretation Comments Total Protein (test code = 2885-2) 7.2 6.5-8.1 [facility]er[facility] or plasma albumin measurement (mass/volume)2020-03-19 07:53:00* Test Item Value Reference Range Interpretation Comments Albumin (test code = 1751-7) 3.6 3.5-5.0 [facility] HospitalPlasma globulin measurement (mass/volume) 2020-03-19 07:53:00* Test Item Value Reference Range Interpretation Comments Globulin (test code = 38437-2) 3.6 2.3-3.5 [facility] or plasma albumin/globulin mass kkzmv4081-03-78 07:53:00* Test Item Value Reference Range Interpretation Comments Albumin/Globulin Ratio (test code = 1759-0) 1.0 0.8-2.0 [facility] or plasma alkaline phosphatase measurement (enzymatic activity/volume)2020-03-19 07:53:00* Test Item Value Reference Range Interpretation Comments Alkaline Phosphatase (test code = 6768-6) 55 40-150 [facility] HospitalFluoroscopic procedure less than one hour zhosyyjz3937-72-49 16:46:00* Test Item Value Reference Range Interpretation [...] complexity tests.Testing performed by [facility] [address] [phone] Director: Jeison Rayo M.D.[facility] # [id number] [facility] Fluoroscopic procedure less than one hour lexgqqvc7847-62-93 16:46:00* Test Item Value Reference Range Interpretation [...] complexity tests.Testing performed by [facility] [address] [phone] Director: Jeison Rayo M.D.[facility] # [id number] Community Hospital Arterial blood pH rkxwwjfrchz7760-45-06 15:48:00* Test Item Value Reference Range Interpretation Comments Arterial Blood pH (test code = 2744-1) 7.38 7.35-7.45 [facility] HospitalpCO2 RkzA8474-19-64 15:48:00* Test Item Value Reference Range Interpretation Comments Arterial Blood Partial Pressure CO2 (test code = 2019-8) 41 35-45 [facility] HospitalArterial blood bicarbonate measurement (moles/volume)2020-03-18 15:48:00* Test Item Value Reference Range Interpretation Comments Arterial Blood HCO3 (test code = 1960-4) 24 22-26 [facility] HospitalArterial blood base excess by calculation 2020-03-18 15:48:00* Test Item Value Reference Range Interpretation Comments Arterial Blood Base Excess (test code = 1925-7) -1.0 -2-3 [facility] HospitalFluoroscopic procedure less than one hour diergccb5969-79-16 15:48:00* Test Item Value Reference Range Interpretation Comments FiO2 (test code = FiO2) 32 ABG DRAWN ON RIGHT RADIAL. ON 3L NC @ 32%. DR. WELSH SEEN RESULTS.[facility] HospitalArterial blood pH mzdbhcuodkc2285-12-68 15:48:00 * Test Item Value Reference Range Interpretation Comments Arterial Blood pH (test code = 2744-1) 7.38 7.35-7.45 [facility] HospitalpCO2 XptG1634-43-32 15:48:00* Test Item Value Reference Range Interpretation Comments Arterial Blood Partial Pressure CO2 (test code = 2018-8) 41 35-45 [facility] HospitalArterial blood bicarbonate measurement (moles/volume)2020-03-18 15:48:00* Test Item Value Reference Range Interpretation Comments Arterial Blood HCO3 (test code = 1960-4) 24 - [facility] HospitalArterial blood base excess by calculation 2020-03-18 15:48:00* Test Item Value Reference Range Interpretation Comments Arterial Blood Base Excess (test code = 1925-7) -1.0 -2-3 [facility] HospitalFluoroscopic procedure less than one hour pphknspc9250-88-51 15:48:00* Test Item Value Reference Range Interpretation Comments FiO2 (test code = FiO2) 32 ABG DRAWN ON RIGHT RADIAL. ON 3L NC @ 32%. DR. WELSH SEEN RESULTS.[facility] HospitalArterial blood pH jaavmaktfwl0118-71-04 15:48:00 * Test Item Value Reference Range Interpretation Comments Arterial Blood pH (test code = 2744-1) 7.38 7.35-7.45 [facility] ShoS5827-28-94 15:48:00* Test Item Value Reference Range Interpretation Comments Arterial Blood Partial Pressure CO2 (test code = 2019-8) 41 35-45 [facility] HospitalArterial blood bicarbonate measurement (moles/volume)2020-03-18 15:48:00* Test Item Value Reference Range Interpretation Comments Arterial Blood HCO3 (test code = 1960-4) 24 - [facility] HospitalArterial blood base excess by calculation 2020-03-18 15:48:00* Test Item Value Reference Range Interpretation Comments Arterial Blood Base Excess (test code = 1925-7) -1.0 -2-3 [facility] HospitalFluoroscopic procedure less than one hour homdtiya4517-45-72 15:48:00* Test Item Value Reference Range Interpretation Comments FiO2 (test code = FiO2) 32 ABG DRAWN ON RIGHT RADIAL. ON 3L NC @ 32%. DR. WELSH SEEN RESULTS.[facility] HospitalArterial blood pH cveopsvlpcb0709-78-98 15:48:00 * Test Item Value Reference Range Interpretation Comments Arterial Blood pH (test code = 2744-1) 7.38 7.35-7.45 [facility] HospitalpCO2 DnfJ6312-21-77 15:48:00* Test Item Value Reference Range Interpretation Comments Arterial Blood Partial Pressure CO2 (test code = 2019-8) 41 35-45 [facility] HospitalArterial blood bicarbonate measurement (moles/volume)2020-03-18 15:48:00* Test Item Value Reference Range Interpretation Comments Arterial Blood HCO3 (test code = 1960-4) 24 22-26 [facility] HospitalArterial blood base excess by calculation 2020-03-18 15:48:00* Test Item Value Reference Range Interpretation Comments Arterial Blood Base Excess (test code = 1925-7) -1.0 -2-3 [facility] HospitalFluoroscopic procedure less than one hour ambewoyw9982-84-30 15:48:00* Test Item Value Reference Range Interpretation Comments FiO2 (test code = FiO2) 32 ABG DRAWN ON RIGHT RADIAL. ON 3L NC @ 32%. DR. WELSH SEEN RESULTS.[facility] HospitalCHEST SINGLE (PORTABLE)2020-03-18 14:27:00 [place] [address] Patient Name: BRIAN RODRIGUEZ MR #: [id number] : 1960 Age/Sex: 59/M Req #: [id number] Adm Physician: Ordered by: VASILIY WELSH DO Report #: [id number] Location: ER Room/Bed: Procedure: [id number] DX/CHEST SINGLE (PORTABLE) Exam Date: 03/18/20 Exam [...] 2:28 PM Dictated By: NILTON CALDWELL MD 1428 Transcr ibed By: ALISSON on 03/18/20 1428 COPY TO: VASILIY WELSH DO BNP Nlm-gIvt6341-30-11 13:35:00* Test Item Value Reference Range Interpretation Comments B-Type Natriuretic Peptide (test code = 96444-3) 326.5 0-100 [facility] HospitalThyroid Stimulating Hormone (TSH) 2019-07-21 07:53:00* Test Item Value Reference Range Interpretation Comments Thyroid Stimulating Hormone (TSH) (test code = 90687-1) 1.314 0.350-4.940 [facility] HospitalTriglycerides Rpzdk3746-57-53 07:31:00* Test Item Value Reference Range Interpretation Comments Triglycerides Level (test code = 2571-8) 79 0-149 [facility] HospitalCholesterol Veqwc7370-36-24 07:31:00* Test Item Value Reference Range Interpretation Comments Cholesterol Level (test code = 2093-3) 233 0-199 H Less than 200 mg/dL Low Hrfg633 - 239 mg/dL Borderline Cbdv414 m g/dl and greater High Risk [facility] HospitalLDL Lycwwubfrch7739-89-15 07:31:00* Test Item Value Reference Range Interpretation Comments LDL Cholesterol (test code = 2089-1) 152 60-130 H [facility] HospitalHDL Yxkvkikjuqi2187-91-99 07:31:00* Test Item Value Reference Range Interpretation Comments HDL Cholesterol (test code = 2085-9) 65 40-60 H [facility] HospitalCholesterol/HDL Cwtuc9477-20-38 07:31:00 * Test Item Value Reference Range Interpretation Comments Cholesterol/HDL Ratio (test code = 9830-1) 3.6 3.9-4.7 L [facility] Lakeodium Glgoa1306-71-26 07:09:00* Test Item Value Reference Range Interpretation Comments Sodium Level (test code = 2951-2) 137 136-145 [facility] HospitalPotassium Yonkj0366-20-34 07:09:00* Test Item Value Reference Range Interpretation Comments Potassium Level (test code = 2823-3) 3.6 3.5-5.1 [facility] HospitalChloride Nnoov0773-06-31 07:09:00* Test Item Value Reference Range Interpretation Comments Chloride Level (test code = 2075-0) 102 98-107 [facility] HospitalCarbon Dioxide Yqdrn1736-29-50 07:09:00* Test Item Value Reference Range Interpretation Comments Carbon Dioxide Level (test code = 2028-9) 26 22-29 [facility] HospitalAnion Uyd9749-17-43 07:09:00* Test Item Value Reference Range Interpretation Comments Anion Gap (test code = 37358-3) 12.6 8-16 [facility] HospitalBlood Urea Yhychmrd8468-63-95 07:09:00* Test Item Value Reference Range Interpretation Comments Blood Urea Nitrogen (test code = 3094-0) 27 7-26 H [facility] HospitalCreatinine2019-09-13 07:09:00* Test Item Value Reference Range Interpretation Comments Creatinine (test code = 2160-0) 1.00 0.72-1.25 [facility] HospitalBUN/Creatinine Pozyn3838-55-33 07:09:00* Test Item Value Reference Range Interpretation Comments BUN/Creatinine Ratio (test code = 3097-3) 27 6-25 H [facility] HospitalEstimat Glomerular Filtration Rate 2019-07-21 07:09:00* Test Item Value Reference Range Interpretation Comments Estimat Glomerular Filtration Rate (test code = 152584347) > 60 >60 Ranges were taken from the National Kidney Disease Education Program and the [facility] literature.Reference ranges:60 or greater: Mrmfdg60-51 ( for 3 consecutive months): Chronic kidney disease 15 or less: Kidney failureColumbus Community HospitalGlucose Vaemg3874-42-43 07:09:00* Test Item Value Reference Range Interpretation Comments Glucose Level (test code = TBT6291) 148 74-118 H [facility] HospitalCalcium Qeooc0001-11-26 07:09:00* Test Item Value Reference Range Interpretation Comments Calcium Level (test code = 62007-9) 9.3 8.4-10.2 [facility] HospitalTotal Gqtdnobhv5855-36-96 07:09:00* Test Item Value Reference Range Interpretation Comments Total Bilirubin (test code = 1975-2) 0.8 0.2-1.2 [facility] HospitalAspartate Amino Transf (AST/SGOT) 2019-07-21 07:09:00* Test Item Value Reference Range Interpretation Comments Aspartate Amino Transf (AST/SGOT) (test code = Aspartate Amino Transf (AST/SGOT)) 25 5-34 [facility] HospitalAlanine Aminotransferase (ALT/SGPT) 2019-07-21 07:09:00* Test Item Value Reference Range Interpretation Comments Alanine Aminotransferase (ALT/SGPT) (test code = 1742-6) 49 0-55 [facility] HospitalTotal Qtvzmcb4563-11-08 07:09:00* Test Item Value Reference Range Interpretation Comments Total Protein (test code = 2885-2) 6.9 6.5-8.1 [facility] HospitalAlbumin2019-09-13 07:09:00* Test Item Value Reference Range Interpretation Comments Albumin (test code = 1751-7) 3.5 3.5-5.0 [facility] HospitalGlobulin2019-09-13 07:09:00* Test Item Value Reference Range Interpretation Comments Globulin (test code = 90238-7) 3.4 2.3-3.5 [facility] HospitalAlbumin/Globulin Augjo0965-55-19 07:09:00 * Test Item Value Reference Range Interpretation Comments Albumin/Globulin Ratio (test code = 1759-0) 1.0 0.8-2.0 [facility] HospitalAlkaline Ghtdlnubcee9841-54-18 07:09:00* Test Item Value Reference Range Interpretation Comments Alkaline Phosphatase (test code = 6768-6) 50 40-150 [facility] HospitalWhite Blood Pxeja7360-73-93 06:40:00* Test Item Value Reference Range Interpretation Comments White Blood Count (test code = 6690-2) 12.23 4.8-10.8 H [facility] HospitalRed Blood Qvqsq0901-00-89 06:40:00* Test Item Value Reference Range Interpretation Comments Red Blood Count (test code = 789-8) 4.48 4.3-5.7 [facility] HospitalHemoglobin2019-09-13 06:40:00* Test Item Value Reference Range Interpretation Comments Hemoglobin (test code = 67573-4) 14.0 14.0-18.0 [facility]Hematocrit2019-[facility] 06:40:00* Test Item Value Reference Range Interpretation Comments Hematocrit (test code = 4544-3) 42.1 38.2-49.6 [facility] HospitalMean Corpuscular [id number] 06:40:00* Test Item Value Reference Range Interpretation Comments Mean Corpuscular Volume (test code = 787-2) 94.0 81-99 [facility]Mean Corpuscular Jpxdztsmbm4954-85-06 06:40:00* Test Item Value Reference Range Interpretation Comments Mean Corpuscular Hemoglobin (test code = 785-6) 31.3 28-32 [facility]Mean Corpuscular Hemoglobin Concent 2019-07-21 06:40:00* Test Item Value Reference Range Interpretation Comments Mean Corpuscular Hemoglobin Concent (test code = 786-4) 33.3 31-35 [facility]Red Cell Distribution [id number] 06:40:00* Test Item Value Reference Range Interpretation Comments Red Cell Distribution Width (test code = 95285-8) 12.5 11.7 -14.4 [facility] HospitalPlatelet Rjtzd8757-91-16 06:40:00* Test Item Value Reference Range Interpretation Comments Platelet Count (test code = 777-3) 230 140-360 [facility] HospitalNeutrophils (%) (Auto)2019-07-21 06:40:00 * Test Item Value Reference Range Interpretation Comments Neutrophils (%) (Auto) (test code = 59661-4) 67.4 38.7-80.0 [facility] HospitalLymphocytes (%) (Auto)2019-07-21 06:40:00 * Test Item Value Reference Range Interpretation Comments Lymphocytes (%) (Auto) (test code = 736-9) 25.5 18.0-39.1 [facility] HospitalMonocytes (%) (Auto)2019-07-21 06:40:00* Test Item Value Reference Range Interpretation Comments Monocytes (%) (Auto) (test code = 5905-5) 5.8 4.4-11.3 [facility] HospitalEosinophils (%) (Auto)2019-07-21 06:40:00 * Test Item Value Reference Range Interpretation Comments Eosinophils (%) (Auto) (test code = 713-8) 0.3 0.0-6.0 [facility] HospitalBasophils (%) (Auto)2019-07-21 06:40:00* Test Item Value Reference Range Interpretation Comments Basophils (%) (Auto) (test code = 706-2) 0.3 0.0-1.0 [facility] HospitalIM GRANULOCYTES %2019-07-21 06:40:00* Test Item Value Reference Range Interpretation Comments IM GRANULOCYTES % (test code = IM GRANULOCYTES %) 0.7 0.0- 1.0 [facility] HospitalNeutrophils # (Auto)2019-07-21 06:40:00* Test Item Value Reference Range Interpretation Comments Neutrophils # (Auto) (test code = 751-8) 8.2 2.1-6.9 H [facility] HospitalLymphocytes # (Auto)2019-07-21 06:40:00* Test Item Value Reference Range Interpretation Comments Lymphocytes # (Auto) (test code = 35667-1) 3.1 1.0-3.2 [facility] HospitalMonocytes # (Auto)2019-07-21 06:40:00* Test Item Value Reference Range Interpretation Comments Monocytes # (Auto) (test code = 742-7) 0.7 0.2-0.8 [facility] HospitalEosinophils # (Auto)2019-07-21 06:40:00* Test Item Value Reference Range Interpretation Comments Eosinophils # (Auto) (test code = 711-2) 0.0 0.0-0.4 [facility] HospitalBasophils # (Auto)2019-07-21 06:40:00* Test Item Value Reference Range Interpretation Comments Basophils # (Auto) (test code = 704-7) 0.0 0.0-0.1 [facility] HospitalAbsolute Immature Granulocyte (auto 2019-07-21 06:40:00* Test Item Value Reference Range Interpretation Comments Absolute Immature Granulocyte (auto (kym t code = Absolute Immature Granulocyte (auto) 0.08 0-0.1 [facility] plasma triglyceride measurement (mass/volume)2019-07-21 06:10:00* Test Item Value Reference Range Interpretation Comments Triglycerides Level (test code = 2571-8) 79 0-149 [facility] Lake[facility]um or plasma cholesterol measurement (mass/volume)2019-07-21 06:10:00* Test Item Value Reference Range Interpretation Comments Cholesterol Level (test code = 2093-3) 233 0-199 Less than 200 mg/dL Low Obzs344 - 239 mg/dL Borderline Rkeu513 m g/dl and greater High Risk [facility] plasma cholesterol in LDL measurement (mass/volume) 2019-07-21 06:10:00* Test Item Value Reference Range Interpretation Comments LDL Cholesterol (test code = 2089-1) 152 60-130 [facility] or plasma cholesterol in HDL measurement (mass/volume)2019-07-21 06:10:00* Test Item Value Reference Range Interpretation Comments HDL Cholesterol (test code = 2085-9) 65 40-60 [facility] Lake[facility]um or plasma total cholesterol/cholesterol in HDL mass ekdft5496-13-47 06:10:00* Test Item Value Reference Range Interpretation Comments Cholesterol/HDL Ratio (test code = 9830-1) 3.6 3.9-4.7 [facility] Lake[facility]um or plasma thyrotropin measurement by detection limit <= 0.005 miu/l (units/volume)2019-07-21 06:10:00* Test Item Value Reference Range Interpretation Comments Thyroid Stimulating Hormone (TSH) (test code = 50622-3) 1.314 0.350-4.940 [facility] or plasma triglyceride measurement (mass/volume)2019-07-21 06:10:00* Test Item Value Reference Range Interpretation Comments Triglycerides Level (test code = 2571-8) 79 0-149 [facility] or plasma cholesterol measurement (mass/volume)2019-07-21 06:10:00* Test Item Value Reference Range Interpretation Comments Cholesterol Level (test code = 2093-3) 233 0-199 Less than 200 mg/dL Low Lqkb029 - 239 mg/dL Borderline Ymnc240 m g/dl and greater High Risk [facility] or plasma cholesterol in LDL measurement (mass/volume) 2019-07-21 06:10:00* Test Item Value Reference Range Interpretation Comments LDL Cholesterol (test code = 2089-1) 152 60-130 [facility] or plasma cholesterol in HDL measurement (mass/volume)2019-07-21 06:10:00* Test Item Value Reference Range Interpretation Comments HDL Cholesterol (test code = 2085-9) 65 40-60 [facility] Lakeerum or plasma total cholesterol/cholesterol in HDL mass slczg8572-75-10 06:10:00* Test Item Value Reference Range Interpretation Comments Cholesterol/HDL Ratio (test code = 9830-1) 3.6 3.9-4.7 [facility] or plasma thyrotropin measurement by detection limit <= 0.005 miu/l (units/volume)2019-07-21 06:10:00* Test Item Value Reference Range Interpretation Comments Thyroid Stimulating Hormone (TSH) (test code = 93772-7) 1.314 0.350-4.940 [facility] Laketool Occult Ckndd7535-95-12 04:05:00* Test Item Value Reference Range Interpretation Comments Stool Occult Blood (test code = 2335-8) NEGATIVE NEGATIVE [facility] gastrointestinal hemoglobin roioqtpot2552-28-26 03:58:00* Test Item Value Reference Range Interpretation Comments Stool Occult Blood (test code = 2335-8) NEGATIVE NEGATIVE [facility] gastrointestinal hemoglobin zbctocatj9425-81-32 03:58:00* Test Item Value Reference Range Interpretation Comments Stool Occult Blood (test code = 2335-8) NEGATIVE NEGATIVE [facility] HospitalCreatine Kinase [id number] 16:46:00* Test Item Value Reference Range Interpretation Comments Creatine Kinase MB (test code = 43568-0) 3.40 0-5.0 [facility] HospitalTroponin [id number] 16:46:00* Test Item Value Reference Range Interpretation Comments Troponin I (test code = KAB8902) 0.071 0-0.300 [facility] HospitalCreatine Lohvhz0088-42-05 16:38:00* Test Item Value Reference Range Interpretation Comments Creatine Kinase (test code = 2157-6) 119 30-200 [facility] HospitalB-Type Natriuretic Ywmlekn3118-35-29 08:59:00* Test Item Value Reference Range Interpretation Comments B-Type Natriuretic Peptide (test code = 63492-5) 136.8 0-100 H [facility] HospitalCHEST SINGLE (PORTABLE)2019-07-20 01:00:00 [facility] [address] [place] [address] Patient Name: BRIAN RODRIGUEZ MR #: [id number] : 1960 Age/Sex: 59/M Req #: [id number] Adm Physician: Ordered by: KINDRA ESCOBAR MD Report #: [id number] Location: ER Room/Bed: Procedure: [id number] DX/CHEST SINGLE (PORTABLE) Exam Date: 07/20/19 Exam [...] mild pulmonary interstitial edema. Signed by: Leo Sanchez DO on 07/20/2019 1:01 AM Dictate d By: LEO SANCHEZ DO 0 COPY TO: KINDRA ESCOBAR MD Amylase Ofqyi4635-60-73 00:46:00* Test Item Value Reference Range Interpretation Comments Amylase Level (test code = 1798-8) 23 25-125 L [facility] HospitalLipase2019-09-12 00:46:00* Test Item Value Reference Range Interpretation Comments Lipase (test code = 3040-3) 10 8-78 [facility] HospitalD-Dimer Quantitative (PE/DVT)2019-07-20 00:21:00* Test Item Value Reference Range Interpretation Comments D-Dimer Quantitative (PE/DVT) (test code = 10091-2) 0.45 0. 00-0.45 [facility] HospitalFibrin D-dimer DDU measurement in platelet poor plasma (mass/volume)2019-07-19 23:50:00* Test Item Value Reference Range Interpretation Comments D-Dimer Quantitative (PE/DVT) (test code = 28770-5) 0.45 0. 00-0.45 [facility] or plasma amylase measurement (enzymatic activity/volume)2019-07-19 23:50:00* Test Item Value Reference Range Interpretation Comments Amylase Level (test code = 1798-8) [facility] or plasma lipase measurement (enzymatic activity/volume)2019-07-19 23:50:00* Test Item Value Reference Range Interpretation Comments Lipase (test code = 3040-3) [facility] HospitalFibrin D-dimer DDU measurement in platelet poor plasma (mass/volume)2019-07-19 23:50:00* Test Item Value Reference Range Interpretation Comments D-Dimer Quantitative (PE/DVT) (test code = 41355-2) 0.45 0. 00-0.45 [facility] Lake[facility] or plasma amylase measurement (enzymatic activity/volume)2019-07-19 23:50:00* Test Item Value Reference Range Interpretation Comments Amylase Level (test code = 1798-8) [facility] Lake[facility] or plasma lipase measurement (enzymatic activity/volume)2019-07-19 23:50:00* Test Item Value Reference Range Interpretation Comments Lipase (test code = 3040-3) [facility]
--- NOTE | 2020-07-20 02:23 | Diagnostic Imaging Report ---
EXAMINATION: CHEST SINGLE (PORTABLE) INDICATION: Chest pain COMPARISON: Abdominal CT 06/19/2020 summary: Chest x-ray 05/27/2020 FINDINGS: TUBES and LINES: None. LUNGS: Normal lung volumes. Lungs are clear. Prominent central pulmonary vasculature. Mild prominence of pulmonary interstitial markings. PLEURA: No pleural effusion or pneumothorax. HEART AND MEDIASTINUM: Cardiac size is mildly enlarged. Aortic calcifications. BONES AND SOFT TISSUES: No acute osseous lesion. Soft tissues are unremarkable. UPPER ABDOMEN: No free air under the diaphragm. IMPRESSION: Mild cardiomegaly and pulmonary vascular congestion. Subtle pulmonary interstitial edema is possible. Signed by: Leo Gomez DO on 07/20/2020 2:20 AM
[2020-07-20 03:38] VITALS: BP 132/90
--- NOTE | 2020-07-20 03:47 | NUR ---
treatment supervisor notified need for taxi voucher.
== END 2020-07-20 03:45 | disposition home or self-care (01) ==
LOC: ER 00:20
DX: R07.9 Chest pain, unspecified (principal); R06.02 Shortness of breath; I10 Essential (primary) hypertension; I50.9 Heart failure, unspecified; F41.9 Anxiety disorder, unspecified; R94.31 Abnormal electrocardiogram [ECG] [EKG]
CPT/HCPCS: 36415; 71045; 80053; 83690; 83880; 84484; 85025; 93005; 99284

== ENCOUNTER 2020-08-29 | Emergency (ER) | payer OTHER, SELFPAY ==
[~2020-08-29] VITALS: Ht 177.8 cm; Wt 81.6 kg
[2020-08-29 00:18] LABS: BASOPHILS # (AUTO) 0.1 (0.0-0.1); BASOPHILS % 0.8 % (0.0-1.0); EOSINOPHILS # (AUTO) 0.2 (0.0-0.4); EOSINOPHILS % 2.4 % (0.0-6.0); HEMATOCRIT 39.7 % (38.2-49.6); HEMOGLOBIN 13.4 g/dL (14.0-18.0); LYMPHOCYTES # (AUTO) 3.4 (1.0-3.2); LYMPHOCYTES % 40.9 % (18.0-39.1); MEAN CORPUSCULAR HEMOGLOBIN 31.8 pg (28-32); MEAN CORPUSCULAR HGB CONC 33.8 g/dL (31-35); MEAN CORPUSCULAR VOLUME 94.1 fL (81-99); MONOCYTES # (AUTO) 0.7 (0.2-0.8); MONOCYTES % 7.8 % (4.4-11.3); NEUTROPHILS % 47.9 % (38.7-80.0); PLATELET COUNT 220 x10e3/uL (140-360); RED BLOOD COUNT 4.22 x10e6/uL (4.3-5.7); RED CELL DISTRIBUTION WIDTH 12.4 % (11.7-14.4)
[2020-08-29 00:35] LABS: ALANINE AMINOTRANSFERASE 42 IU/L (0-55); ALBUMIN 4.1 g/dL (3.5-5.0); ALBUMIN/GLOBULIN RATIO 1.3 (0.8-2.0); ALKALINE PHOSPHATASE 49 IU/L (40-150); BLOOD UREA NITROGEN 24 mg/dL (7-26); BUN/CREATININE RATIO 24 (6-25); CALCIUM 8.6 mg/dL (8.4-10.2); CARBON DIOXIDE 24 mmol/L (22-29); CHLORIDE 105 mmol/L (98-107); CREATININE, SERUM 1.02 mg/dL (0.72-1.25); EST GLOMERULAR FILTRATION RATE > 60 ML/MIN (60-); GLUCOSE 99 mg/dL (74-118); SODIUM 140 mmol/L (136-145)
--- NOTE | 2020-08-29 00:41 | Emergency Department Note ---
History of Present Illnes History of Present Illness Chief Complaint: Chest Pain History of Present Illness This is a 60 year old male Chief Complaint Comment 60 Y/O MALE PT AAOX3 PRESENTS TO ED WITH REPORT OF SOB AND INTERMITTENT CHEST PAIN X2 DAYS. Multiple visits for the same. No CP now. 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 Any updates have been documented here. Past Medical History Recent Fever: No Clinical Suspicion of Infectio: No New/Unexplained Change in Ment: No Past Medical History: Hypertension, CHF, Asthma, CAD, Anxiety, Depression Other Medical History: CHRONIC L SHOULDER PAIN Past Surgical History: PCI Social History Smoking Cessation: Never Smoker Counseling Performed: No Alcohol Use: None Any Illegal Drug Use: No Other Last Tetanus: 2014 Any Pre-Existing Lines (PICC,: No Review of Systems Review of Systems Constitutional: Reports no symptoms EENTM: Reports no symptoms Cardiovascular: Reports as per HPI, Reports chest pain Respiratory: Reports as per HPI Gastrointestinal: Reports no symptoms Genitourinary: Reports no symptoms Musculoskeletal: Reports no symptoms Integumentary: Reports no symptoms Neurological: Reports no symptoms Psychological: Reports no symptoms Endocrine: Reports no symptoms Hematological/Lymphatic: Reports no symptoms Physical Exam Related Data Allergies: Coded Allergies: No Known Allergies (Unverified , 05/13/15) Triage Vital Signs Vital Signs Date Time Temp Pulse Resp B/P (MAP) Pulse Ox O2 Delivery O2 Flow Rate FiO2 08/29/20 00:10 98.9 83 16 129/92 98 Room Air Vital signs reviewed: Yes Physical Exam CONSTITUTIONAL Constitutional: Present well-developed, Present well-nourished HENT HENT: Present normocephalic, Present atraumatic, Present oropharynx clear/moist, Present nose normal HENT L/R: Present left ext ear normal, Present right ext ear normal EYES Eyes: Reports PERRL, Reports conjunctivae normal NECK Neck: Present ROM normal PULMONARY Pulmonary: Present effort normal, Present breath sounds normal CARDIOVASCULAR Cardiovascular: Present regular rhythm, Present heart sounds normal, Present capillary refill normal, Present normal rate GASTROINTESTINAL Abdominal: Present soft, Present nontender, Present bowel sounds normal GENITOURINARY Genitourinary: Present exam deferred SKIN Skin: Present warm, Present dry MUSCULOSKELETAL Musculoskeletal: Present ROM normal NEUROLOGICAL Neurological: Present alert, Present oriented x 3, Present no gross motor or sensory deficits PSYCHOLOGICAL Psychological: Present mood/affect normal, Present judgement normal Results Laboratory Result Diagram: 08/29/20 0005 08/29/20 0005 Laboratory Laboratory Tests Test 08/29/20 00:05 White Blood Count 8.37 x10e3/uL (4.8-10.8) Red Blood Count 4.22 x10e6/uL (4.3-5.7) Hemoglobin 13.4 g/dL (14.0-18.0) Hematocrit 39.7 % (38.2-49.6) Mean Corpuscular Volume 94.1 fL (81-99) Mean Corpuscular Hemoglobin 31.8 pg (28-32) Mean Corpuscular Hemoglobin Concent 33.8 g/dL (31-35) Red Cell Distribution Width 12.4 % (11.7-14.4) Platelet Count 220 x10e3/uL (140-360) Neutrophils (%) (Auto) 47.9 % (38.7-80.0) Lymphocytes (%) (Auto) 40.9 % (18.0-39.1) Monocytes (%) (Auto) 7.8 % (4.4-11.3) Eosinophils (%) (Auto) 2.4 % (0.0-6.0) Basophils (%) (Auto) 0.8 % (0.0-1.0) Neutrophils # (Auto) 4.0 (2.1-6.9) Lymphocytes # (Auto) 3.4 (1.0-3.2) Monocytes # (Auto) 0.7 (0.2-0.8) Eosinophils # (Auto) 0.2 (0.0-0.4) Basophils # (Auto) 0.1 (0.0-0.1) Absolute Immature Granulocyte (auto 0.02 x10e3/uL (0-0.1) D-Dimer Quantitative (PE/DVT) 0.32 ug/mLFEU (0.00-0.45) Sodium Level 140 mmol/L (136-145) Potassium Level 4.0 mmol/L (3.5-5.1) Chloride Level 105 mmol/L (98-107) Carbon Dioxide Level 24 mmol/L (22-29) Anion Gap 15.0 mmol/L (8-16) Blood Urea Nitrogen 24 mg/dL (7-26) Creatinine 1.02 mg/dL (0.72-1.25) Estimat Glomerular Filtration Rate > 60 ML/MIN (60-) BUN/Creatinine Ratio 24 (6-25) Glucose Level 99 mg/dL (74-118) Calcium Level 8.6 mg/dL (8.4-10.2) Total Bilirubin 0.3 mg/dL (0.2-1.2) Aspartate Amino Transf (AST/SGOT) 39 IU/L (5-34) Alanine Aminotransferase (ALT/SGPT) 42 IU/L (0-55) Alkaline Phosphatase 49 IU/L (40-150) Total Protein 7.3 g/dL (6.5-8.1) Albumin 4.1 g/dL (3.5-5.0) Globulin 3.2 g/dL (2.3-3.5) Albumin/Globulin Ratio 1.3 (0.8-2.0) Lipase 146 U/L (8-78) Lab results reviewed: Yes Imaging Imaging results reviewed: Yes Procedures 12 Lead ECG Interpretation ECG Interpretation : J2Ee Architect: Interpreted by ED physician Date: Aug 29, 2020 Prior ECG tracings: reviewed Rhythm: sinus rhythm Rate: normal QRS axis: left Conduction: left bundle branch block ST segments normal: Yes T waves normal: Yes Clinical Impression: abnormal ECG Additional Comments Known LBBB, similar to prior EKG Assessment & Plan Medical Decision Making MDM 60 y.o M presents for CP at 1PM yesterday. No CP now, multiple visits for the same. Initial diff includes ACS VS PNA vs PE among others. Cardiopulmonary w/u benign. Doubt ACS or other life threatening etiology. CP onset >8 hours and will not require repeat troponin. Reassessment Reassessment time: 00:40 Reassessment Well appearing, NAD Assessment & Plan Final Impression: (1) Chest pain Depart Disposition: HOME, SELF-CARE Last Vital Signs Date Time Temp Pulse Resp B/P (MAP) Pulse Ox O2 Delivery O2 Flow Rate FiO2 08/29/20 00:19 85 20 117/91 98 Room Air 08/29/20 00:10 98.9 Home Meds Active Scripts Famotidine (PEPCID) 20 Mg Tablet, 20 MG PO ACB for 30 Days, TAB Prov:JUANITA BARTON NP 05/27/20 Aspirin (ASPIRIN EC) 81 Mg Tablet.dr, 81 MG PO DAILY for 60 Days, #60 TAB 0 Refills Prov:DUONG OVERTON NP 03/20/20 Simvastatin (SIMVASTATIN) 40 Mg Tablet, 20 MG PO 2100 for 60 Days, #60 TAB 0 Refills Prov:DUONG OVERTON NP 03/20/20 Carvedilol (COREG) 12.5 Mg Tab, 6.25 MG PO BID for 60 Days, #120 TAB 0 Refills Prov:DUONG OVERTON NP 03/20/20 Losartan Potassium (LOSARTAN POTASSIUM) 25 Mg Tablet, 25 MG PO BID for 60 Days, #120 TAB 0 Refills Prov:DUONG OVERTON NP 03/20/20 Furosemide (LASIX) 40 Mg Tablet, 40 MG PO DAILY for 60 Days, #60 TAB 0 Refills Prov:DUONG OVERTON NP 03/20/20 JAIRO LUNA MD Aug 29, 2020 00:41
--- NOTE | 2020-08-29 01:31 | Diagnostic Imaging Report ---
EXAMINATION: CHEST SINGLE (PORTABLE) INDICATION: CP COMPARISON: Chest x-ray 07/20/2020 FINDINGS: TUBES and LINES: None. LUNGS: Normal lung volumes. Lungs are clear. Prominent central pulmonary vasculature. PLEURA: No pleural effusion or pneumothorax. HEART AND MEDIASTINUM: Cardiac size is mildly enlarged. BONES AND SOFT TISSUES: No acute osseous lesion. Soft tissues are unremarkable. UPPER ABDOMEN: No free air under the diaphragm. IMPRESSION: Mild cardiomegaly and pulmonary vascular congestion. Signed by: Leo Gomez DO on 08/29/2020 1:28 AM
[2020-08-29 02:51] VITALS: BP 135/74
== END 2020-08-29 02:50 | disposition home or self-care (01) ==
LOC: ER 00:12
DX: R07.9 Chest pain, unspecified (principal); R06.02 Shortness of breath; I10 Essential (primary) hypertension; I50.9 Heart failure, unspecified; I25.10 Atherosclerotic heart disease of native coronary artery without angina pectoris; F41.9 Anxiety disorder, unspecified; F32.9 Major depressive disorder, single episode, unspecified; R94.31 Abnormal electrocardiogram [ECG] [EKG]
CPT/HCPCS: 36415; 71045; 80053; 83690; 83880; 84484; 85025; 85379; 93005; 99284

== ENCOUNTER 2021-04-23 23:21 | Emergency (ER) | payer SELFPAY ==
[~2021-04-23] VITALS: Ht 177.8 cm; Wt 81.6 kg
[2021-04-23 23:55] LABS: AMPHETAMINES SCREEN,URINE NEGATIVE (NEGATIVE); BENZODIAZEPINES SCREEN,URINE NEGATIVE (NEGATIVE); PHENCYCLIDINE SCREEN,URINE NEGATIVE (NEGATIVE)
[2021-04-24 00:04] LABS: BASOPHILS # (AUTO) 0.1 (0.0-0.1); EOSINOPHILS # (AUTO) 0.3 (0.0-0.4); EOSINOPHILS % 3.7 % (0.0-6.0); HEMATOCRIT 34.9 % (38.2-49.6); HEMOGLOBIN 11.6 g/dL (14.0-18.0); LYMPHOCYTES # (AUTO) 2.8 (1.0-3.2); LYMPHOCYTES % 39.8 % (18.0-39.1); MEAN CORPUSCULAR HEMOGLOBIN 31.4 pg (28-32); MEAN CORPUSCULAR HGB CONC 33.2 g/dL (31-35); MEAN CORPUSCULAR VOLUME 94.3 fL (81-99); MONOCYTES # (AUTO) 0.7 (0.2-0.8); MONOCYTES % 9.3 % (4.4-11.3); NEUTROPHILS # (AUTO) 3.2 (2.1-6.9); NEUTROPHILS % 45.8 % (38.7-80.0); PLATELET COUNT 217 x10e3/uL (140-360); RED CELL DISTRIBUTION WIDTH 12.5 % (11.7-14.4)
[2021-04-24 00:17] LABS: ALANINE AMINOTRANSFERASE 22 IU/L (0-55); ALBUMIN 3.8 g/dL (3.5-5.0); ALBUMIN/GLOBULIN RATIO 1.2 (0.8-2.0); ALKALINE PHOSPHATASE 51 IU/L (40-150); ANION GAP 13.4 mmol/L (8-16); BLOOD UREA NITROGEN 22 mg/dL (7-26); BUN/CREATININE RATIO 21 (6-25); CALCIUM 8.7 mg/dL (8.4-10.2); CARBON DIOXIDE 24 mmol/L (22-29); CHLORIDE 105 mmol/L (98-107); CREATINE KINASE 177 IU/L (30-200); CREATININE, SERUM 1.03 mg/dL (0.72-1.25); EST GLOMERULAR FILTRATION RATE > 60 ML/MIN (60-); GLUCOSE 121 mg/dL (74-118); POTASSIUM 3.4 mmol/L (3.5-5.1); SODIUM 139 mmol/L (136-145)
[2021-04-24 02:43] VITALS: BP 113/78
== END 2021-04-24 02:45 | disposition home or self-care (01) ==
LOC: ER 23:41
DX: R06.02 Shortness of breath (principal); R07.9 Chest pain, unspecified; R94.31 Abnormal electrocardiogram [ECG] [EKG]; I10 Essential (primary) hypertension; I50.9 Heart failure, unspecified; J45.909 Unspecified asthma, uncomplicated; I25.10 Atherosclerotic heart disease of native coronary artery without angina pectoris; F41.9 Anxiety disorder, unspecified
CPT/HCPCS: 36415; 71045; 80053; 80307; 82550; 82553; 84484; 85025; 93005; 99284